=== PATIENT | female | born 1950 | race Asian ===

== ENCOUNTER 2018-10-25 19:56 | Inpatient (IN) | payer MEDICARE, OTHER ==
[~2018-10-25] VITALS: Ht 152.4 cm; Wt 63.1 kg
[~2018-10-25 19:56] MED LIST: AMLODIPINE; ASPI-818 PO; CARVEDILOL; CLONIDINE
[2018-10-25] MEDS ORDERED: ATROPINE 1 MG/10 ML SYRINGE ONE (20:21)
[2018-10-25] MEDS ORDERED: ATROPINE 1 MG/10 ML SYRINGE IV SCH (20:30)
[2018-10-25] MEDS ORDERED: ATROPINE 1 MG INJ IV ONE (20:30)
[2018-10-25] MEDS ORDERED: SOD CHLORIDE IVPB ONE (21:00)
[2018-10-25] MEDS ORDERED: DIGOXIN IMMUNE FAB IVPB ONE (21:00)
[2018-10-25] MEDS ORDERED: DIGOXIN IMMUNE FAB (OVINE) 1 VIAL in SOD CHLORIDE 0.9% 50 ML IVPB ONE (23:00)
[2018-10-25] MEDS ORDERED: ENOXAPARIN 60 MG/0.6 ML SYG SC ONE (23:30)
--- NOTE | 2018-10-25 23:39 | ERD ---
ER Documentation Chief Complaint Chief Complaint BRADYCARDIA HPI This is a 68-year-old female who was sent by Dr. Driscoll for bradycardia and blurry vision. He did a digoxin level this afternoon and it read greater than 5 so she was sent here. The patient is completely asymptomatic denies any chest pain shortness of breath dizziness or weakness no neurological complaints either ROS All systems reviewed and are negative except as per history of present illness. Medications Home Meds Reported Medications [Carvedilol] No Conflict Check 10/26/15 [Amlodipine] No Conflict Check 10/26/15 [Clonidine] No Conflict Check 10/26/15 Aspirin (Aspirin Low Dose) 81 Mg Tablet.dr, 81 MG PO DAILY 10/21/13 Allergies Allergies: Coded Allergies: Penicillins (Unverified Allergy, Mild, 11/23/13) RE-ENTERED UNCODED ALLERGY CODED Uncoded Allergies: PCN (Allergy, Mild, 11/10/13) RASH NKDA (Adverse Reaction, Unknown, 10/26/15) PMhx/Soc History of Surgery: Yes (CORONARY ARTERY BYPASS GRAFT) Anesthesia Reaction: No Hx Neurological Disorder: Yes (MINI STROKE) Hx Respiratory Disorders: No Hx Cardiac Disorders: Yes (CORONARY ARTERY DISEASE, HYPERTENSION) Hx Psychiatric Problems: No Hx Miscellaneous Medical Probl: No Hx Alcohol Use: No Hx Substance Use: No Hx Tobacco Use: No Smoking Status: Never smoker FmHx Family History: No coronary disease Physical Exam Vitals Vital Signs Date Temp Pulse Resp B/P (MAP) Pulse Ox O2 O2 Flow FiO2 Time Delivery Rate 10/25/18 43 22 138/63 96 Room Air 23:27 (88) 10/25/18 97.2 36 21 149/81 96 20:25 (103) Physical Exam Const: Well-developed, well-nourished Head: Atraumatic, normocephalic Eyes: Normal Conjunctiva, PERRLA, EOMI, normal sclera, no nystagmus ENT: Normal External Ears, Nose and Mouth, moist mucus membranes. Neck: Full range of motion. No meningismus, no lymphadenopathy. Resp: Clear to auscultation bilaterally, no wheezing, rhonchi, rales Cardio: Bradycardia, no murmurs, S1 S2 present Abd: Soft, non tender x 4, non distended. Normal bowel sounds, no guarding or rebound, no pulsitile abdominal masses or bruits Skin: No petechiae or rashes, no ecchymosis , no maculopapular rash Back: No midline or flank tenderness Ext: No cyanosis, or edema, FROM x 4, normal inspection, neurovascularly intact x 4 Neur: Awake and alert, STR 5/5 x 4, sensation intact x 4, no focal findings, cerebellum intact Psych: Normal Mood and Affect Result Diagram: 10/25/18200910/25/182009 Results 24 hrs Laboratory Tests Test 10/25/18 20:10 White Blood Count 5.7 10^3/ul Red Blood Count 3.56 10^6/ul Hemoglobin 10.8 g/dl Hematocrit 34.2 % Mean Corpuscular Volume 96.1 fl Mean Corpuscular Hemoglobin 30.3 pg Mean Corpuscular Hemoglobin Concent 31.6 g/dl Red Cell Distribution Width 16.2 % Platelet Count 94 10^3/UL Mean Platelet Volume 12.8 fl Immature Granulocytes % 0.200 % Neutrophils % 74.6 % Lymphocytes % 13.4 % Monocytes % 8.8 % Eosinophils % 2.1 % Basophils % 0.9 % Nucleated Red Blood Cells % 0.0 /100WBC Immature Granulocytes # 0.010 10^3/ul Neutrophils # 4.3 10^3/ul Lymphocytes # 0.8 10^3/ul Monocytes # 0.5 10^3/ul Eosinophils # 0.1 10^3/ul Basophils # 0.1 10^3/ul Nucleated Red Blood Cells # 0.0 10^3/ul Sodium Level 137 mmol/L Potassium Level 5.5 mmol/L Chloride Level 102 mmol/L Carbon Dioxide Level 23 mmol/L Anion Gap 12 Blood Urea Nitrogen 81 mg/dl Creatinine 3.69 mg/dl Est Glomerular Filtrat Rate mL/min 12 mL/min Glucose Level 130 mg/dl Calcium Level 9.0 mg/dl Magnesium Level 2.9 mg/dl Total Bilirubin 1.0 mg/dl Direct Bilirubin 0.10 mg/dl Indirect Bilirubin 0.9 mg/dl Aspartate Amino Transf (AST/SGOT) 243 IU/L Alanine Aminotransferase (ALT/SGPT) 204 IU/L Alkaline Phosphatase 405 IU/L Troponin I 0.148 ng/ml B-Type Natriuretic Peptide 32846 PG/ML Total Protein 8.2 g/dl Albumin 4.0 g/dl Globulin 4.20 g/dl Albumin/Globulin Ratio 0.95 Digoxin Level 7.2 ng/ml Current Medications Medications Dose Sig/Ean Start Time Status Last (Trade) Ordered Route PRN Stop Time Admin Dose Reason Admin Atropine 1 mg ONCE ONCE 10/25/18 Cancel Sulfate IV 20:30 10/25/18 (Atropine) 20:31 Digoxin 50 ml @ ONCE ONCE 10/25/18 DC 10/25/18 Immune LAKHWINDER 3 100 mls/hr IVPB 21:00 10/25/18 22:34 vial/Sodium 21:29 Chloride Atropine 1 mg ONCE IV 10/25/18 DC 10/25/18 Sulfate 20:30 10/25/18 20:52 (Atropine 23:00 (Syringe)) Atropine 1 mg STK-MED 10/25/18 DC Sulfate ONCE .ROUTE 20:21 10/25/18 (Atropine 20:22 (Syringe)) Digoxin 50 ml @ ONCE ONCE 10/25/18 DC Immune LAKHWINDER 1 100 mls/hr IVPB 23:00 10/25/18 vial/Sodium 23:29 Chloride Enoxaparin 50 mg ONCE ONCE 10/25/18 DC Sodium SC 23:30 10/25/18 (Lovenox) 23:31 Procedures/MDM EKG: Rate/Rhythm: Idioventricular rhythm heart rate 36 QRS, ST, QT: NORMAL DC, QRS, QT] Impression: Abnormal EKG EKG: Rate/Rhythm: Atrial fibrillation with slow ventricular response QRS, ST, QT: NORMAL DC, QRS, QT] Impression: A. fib with slow ventricular response Patient was given atropine 1 mg x 2. Heart rate has been remaining stable in the upper 30s and in the 40s. The patient was given 4 vials of Digibind, I ordered 10 vials but the hospital only has 4 in stock The patient's potassium is 5.5. Magnesium is 2.5. Patient is hemodynamically stable bradycardia. Spoke with the primary Dr. Driscoll and will admit to telemetry, will let the digoxin wear off Critical Care Time: 40 minutes Treatments/Evaluations: Close monitoring and treatment of unstable vital signs, cardiorespiratory, and neurologic status, while maintaining tight balance of fluid, respiratory, and cardiac interventions. This time includes discussing the case with the patient and the patient's family. This time does not include all procedures stated elsewhere in this record. This time also includes reviewing old records, labs and radiological studies. This time includes examining and re- examining the patient. Additionally, this time also includes arranging care with admitting and consulting physicians. Departure Diagnosis: Primary Impression: Digoxin toxicity Encounter type: initial encounter Injury intent: accidental or unintentional Qualified Codes: T46.0X1A - Poisoning by cardiac-stimulant glycosides and drugs of similar action, accidental (unintentional), initial encounter Additional Impression: Bradycardia Condition: Stable ERIN KEITA DO Oct 25, 2018 23:39
[2018-10-26] VITALS (11 sets, daily range): BP systolic 150–174; BP diastolic 65–84; PULSE 44–57; RESP 16–20; BMI 20.5
[2018-10-26] MEDS ORDERED: ONDANSETRON 4 MG INJ IV PRN
[2018-10-26] MEDS ORDERED: ATROPINE 1 MG/10 ML SYRINGE IV ONE
[2018-10-26] MEDS ORDERED: ATROPINE 1 MG INJ IV ONE
[2018-10-26] MEDS ORDERED: ASPI-1044 PO (00:30)
[2018-10-26] MEDS ORDERED: AMLO-145 PO (00:30)
[2018-10-26] MEDS ORDERED: ATOR40TA68 PO (00:30)
[2018-10-26] MEDS ORDERED: METO-429 PO (00:30)
[2018-10-26] MEDS ORDERED: FURO20TA3 PO (00:30)
[2018-10-26] MEDS ORDERED: LISI2.5T59 PO (00:30)
[2018-10-26] MEDS ORDERED: RIVA20TA5 PO (00:30)
[2018-10-26] MEDS ORDERED: PANT40TA4 PO (03:21)
[2018-10-26] MEDS ORDERED: LOSA50TA14 PO (03:21)
[2018-10-26] MEDS ORDERED: ALLO300T2 PO (03:21)
[2018-10-26] MEDS ORDERED: FURO40TA4 PO (03:21)
[2018-10-26] MEDS ORDERED: APIX2.5T PO (03:21)
[2018-10-26] MEDS ORDERED: TRAM50TA2 PO (03:21)
[2018-10-26] MEDS ORDERED: AMIO200T4 PO (03:21)
[2018-10-26] MEDS ORDERED: ACETAMINOPHEN 325 MG TAB PO PRN ×2 (04:30)
[2018-10-26] MEDS ORDERED: traMADol 50 MG TAB PO PRN (04:30)
[2018-10-26] MEDS ORDERED: NACL 0.9% 3 ML SYG IV SCH (04:30)
[2018-10-26] MEDS: SOD CHLORIDE 0.9% 1,000 ML IV SCH (04:47)
[2018-10-26] MEDS: PANTOPRAZOLE (EC) 40 MG TAB PO SCH ×2 (04:47→05:40)
[2018-10-26] MEDS: ASPIRIN 81 MG TAB PO SCH (08:31)
[2018-10-26] MEDS: MULTIVITAMINS/MINERALS TAB PO SCH (08:31)
[2018-10-26] MEDS: LOSARTAN 50 MG TAB PO SCH (08:32)
[2018-10-26] MEDS: POLYETHYLENE GLYCOL 17 GM PACKET PO SCH (08:32)
[2018-10-26] MEDS ORDERED: ALLOPURINOL 300 MG TAB PO SCH (09:00)
--- NOTE | 2018-10-26 11:43 | HP ---
Date/Time of Note Date/Time of Note DATE: 10/26/18 TIME: 11:40 Assessment/Plan VTE [place]axis [place] [facility] [place]: 6 [place]CD [place] [facility] [place] Yes Pharmacological prophylaxis: apixaban Lines/Catheters IV Catheter Type (from [facility]): Saline Lock Urinary Cath still in place: No Assessment/Plan Hospital Course 1. Digoxin toxicity. bradycardia. 2. CHF with elevated BNP. Trop. is also elevated. 3. Hypertension 4. CAD 5. S/p CORONARY ARTERY BYPASS 6. Hyperkalemia, resolved. It might be related to prerenal reasons, bradycardia. 7. DOUGLAS on CKD. 8. hx of small transverse colon polyp, that was removed using the biopsy forceps. 9. Diverticulosis of the colon. 10. Normocytic normochromic anemia more likely due to chronic kidney disease 11. Transaminitis 2.2 dig. toxicity vs chronic. Base line is unknown 12. Gout Assessment/Plan -dr Buchanan cardiology consult aware -DVT proph. eliquiz -iron panel -GI proph. Protonix -telemetry service -daily creatinine -c/w home meds -daily IV fluids Result Diagram: 10/26/18 0745 10/26/18 0745 Results 24hrs Laboratory Tests Test 10/25/18 20:10 10/26/18 07:45 White Blood Count 5.7 5.9 Red Blood Count 3.56 L 3.67 L Hemoglobin 10.8 L 11.2 L Hematocrit 34.2 L 35.1 L Mean Corpuscular Volume 96.1 95.6 Mean Corpuscular Hemoglobin 30.3 30.5 Mean Corpuscular Hemoglobin Concent 31.6 L 31.9 L Red Cell Distribution Width 16.2 H 16.5 H Platelet Count 94 L 104 L Mean Platelet Volume 12.8 H 12.4 H Immature Granulocytes % 0.200 0.300 Neutrophils % 74.6 82.9 H Lymphocytes % 13.4 L 9.4 L Monocytes % 8.8 6.0 Eosinophils % 2.1 0.9 Basophils % 0.9 0.5 Nucleated Red Blood Cells % 0.0 0.0 Immature Granulocytes # 0.010 0.020 Neutrophils # 4.3 4.9 Lymphocytes # 0.8 0.6 L Monocytes # 0.5 0.4 Eosinophils # 0.1 0.1 Basophils # 0.1 0.0 Nucleated Red Blood Cells # 0.0 0.0 Sodium Level 137 142 Potassium Level 5.5 H 4.2 Chloride Level 102 105 Carbon Dioxide Level 23 24 Anion Gap 12 13 Blood Urea Nitrogen 81 H 77 H Creatinine 3.69 H 3.26 H Est Glomerular Filtrat Rate mL/min 12 L 14 L Glucose Level 130 99 Calcium Level 9.0 8.9 Magnesium Level 2.9 H Total Bilirubin 1.0 1.2 Direct Bilirubin 0.10 0.20 Indirect Bilirubin 0.9 1.0 Aspartate Amino Transf (AST/SGOT) 243 H 205 H Alanine Aminotransferase (ALT/SGPT) 204 H 174 H Alkaline Phosphatase 405 H 368 H Troponin I 0.148 *H B-Type Natriuretic Peptide 85737 H Total Protein 8.2 H 8.0 Albumin 4.0 3.9 Globulin 4.20 H 4.10 H Albumin/Globulin Ratio 0.95 0.95 Digoxin Level 7.2 *H 14.2 #*H HPI/ROS Admit Date/Time Admit Date/Time Oct 25, 2018 at 23:41 Hx of Present Illness This is a 68-year-old female with history of hypertension, CKD, gout, CHF, CAD, hyperlipidemia, cardiac stent was sent by Dr. Driscoll for bradycardia and blurry vision. He did a digoxin level and it was elevated. In hospital it is 7.2 and 14.2. Pt also has positive troponin level. Pt is a poor historian, unknown her base line ROS no complaints PMH/Family/Social Past Medical History Medications Current Medications Sodium Chloride 1,000 ml @ 50 mls/hr Q20H IV Last administered on 10/26/18at 04:47; Admin Dose 50 MLS/HR; Start 10/26/18 at 04:30 IV Flush (NS 3 ml) 3 ml PER PROTOCOL IV ; Start 10/26/18 at 04:30 Ondansetron HCl (Zofran Inj) 4 mg Q6H PRN IV NAUSEA/VOMITING; Start 10/26/18 at 04:30 Acetaminophen (Tylenol Tab) 650 mg Q6H PRN PO .PAIN 1-3 OR TEMP; Start 10/26/18 at 04:30 Pantoprazole (Protonix Tab) 40 mg DAILY@06 PO Last administered on 10/26/18at 05:40; Admin Dose 40 MG; Start 6/8/19 at 06:00 Allopurinol (Zyloprim) 300 mg DAILY PO Last administered on 10/26/18 08:31; Admin Dose 300 MG; Start 10/26/18 at 09:00 Aspirin (Aspirin) 81 mg DAILY PO Last administered on 10/26/18 08:31; Admin Dose 81 MG; Start 10/26/18 at 09:00 Losartan Potassium (Cozaar) 50 mg DAILY PO Last administered on 10/26/18 08:32; Admin Dose 50 MG; Start 10/26/18 at 09:00 Multivitamins/ Minerals (Theragran-M) 1 tab DAILY PO Last administered on 10/26/18 08:31; Admin Dose 1 TAB; Start 10/26/18 at 09:00 Atorvastatin Calcium (Lipitor) 40 mg HS PO ; Start 10/26/18 at 21:00 Tramadol HCl (Ultram) 50 mg Q6 PRN PO PAIN; Start 10/26/18 at 04:30 Polyethylene Glycol (Miralax) 17 gm DAILY PO Last administered on 10/26/18 08:32; Admin Dose 17 GM; Start 10/26/18 at 09:00 Coded Allergies: Penicillins (Unverified Allergy, Mild, 11/23/13) RE-ENTERED UNCODED ALLERGY CODED Social History Smoking Status: Never smoker Exam/Review of Systems Vital Signs Vitals Vital Signs Date Temp Pulse Resp B/P (MAP) Pulse Ox O2 O2 Flow FiO2 Time Delivery Rate 10/26/18 98.0 53 16 161/77 93 11:21 (105) 10/26/18 Room Air 03:00 10/26/18 2.0 02:00 Intake and Output 10/25/18 10/25/18 10/26/18 1515:00 23:00 07:00 IntakeIntake Total 100 ml BalanceBalance 100 ml Exam Exam pigmented skin Constitutional: alert, frail Head: normocephalic Eyes: nl conjunctiva ENMT: nl external ears & nose Neck: supple Cardiovascular: regular rate and rhythm, other (bradycardia) Gastrointestinal: soft ARSALAN MAJANO Oct 26, 2018 11:43
--- NOTE | 2018-10-26 18:04 | CONS ---
DATE OF ADMISSION: 10/25/2018 DATE OF CONSULTATION: 10/26/2018 REASON FOR CONSULTATION: Bradycardia, digoxin toxicity. REQUESTING PHYSICIAN: Juan Driscoll MD HISTORY OF PRESENT ILLNESS: Ms. Moncada is a 68-year-old female with history of coronary artery disease, status post coronary bypass graft surgery in 2013, receiving a GARCIA to LAD, SVG to OM, SVG to PDA, hypertension, dyslipidemia, prior myocardial infarction, cardiomyopathy, decreased left ventricular ejection fraction, who was noted at her chronic care facility to tell her primary physician that she is having visual problems after a recent admit to an outside hospital where she had required digoxin for likely treatment of atrial fibrillation. The patient subsequently transferred to [facility] where upon arrival, temperature 97.2, blood pressure 139/81, pulse 96, respiratory rate 21, satting 96%. The patient's labs revealed white count 5.7, hemoglobin 10.8, platelet count of 94. Sodium 137, potassium 5.5, creatinine 3.69, magnesium 2.9, AST 243, ALT 24, alkaline phosphatase 405. Troponin 0.148. BNP of 11,700. Digoxin level of 7.2 followed by digoxin level of 14.2. The patient's chest x-ray revealed mild history of pulmonary congestion. The patient's electrocardiogram had revealed a probable ventricular escape rhythm at a rate of 34 with a left axis deviation, nonspecific ST-T abnormalities, right bundle branch block pattern. The patient subsequently required treatment with Digibind, a dose of atropine, has been admitted to the floor where she remains at this time. Continues to have heart rates in the 40s, likely a junctional escape rhythm at this time with elevated systolic blood pressures. The patient denies chest pain, shortness of breath, ongoing visual disturbances. PAST MEDICAL HISTORY: As above in HPI. MEDICATIONS CURRENTLY IN HOSPITAL: 1. Lipitor 40 mg at bedtime. 2. Eliquis 2.5 mg p.o. b.i.d. 3. Allopurinol 200 mg daily. 4. Aspirin 81 daily. 5. Cozaar 50 mg daily. 6. Theragran. 7. MiraLax. 8. Protonix. 9. IV fluid hydration. ALLERGIES: PENICILLIN. SOCIAL HISTORY: No current tobacco, EtOH or illicit drug use. FAMILY HISTORY: No history of sudden cardiac or early CAD. REVIEW OF SYSTEMS: As above in HPI. CONSTITUTIONAL: No fevers, chills. PULMONARY: No current shortness of breath. CARDIOVASCULAR: Bradycardia. GASTROINTESTINAL: No vomiting. GENITOURINARY: No hematuria. MUSCULOSKELETAL: Degenerative joint disease. PSYCHIATRIC: The patient denies depression. NEUROLOGIC: No documented history of CVA. PHYSICAL EXAMINATION: VITAL SIGNS: Temperature of 98, blood pressure 120/77, pulse 60, respiratory rate 16, sat 98%. GENERAL: The patient is alert, awake, in no acute distress. NECK: JVP approximately 9 cm of water. CHEST: Fair air movement throughout. HEART: Bradycardic, regular rhythm, normal S1, S2, I/ systolic murmur, nondisplaced PMI. ABDOMEN: Positive bowel sounds, soft. EXTREMITIES: No edema, 1+ pulses bilaterally to posterior tibial. LABORATORY DATA: Most recent from today, sodium 143, potassium 4.2, creatinine 3.26, BUN of 77, AST 205, ALT 174, alkaline phosphatase 368. White blood cell count 5.9, hemoglobin 11.2, platelet count of 104. IMAGING STUDIES: As above in HPI revealed pulmonary vascular congestion. ECG: As above in HPI. No further electrocardiograms for my review at this time. IMPRESSION: 1. Bradycardia, in the setting of digoxin toxicity with sequelae of that digoxin toxicity and visual disturbances. 2. Slowly improving status post Digibind. 3. Paroxysmal atrial fibrillation, currently in a likely junctional escape rhythm in the setting of digoxin toxicity, on Eliquis. 4. Hypertension, uncontrolled. 5. History of cardiomyopathy, decreased left ventricular ejection fraction. 6. History of coronary artery disease, status post coronary artery bypass graft surgery x4 in 2014. 7. Positive troponin in the setting of severe renal dysfunction and 3 bradycardia. 8. Dyslipidemia. 9. Acute on chronic renal failure, being followed by Dr. Driscoll with ongoing hydration. 10. Hyperkalemia, improved. 11. Increased liver function tests, ongoing. RECOMMENDATIONS: 1. At this time, we would maintain patient on telemetry monitoring to follow rhythm and rates closely. 2. Continue to hold digoxin and follow heart rate closely and maintain pacer pads at this time and follow digoxin levels. I do not think there is no reason to give Digibind at this time just continue to follow the patient's rhythm closely. 3. Continue the patient's aspirin prophylaxis and Eliquis for prevention of thromboembolic complications in the setting of paroxysmal atrial fibrillation. We are going to check a 2D echo to reassess patient's ejection fraction, wall motion and major abnormalities. 4. Continue to trend the patient's cardiac enzymes, assess for any significant ongoing cardiac damage. 5. Continue the patient's IV fluid hydration, monitor closely given history of decreased EF. 6. Consider additional antihypertensives to improve overall systolic blood pressure control. Given the patient's decreased EF likely would proceed with the hydralazine. Thank you for allowing me to take part in the care of this patient. I will continue to follow very closely with you. Further recommendations will be made as the patient progresses through her inpatient hospital clinical course. Dictated By: ABDI JUÁREZ/NEREIDA Conf#: [id number] DID#: [id number] MTDD
[2018-10-26] MEDS: APIXABAN 5 MG TABLET PO SCH (22:51)
[2018-10-26] MEDS: ATORVASTATIN 40 MG TAB PO SCH (22:52)
[2018-10-27] VITALS (12 sets, daily range): BP systolic 125–163; BP diastolic 58–78; PULSE 37–52; RESP 17–18
[2018-10-27] MEDS: SOD CHLORIDE 0.9% 1,000 ML IV SCH (04:36)
[2018-10-27] MEDS: PANTOPRAZOLE (EC) 40 MG TAB PO SCH (05:10)
[2018-10-27] MEDS: POLYETHYLENE GLYCOL 17 GM PACKET PO SCH (08:31)
[2018-10-27] MEDS: MULTIVITAMINS/MINERALS TAB PO SCH (08:32)
[2018-10-27] MEDS: ASPIRIN 81 MG TAB PO SCH (08:32)
[2018-10-27] MEDS: APIXABAN 5 MG TABLET PO SCH ×2 (08:32→22:15)
[2018-10-27] MEDS: LOSARTAN 50 MG TAB PO SCH (08:33)
[2018-10-27] MEDS: ALLOPURINOL 100 MG TAB PO SCH (08:33)
--- NOTE | 2018-10-27 11:58 | PN ---
Date/Time of Note Date/Time of Note DATE: 10/27/18 TIME: 11:58 Assessment/Plan VTE Prophylaxis Risk score (from [facility] [place]0 risk: 6 SCD applied (from [facility] [place]): Yes Pharmacological prophylaxis: apixaban Lines/Catheters IV Catheter Type (from [facility]): Saline Lock Urinary Cath still in place: No Assessment/Plan Hospital Course 1. Digoxin toxicity. bradycardia. 2. CHF with elevated BNP. Trop. is also elevated. 3. Hypertension 4. CAD 5. S/p CORONARY ARTERY BYPASS 6. Hyperkalemia, resolved. It might be related to prerenal reasons, bradycardia. 7. DOUGLAS on CKD. Creatinine is improved 8. hx of small transverse colon polyp, that was removed using the biopsy forceps. 9. Diverticulosis of the colon. 10. Normocytic normochromic anemia more likely due to chronic kidney disease 11. Transaminitis 2.2 dig. toxicity vs chronic. Base line is unknown. Improved 12. Gout 13. Hypothyroidism 14. Prediabetic Assessment/Plan -dr Buchanan cardiology consult aware -pos. troponin -DVT proph. eliquiz -iron panel tmv -c/w Allopurinol 200 mg po daily -start thyroid supplement -GI proph. Protonix -telemetry service -daily creatinine -c/w home meds -daily gentle IV fluids Result Diagram: 10/27/1852810/27/18 0529 Results 24hrs Laboratory Tests Test 10/27/18 05:29 White Blood Count 5.5 Red Blood Count 3.33 L Hemoglobin 10.2 L Hematocrit 31.3 L Mean Corpuscular Volume 94.0 Mean Corpuscular Hemoglobin 30.6 Mean Corpuscular Hemoglobin Concent 32.6 Red Cell Distribution Width 16.8 H Platelet Count 80 #L Mean Platelet Volume 13.6 H Immature Granulocytes % 0.400 Neutrophils % Segmented Neutrophils % (Manual) 89 H Band Neutrophils % (Manual) 1 Lymphocytes % Lymphocytes % (Manual) 8 L Monocytes % Monocytes % (Manual) 1 Eosinophils % Eosinophils % (Manual) 1 Basophils % Nucleated Red Blood Cells % 0.0 Immature Granulocytes # 0.020 Neutrophils # Neutrophils # (Manual) 4.9 Band Neutrophils # 0.0 Lymphocytes (Manual) 0.4 L Lymphocytes # Monocytes # Monocytes # (Manual) 0.0 L Eosinophils # Basophils # Nucleated Red Blood Cells # Platelet Estimate DECREASED Polychromasia 3+ Poikilocytosis 1+ Anisocytosis 3+ Macrocytosis 3+ Sodium Level 142 Potassium Level 4.1 Chloride Level 110 Carbon Dioxide Level 23 Anion Gap 9 Blood Urea Nitrogen 64 H Creatinine 2.90 H Est Glomerular Filtrat Rate mL/min 16 L Glucose Level 98 Hemoglobin A1c 5.8 Calcium Level 8.9 Creatine Kinase 60 Creatine Kinase Index 9.5 Creatinine Kinase MB (Mass) 5.69 H Troponin I 0.181 *H Digoxin Level 3.7 #*H Subjective 24 Hr Interval Summary Constitutional: no complaints Cardiovascular: chest pain; No no complaints, No edema, No lightheadedness, No orthopenea, No palpitations, No paroxysmal nocturnal dyspnea, No other Exam/Review of Systems Exam Vitals Vital Signs Date Temp Pulse Resp B/P (MAP) Pulse Ox O2 O2 Flow FiO2 Time Delivery Rate 10/27/18 97.7 42 17 163/78 94 11:37 (106) 10/27/18 Room Air 03:40 10/26/18 2.0 02:00 Intake and Output 10/26/18 10/26/18 10/27/18 1515:00 23:00 07:00 IntakeIntake Total 900 ml 820 ml BalanceBalance 900 ml 820 ml Constitutional: alert, oriented Respiratory: clear to auscultation Cardiovascular: regular rate and rhythm, other (bradycardia) Gastrointestinal: soft Musculoskeletal: muscle weakness Results Results 24hrs Laboratory Tests Test 10/27/18 05:29 White Blood Count 5.5 Red Blood Count 3.33 L Hemoglobin 10.2 L Hematocrit 31.3 L Mean Corpuscular Volume 94.0 Mean Corpuscular Hemoglobin 30.6 Mean Corpuscular Hemoglobin Concent 32.6 Red Cell Distribution Width 16.8 H Platelet Count 80 #L Mean Platelet Volume 13.6 H Immature Granulocytes % 0.400 Neutrophils % Segmented Neutrophils % (Manual) 89 H Band Neutrophils % (Manual) 1 Lymphocytes % Lymphocytes % (Manual) 8 L Monocytes % Monocytes % (Manual) 1 Eosinophils % Eosinophils % (Manual) 1 Basophils % Nucleated Red Blood Cells % 0.0 Immature Granulocytes # 0.020 Neutrophils # Neutrophils # (Manual) 4.9 Band Neutrophils # 0.0 Lymphocytes (Manual) 0.4 L Lymphocytes # Monocytes # Monocytes # (Manual) 0.0 L Eosinophils # Basophils # Nucleated Red Blood Cells # Platelet Estimate DECREASED Polychromasia 3+ Poikilocytosis 1+ Anisocytosis 3+ Macrocytosis 3+ Sodium Level 142 Potassium Level 4.1 Chloride Level 110 Carbon Dioxide Level 23 Anion Gap 9 Blood Urea Nitrogen 64 H Creatinine 2.90 H Est Glomerular Filtrat Rate mL/min 16 L Glucose Level 98 Hemoglobin A1c 5.8 Calcium Level 8.9 Creatine Kinase 60 Creatine Kinase Index 9.5 Creatinine Kinase MB (Mass) 5.69 H Troponin I 0.181 *H Digoxin Level 3.7 #*H Medications Medication Current Medications Sodium Chloride 1,000 ml @ 50 mls/hr Q20H IV Last administered on 10/27/18 04:36; Admin Dose 50 MLS/HR; Start 10/26/18 at 04:30 IV Flush (NS 3 ml) 3 ml PER PROTOCOL IV ; Start 10/26/18 at 04:30 Ondansetron HCl (Zofran Inj) 4 mg Q6H PRN IV NAUSEA/VOMITING; Start 10/26/18 at 04:30 Acetaminophen (Tylenol Tab) 650 mg Q6H PRN PO .PAIN 1-3 OR TEMP; Start 10/26/18 at 04:30 Pantoprazole (Protonix Tab) 40 mg DAILY@06 PO Last administered on 10/27/18 05:10; Admin Dose 40 MG; Start 10/26/18 at 06:00 Aspirin (Aspirin) 81 mg DAILY PO Last administered on 10/27/18 08:32; Admin D ose 81 MG; Start 10/26/18 at 09:00 Losartan Potassium (Cozaar) 50 mg DAILY PO Last administered on 10/27/18 08:33; Admin Dose 50 MG; Start 10/26/18 at 09:00 Multivitamins/ Minerals (Theragran-M) 1 tab DAILY PO Last administered on 10/27/18 08:32; Admin Dose 1 TAB; Start 10/26/18 at 09:00 Atorvastatin Calcium (Lipitor) 40 mg HS PO Last administered on 10/26/18 22:52; Admin Dose 40 MG; Start 10/26/18 at 21:00 Tramadol HCl (Ultram) 50 mg Q6 PRN PO PAIN; Start 10/26/18 at 04:30 Polyethylene Glycol (Miralax) 17 gm DAILY PO Last administered on 10/27/18 08:31; Admin Dose 17 GM; Start 10/26/18 at 09:00 Apixaban (Eliquis) 2.5 mg BID PO Last administered on 10/27/18at 08:32; Admin Dose 2.5 MG; Start 10/26/18 at 21:00 Hydralazine HCl (Apresoline) 25 mg Q8 PO Last administered on 10/27/18at 05:11; Admin Dose 25 MG; Start 10/26/18 at 15:00 Allopurinol (Zyloprim) 200 mg DAILY PO Last administered on 10/27/18at 08:33; Admin Dose 200 MG; Start 10/27/18 at 09:00 ARSALAN MAJANO Oct 27, 2018 11:58
--- NOTE | 2018-10-27 14:47 | CONS ---
Assessment/Plan Assessment/Plan Hospital Course (Demo Recall) IMPRESSION: 1. Bradycardia, in the setting of digoxin toxicity with sequelae of that digoxin toxicity and visual disturbances.- slowly decreasing levels of digoxin with ongoing bradycardia but stable to elevated BP 2. Digoxin toxicity-Slowly improving status post Digibind. 3. Paroxysmal atrial fibrillation, currently in a likely junctional escape rhythm in the setting of digoxin toxicity, on Eliquis. 4. Hypertension, uncontrolled still 5. History of cardiomyopathy, decreased left ventricular ejection fraction. 6. History of coronary artery disease, status post coronary artery bypass graft surgery x4 in 2013. 7. Positive troponin in the setting of severe renal dysfunction and severe bradycardia- no sig uptrend 8. Dyslipidemia. 9. Acute on chronic renal failure, being followed by Dr. Dale with ongoing hydration.-slowly improving 10. Hyperkalemia, improved. 11. Increased liver function tests, ongoing. 12. Hypothyroid-elevated TSH Recc: -Tele -serial ecg's -continue eliquis -Contineu to follow rhythm/rate clsoely -continue losartan and hydralazine with probable need for increase in dose of hydralazine to improve BP control -Follow visual disturbance/appetite/GI symptoms closely -started on synthroid Consultation Date/Type/Reason Admit Date/Time Oct 25, 2018 at 23:41 Initial Consult Date 10/26/18 Type of Consult Cardiology Reason for Consultation digoxin toxicity/bradycardia Requesting Provider: RADHA DALE Date/Time of Note DATE: 10/27/18 TIME: 14:41 Exam/Review of Systems Vital Signs Vitals Vital Signs Date Temp Pulse Resp B/P (MAP) Pulse Ox O2 O2 Flow FiO2 Time Delivery Rate 10/27/18 37 12:44 10/27/18 97.7 17 163/78 94 11:37 (106) 10/27/18 Room Air 03:40 10/26/18 2.0 02:00 Intake and Output 10/26/18 10/26/18 10/27/18 1515:00 23:00 07:00 IntakeIntake Total 900 ml 820 ml BalanceBalance 900 ml 820 ml Exam Exam Review of Systems: CONSTITUTIONAL: No fevers, chills. PULMONARY: No sob CARDIOVASCULAR: No chest pain/palpitations GASTROINTESTINAL: mild nausea/decreased appetite GENITOURINARY: No hematuria/dysuria. MUSCULOSKELETAL: No myagias/arthalgias. PSYCHIATRIC: The patient denies depression. NEUROLOGIC: No weakness, + visual disturbance ongoing Constitutional: alert Psych: no complaints Head: normocephalic ENMT: mucosa pink and moist Neck: supple, jvd (cm water) Cardiovascular: regular rate and rhythm Gastrointestinal: soft, non-tender Musculoskeletal: muscle tone (normal) Extremities: edema (none) Neurological: other (No focal deficits, + visual disturbance) Labs Result Diagram: 10/27/1852810/27/18 0529 Results 24hrs Laboratory Tests Test 10/27/18 05:29 White Blood Count 5.5 Red Blood Count 3.33 L Hemoglobin 10.2 L Hematocrit 31.3 L Mean Corpuscular Volume 94.0 Mean Corpuscular Hemoglobin 30.6 Mean Corpuscular Hemoglobin Concent 32.6 Red Cell Distribution Width 16.8 H Platelet Count 80 #L Mean Platelet Volume 13.6 H Immature Granulocytes % 0.400 Neutrophils % Segmented Neutrophils % (Manual) 89 H Band Neutrophils % (Manual) 1 Lymphocytes % Lymphocytes % (Manual) 8 L Monocytes % Monocytes % (Manual) 1 Eosinophils % Eosinophils % (Manual) 1 Basophils % Nucleated Red Blood Cells % 0.0 Immature Granulocytes # 0.020 Neutrophils # Neutrophils # (Manual) 4.9 Band Neutrophils # 0.0 Lymphocytes (Manual) 0.4 L Lymphocytes # Monocytes # Monocytes # (Manual) 0.0 L Eosinophils # Basophils # Nucleated Red Blood Cells # Platelet Estimate DECREASED Polychromasia 3+ Poikilocytosis 1+ Anisocytosis 3+ Macrocytosis 3+ Sodium Level 142 Potassium Level 4.1 Chloride Level 110 Carbon Dioxide Level 23 Anion Gap 9 Blood Urea Nitrogen 64 H Creatinine 2.90 H Est Glomerular Filtrat Rate mL/min 16 L Glucose Level 98 Hemoglobin A1c 5.8 Calcium Level 8.9 Creatine Kinase 60 Creatine Kinase Index 9.5 Creatinine Kinase MB (Mass) 5.69 H Troponin I 0.181 *H Digoxin Level 3.7 #*H Medications Medications Current Medications Sodium Chloride 1,000 ml @ 30 mls/hr Q24H IV Last administered on 10/27/18at 04:36; Admin Dose 50 MLS/HR; Start 10/26/18 at 04:30 IV Flush (NS 3 ml) 3 ml PER PROTOCOL IV ; Start 10/26/18 at 04:30 Ondansetron HCl (Zofran Inj) 4 mg Q6H PRN IV NAUSEA/VOMITING; Start 10/26/18 at 04:30 Acetaminophen (Tylenol Tab) 650 mg Q6H PRN PO .PAIN 1-3 OR TEMP; Start 10/26/18 at 04:30 Pantoprazole (Protonix Tab) 40 mg DAILY@06 PO Last administered on 10/27/18 05:10; Admin Dose 40 MG; Start 10/26/18 at 06:00 Aspirin (Aspirin) 81 mg DAILY PO Last administered on 10/27/18 08:32; Admin Dos e 81 MG; Start 10/26/18 at 09:00 Losartan Potassium (Cozaar) 50 mg DAILY PO Last administered on 10/27/18 08:33; Admin Dose 50 MG; Start 10/26/18 at 09:00 Multivitamins/ Minerals (Theragran-M) 1 tab DAILY PO Last administered on 10/27/18 08:32; Admin Dose 1 TAB; Start 10/26/18 at 09:00 Atorvastatin Calcium (Lipitor) 40 mg HS PO Last administered on 10/26/18 22:52; Admin Dose 40 MG; Start 10/26/18 at 21:00 Tramadol HCl (Ultram) 50 mg Q6 PRN PO PAIN; Start 10/26/18 at 04:30 Polyethylene Glycol (Miralax) 17 gm DAILY PO Last administered on 10/27/18 08:31; Admin Dose 17 GM; Start 10/26/18 at 09:00 Apixaban (Eliquis) 2.5 mg BID PO Last administered on 10/27/18 08:32; Admin Dose 2.5 MG; Start 10/26/18 at 21:00 Hydralazine HCl (Apresoline) 25 mg Q8 PO Last administered on 10/27/18 13:40; Admin Dose 25 MG; Start 10/26/18 at 15:00 Allopurinol (Zyloprim) 200 mg DAILY PO Last administered on 10/27/18 08:33; Admin Dose 200 MG; Start 10/27/18 at 09:00 Levothyroxine Sodium (Synthroid) 25 mcg DAILY@06 PO ; Start 10/28/18 at 06:00 ABDI SCHWARZ Oct 27, 2018 14:47
--- NOTE | 2018-10-27 15:24 | RADRPT ---
Echocardiogram Report Patient Name: Karen QUIROZ ID: [id number] : 1950 (68y 4m)Study Date: 10/27/2018 9:38:38 AM Gender: FAccession #: [id number] Tech: [facility] [place] Location: [facility] Ref.Physician: ABDI SCHWARZ Height(Cm): 152 BSA: 1.41Weight(Kg): 47.2 Quality: AdequateOrder Physician: ABDI SCHWARZ Account #: Procedures: Echocardiographic Report: Transthoracic echocardiogram with complete 2D, M-Mode, and doppler examination. Indications: Cardiomyopathy. Measurements: 2D/M Mode Doppler Measurement Value Normal Range Measurement Value Normal Range LVIDd 2D 4.9 [ 3.8 - 5.2 ] cm AV Peak Livan 1.7 [ 100.0 - 170.0 ] cm/se c LVIDs 2D 3.1 [ 2.2 - 3.5 ] cm AV Peak PG 11.0 [ 2.0 - 9.0 ] mmHg LVPWd 2D 1.0 [ 0.6 - 0.9 ] cm LVOT Peak Livan 0.6 [ 70.0 - 110.0 ] cm/sec IVSd 2D 1.1 [ 0.6 - 0.9 ] cm LVOT Peak PG 2.0 [ 2.0 - 6.0 ] mmHg AoR Diam 2D 3.9 [ 2.3 - 3.1 ] cm MV E Peak Livan 0.8 [ 60.0 - 130.0 ] cm/sec EF 2D 67.3 [ 54.0 - 74.0 ] percent MV A Peak Livan 0.5 [ 100.0 - 120.0 ] cm/se c LA Dimen 2D 4.4 [ 2.7 - 3.8 ] cm MV E/A 1.6 [ 0.8 - 1.5 ] ratio MV PHT 69.0 [ 20.0 - 100.0 ] msec MV Decel Time 236 [ 104 - 258 ] msec MV Decel Barren 3 Lat E` Livan 0.0 [ 10.0 - 15.0 ] cm/sec Lateral E/E` 22.0 [ 1.0 - 2.0 ] ratio Med E` Livan 0.0 cm/sec MV E/A 1.6 [ 0.8 - 1.5 ] ratio MVA PHT 3.2 [ 2.0 - 4.0 ] cm2 TR Peak Livan 2.0 [ 100.0 - 280.0 ] cm/se c TR Peak PG 16.0 mmHg PV Peak Livan 1.2 [ 40.0 - 80.0 ] cm/sec PV Peak PG 6.0 mmHg RVSP 19.0 [ 10.0 - 36.0 ] mmHg RA Pressure 3.0 mmHg Findings: Left Ventricle: Normal left ventricular cavity size. Mild concentric left ventricular hypertrophy. Mild left ventricular systolic dysfunction. Ejection fraction is visually estimated at 40-45 %. Tissue Doppler/Mitral Doppler indices are most likely consistent with pseudonormalization with mildly elevated left atrial pressure (Stage II diastolic dysfunction), unable to Valsalva. E/E'= 22. These segments of the LV are akinetic inferolateral base segment and inferoseptum base segment. Right Ventricle: Mild right ventricular systolic dysfunction. Severe enlargement of right ventricle. Flattened septum in systole and diastole consistent with increased RV pressure and volume overload. Left Atrium: There is mild enlargement of left atrium. Right Atrium: There is severe enlargement of right atrium. Atrial Septum: Normal atrial septum. Mitral Valve: Normal appearance of the mitral valve. Mitral valve leaflets appear mildly thickened. Trace mitral regurgitation. Aortic Valve: Normal appearance of the aortic valve. Normal trileaflet aortic valve structure. Trace aortic valve regurgitation. Tricuspid Valve: Normal appearance of the tricuspid valve. The estimated Peak RVSP is 19 mmHg. There is moderate to severe tricuspid regurgitation. Pulmonic Valve: Normal pulmonic valve appearance. There is trace to mild pulmonic regurgitation. Pericardium: Normal pericardium with no significant pericardial effusion. Pleural effusion seen. Aorta: Sinus of valsalva is mildly dilated. Sinus of valsalva 3.90 cm. IVC: Dilated IVC without respiratory collapse consistent with elevated right atrial pressure. Pulmonary Artery: Normal pulmonary artery size. Conclusions: Normal left ventricular cavity size. Mild concentric left ventricular hypertrophy. Mild left ventricular systolic dysfunction. Ejection fraction is visually estimated at 40-45 %. Tissue Doppler/Mitral Doppler indices are most likely consistent with pseudonormalization with mildly elevated left atrial pressure (Stage II diastolic dysfunction), unable to Valsalva. E/E'= 22. These segments of the LV are akinetic inferolateral base segment and inferoseptum base segment. Mild right ventricular systolic dysfunction. Severe enlargement of right ventricle. Flattened septum in systole and diastole consistent with increased RV pressure and volume overload. There is mild enlargement of left atrium. There is severe enlargement of right atrium. Normal appearance of the mitral valve. Mitral valve leaflets appear mildly thickened. Trace mitral regurgitation. Normal appearance of the aortic valve. Normal trileaflet aortic valve structure. Trace aortic valve regurgitation. Normal appearance of the tricuspid valve. The estimated Peak RVSP is 19 mmHg. There is moderate to severe tricuspid regurgitation. Normal pulmonic valve appearance. There is trace to mild pulmonic regurgitation. Electronically Signed By: Abdi Schwarz 2018-10-27 15:24:18 PDT
--- NOTE | 2018-10-27 15:30 | RADRPT ---
Vent Rate: 38 bpm RR Interval: 1576 msec FL Interval: [id number] msec QRS Duration: 94 msec QT Interval: 674 msec QTC Interval: 537 msec P-R-T [place]: [id number] - -58 - 107 degrees Junctional rhythm...absent P waves, slow V-rate Left anterior fascicular block...axis(240,-40), init forces inf LVH with secondary repolarization abnormality...multi-LVH criteria, abnrm ST-T Anterior infarct, old...Q >40mS, abnormal ST-T, V2-V5 Prolonged QT interval...QTc >500mS Electronically Signed By: Diego Buchanan
[2018-10-27] MEDS: ATORVASTATIN 40 MG TAB PO SCH (22:15)
[2018-10-28] VITALS (12 sets, daily range): BP systolic 120–128; BP diastolic 56–62; PULSE 31–45; RESP 18–20
[2018-10-28] MEDS: SOD CHLORIDE 0.9% 1,000 ML IV SCH (07:02)
[2018-10-28] MEDS: PANTOPRAZOLE (EC) 40 MG TAB PO SCH (07:03)
[2018-10-28] MEDS: LEVOTHYROXINE 25 MCG TAB PO SCH (07:03)
[2018-10-28] MEDS: POLYETHYLENE GLYCOL 17 GM PACKET PO SCH (08:21)
[2018-10-28] MEDS: APIXABAN 5 MG TABLET PO SCH ×2 (08:21→22:23)
[2018-10-28] MEDS: LOSARTAN 50 MG TAB PO SCH (08:23)
[2018-10-28] MEDS: ASPIRIN 81 MG TAB PO SCH (08:23)
[2018-10-28] MEDS: ALLOPURINOL 100 MG TAB PO SCH (08:23)
[2018-10-28] MEDS: MULTIVITAMINS/MINERALS TAB PO SCH (08:23)
--- NOTE | 2018-10-28 11:27 | PN ---
Date/Time of Note Date/Time of Note DATE: 10/28/18 TIME: 11:20 Assessment/Plan VTE Prophylaxis Risk score (from Ns)>0 risk: 5 SCD applied (from Nsg): Yes Pharmacological prophylaxis: NA/contraindicated Pharm contraindication: low risk/ambulating Lines/Catheters IV Catheter Type (from Nrsg): Peripheral IV Urinary Cath still in place: No Assessment/Plan Assessment/Plan IMPRESSION: # Bradycardia, with of digoxin toxicity and visual disturbances.- slowly decreasing levels of digoxin with ongoing bradycardia s/p digibing # Paroxysmal atrial fibrillation, currently in a likely junctional escape rhythm in the setting of digoxin toxicity, on Eliquis # DOUGLAS on CKD. # Hypertension still # History of cardiomyopathy, decreased left ventricular ejection fraction. # History of coronary artery disease, status post coronary artery bypass graft surgery x4 in 2013. #. Positive troponin in the setting of severe renal dysfunction and severe bradycardia ?ACS #. Dyslipidemia. # hx of small transverse colon polyp, that was removed using the biopsy forceps. # Diverticulosis of the colon. #. Normocytic normochromic anemia more likely due to chronic kidney disease #. Transaminitis 2.2 dig. toxicity vs chronic. Base line is unknown #. Gout # hYpothyroidism Plan - monitor HR ? pacer, - digoxin levels improving - Ns fluids - Straight cath. strict I and o - bun.cr improving - Recheck LFT -c w eliquis - cew losartan/hydralzine - cw levothryroxine Result Diagram: 10/27/1852810/27/18528 Results 24hrs Laboratory Tests Test 10/28/18 07:37 Digoxin Level 3.8 *H Subjective 24 Hr Interval Summary Free Text/Dictation HR still in 30'S No cp/sob Exam/Review of Systems Exam Vitals Vital Signs Date Temp Pulse Resp B/P (MAP) Pulse Ox O2 O2 Flow FiO2 Time Delivery Rate 10/28/18 39 08:38 10/28/18 97.8 20 125/60 97 Nasal 07:26 (81) Cannula 10/26/18 2.0 02:00 Intake and Output 10/27/18 10/27/18 10/28/18 1515:00 23:00 07:00 IntakeIntake Total 350 ml BalanceBalance 350 ml Exam Constitutional: alert, oriented Respiratory: clear to auscultation Cardiovascular: regular rate and rhythm, other (bradycardia) Gastrointestinal: soft Results Results 24hrs Laboratory Tests Test 10/28/18 07:37 Digoxin Level 3.8 *H Medications Medication Current Medications Sodium Chloride 1,000 ml @ 50 mls/hr Q20H IV Last administered on 10/28/18 07:02; Admin Dose 30 MLS/HR; Start 10/26/18 at 04:30 IV Flush (NS 3 ml) 3 ml PER PROTOCOL IV ; Start 10/26/18 at 04:30 Ondansetron HCl (Zofran Inj) 4 mg Q6H PRN IV NAUSEA/VOMITING; Start 10/26/18 at 04:30 Acetaminophen (Tylenol Tab) 650 mg Q6H PRN PO .PAIN 1-3 OR TEMP; Start 10/26/18 at 04:30 Pantoprazole (Protonix Tab) 40 mg DAILY@06 PO Last administered on 10/28/18 07:03; Admin Dose 40 MG; Start 10/26/18 at 06:00 Aspirin (Aspirin) 81 mg DAILY PO Last administered on 10/28/18 08:23; Admin Dose 81 MG; Start 10/26/18 at 09:00 Losartan Potassium (Cozaar) 50 mg DAILY PO Last administered on 10/28/18 08 :23; Admin Dose 50 MG; Start 10/26/18 at 09:00 Multivitamins/ Minerals (Theragran-M) 1 tab DAILY PO Last administered on 10/28/18 08:23; Admin Dose 1 TAB; Start 10/26/18 at 09:00 Atorvastatin Calcium (Lipitor) 40 mg HS PO Last administered on 10/27/18 22:15; Admin Dose 40 MG; Start 10/26/18 at 21:00 Tramadol HCl (Ultram) 50 mg Q6 PRN PO PAIN; Start 10/26/18 at 04:30 Polyethylene Glycol (Miralax) 17 gm DAILY PO Last administered on 10/28/18 08:21; Admin Dose 17 GM; Start 10/26/18 at 09:00 Apixaban (Eliquis) 2.5 mg BID PO Last administered on 10/28/18 08:21; Admin Dose 2.5 MG; Start 10/26/18 at 21:00 Allopurinol (Zyloprim) 200 mg DAILY PO Last administered on 10/28/18 08:23; Admin Dose 200 MG; Start 10/27/18 at 09:00 Levothyroxine Sodium (Synthroid) 25 mcg DAILY@06 PO Last administered on 10/28/18 07:03; Admin Dose 25 MCG; Start 10/28/18 at 06:00 Hydralazine HCl (Apresoline) 50 mg Q8 PO Last administered on 10/28/18 07:03; Admin Dose 50 MG; Start 10/27/18 at 22:00 SHAKIRA GARCIA MD Oct 28, 2018 11:27
--- NOTE | 2018-10-28 12:57 | CONS ---
Assessment/Plan Assessment/Plan Hospital Course (Demo Recall) IMPRESSION: 1. Bradycardia, in the setting of digoxin toxicity with sequelae of that digoxin toxicity and visual disturbances.- slowly decreasing levels of digoxin with ongoing bradycardia but stable to elevated BP 2. Digoxin toxicity-Slowly improving status post Digibind. 3. Paroxysmal atrial fibrillation, currently in a likely junctional escape rhythm in the setting of digoxin toxicity, on Eliquis. 4. Hypertension, uncontrolled still 5. History of cardiomyopathy, decreased left ventricular ejection fraction. 6. History of coronary artery disease, status post coronary artery bypass graft surgery x4 in 2013. 7. Positive troponin in the setting of severe renal dysfunction and severe bradycardia- no sig uptrend 8. Dyslipidemia. 9. Acute on chronic renal failure, being followed by Dr. Dale with ongoing hydration.-continues to slowly improve 10. Hyperkalemia, improved. 11. Increased liver function tests, ongoing. 12. Hypothyroid-elevated TSH nand now started on sythroid Recc: -Tele -serial ecg's -continue eliquis -Contineu to follow rhythm/rate clsoely -continue losartan and hydralazine with well controlled BP -Follow visual disturbance/appetite/GI symptoms closely -started on synthroid Consultation Date/Type/Reason Admit Date/Time Oct 25, 2018 at 23:41 Initial Consult Date 10/26/18 Type of Consult Cardiology Reason for Consultation bradycardia/AF Requesting Provider: RADHA DALE MD Date/Time of Note DATE: 10/28/18 TIME: 12:55 Exam/Review of Systems Vital Signs Vitals Vital Signs Date Temp Pulse Resp B/P (MAP) Pulse Ox O2 O2 Flow FiO2 Time Delivery Rate 10/28/18 35 12:25 10/28/18 97.8 20 123/58 96 Nasal 11:38 (79) Cannula 10/26/18 2.0 02:00 Intake and Output 10/27/18 10/27/18 10/28/18 1515:00 23:00 07:00 IntakeIntake Total 350 ml BalanceBalance 350 ml Exam Exam Review of Systems: CONSTITUTIONAL: No fevers, chills. PULMONARY: No sob CARDIOVASCULAR: No chest pain/palpitations GASTROINTESTINAL: No nausea/vomiting. GENITOURINARY: No hematuria/dysuria. MUSCULOSKELETAL: No myagias/arthalgias. PSYCHIATRIC: The patient denies depression. NEUROLOGIC: No weakness Constitutional: alert, oriented Psych: no complaints ENMT: mucosa pink and moist Neck: supple, jvd (9 cm wter) Respiratory: diminished breath sounds Cardiovascular: other (bradycardic) Gastrointestinal: soft, non-tender Musculoskeletal: muscle weakness (mild generalized) Extremities: edema (none) Labs Result Diagram: 10/27/18 0529 10/28/18 0736 Results 24hrs Laboratory Tests Test 10/28/18 07:36 10/28/18 07:37 Sodium Level 141 Potassium Level 4.3 Chloride Level 112 H Carbon Dioxide Level 21 Anion Gap 8 Blood Urea Nitrogen 62 H Creatinine 2.62 H Est Glomerular Filtrat Rate mL/min 18 L Glucose Level 96 Calcium Level 8.7 Total Bilirubin 0.8 Direct Bilirubin 0.00 # Indirect Bilirubin 0.8 Aspartate Amino Transf (AST/SGOT) 122 H Alanine Aminotransferase (ALT/SGPT) 125 H Alkaline Phosphatase 306 H Total Protein 7.4 Albumin 3.6 Digoxin Level 3.8 *H Medications Medications Current Medications Sodium Chloride 1,000 ml @ 50 mls/hr Q20H IV Last administered on 10/28/18at 0 7:02; Admin Dose 30 MLS/HR; Start 10/26/18 at 04:30 IV Flush (NS 3 ml) 3 ml PER PROTOCOL IV ; Start 10/26/18 at 04:30 Ondansetron HCl (Zofran Inj) 4 mg Q6H PRN IV NAUSEA/VOMITING; Start 10/26/18 at 04:30 Acetaminophen (Tylenol Tab) 650 mg Q6H PRN PO .PAIN 1-3 OR TEMP; Start 10/26/18 at 04:30 Pantoprazole (Protonix Tab) 40 mg DAILY@06 PO Last administered on 10/28/18at 07:03; Admin Dose 40 MG; Start 10/26/18 at 06:00 Aspirin (Aspirin) 81 mg DAILY PO Last administered on 10/28/18at 08:23; Admin Dose 81 MG; Start 10/26/18 at 09:00 Losartan Potassium (Cozaar) 50 mg DAILY PO Last administered on 10/28/18 08:23; Admin Dose 50 MG; Start 10/26/18 at 09:00 Multivitamins/ Minerals (Theragran-M) 1 tab DAILY PO Last administered on 10/28/18at 08:23; Admin Dose 1 TAB; Start 10/26/18 at 09:00 Tramadol HCl (Ultram) 50 mg Q6 PRN PO PAIN; Start 10/26/18 at 04:30 Polyethylene Glycol (Miralax) 17 gm DAILY PO Last administered on 10/28/18 08:21; Admin Dose 17 GM; Start 10/26/18 at 09:00 Apixaban (Eliquis) 2.5 mg BID PO Last administered on 10/28/18 08:21; Admin Dose 2.5 MG; Start 10/26/18 at 21:00 Allopurinol (Zyloprim) 200 mg DAILY PO Last administered on 10/28/18 08:23; Admin Dose 200 MG; Start 10/27/18 at 09:00 Levothyroxine Sodium (Synthroid) 25 mcg DAILY@06 PO Last administered on 10/28/18 07:03; Admin Dose 25 MCG; Start 10/28/18 at 06:00 Hydralazine HCl (Apresoline) 50 mg Q8 PO Last administered on 10/28/18 07:03; Admin Dose 50 MG; Start 10/27/18 at 22:00 ABDI SCHWARZ Oct 28, 2018 12:57
[2018-10-29] VITALS (11 sets, daily range): BP systolic 112–117; BP diastolic 54–58; PULSE 33–46; RESP 16–17
[2018-10-29] MEDS: SOD CHLORIDE 0.9% 1,000 ML IV SCH (00:41)
[2018-10-29] MEDS: PANTOPRAZOLE (EC) 40 MG TAB PO SCH (06:03)
[2018-10-29] MEDS: LEVOTHYROXINE 25 MCG TAB PO SCH (06:03)
[2018-10-29] MEDS: POLYETHYLENE GLYCOL 17 GM PACKET PO SCH (08:40)
[2018-10-29] MEDS: MULTIVITAMINS/MINERALS TAB PO SCH (08:40)
[2018-10-29] MEDS: ASPIRIN 81 MG TAB PO SCH (08:40)
[2018-10-29] MEDS: APIXABAN 5 MG TABLET PO SCH ×2 (08:40→21:53)
[2018-10-29] MEDS: ALLOPURINOL 100 MG TAB PO SCH (08:41)
[2018-10-29] MEDS: LOSARTAN 50 MG TAB PO SCH (08:41)
--- NOTE | 2018-10-29 10:49 | CONS ---
Consult Date/Type/Reason Admit Date/Time Oct 25, 2018 at 23:41 Initial Consult Date Requesting Provider: RADHA DALE MD Date/Time of Note DATE: 10/29/18 TIME: 10:48 Subjective NO acute events - pt comfortable -no pauses noted - feels a little better toady ROS: No fever, no chills, no nausea, no vomiting, no diarrhea/constipation - mild SOB Objective Vitals Vital Signs Date Temp Pulse Resp B/P (MAP) Pulse Ox O2 O2 Flow FiO2 Time Delivery Rate 10/29/18 36 08:32 10/29/18 98.0 16 112/56 98 08:00 (74) 10/28/18 Nasal 15:43 Cannula 10/26/18 2.0 02:00 Intake and Output 10/28/18 10/28/18 10/29/18 1515:00 23:00 07:00 IntakeIntake Total 1200 ml 500 ml OutputOutput Total 500 ml BalanceBalance 700 ml 500 ml Exam General: WN/WD/NAD, AOx 2-3 HEENT: Unicetric/atraumatic/EOMI (follows commands) NECK: JVD elevated, no thyromegaly Lymph: no lymphadenopathy HEART: irregular with no S3, II/ systolic murmur at apex LUNGS: Coarse sounds ABD: soft, NT, ND, +BS : Intact Neuro: non focal SKIN: chronic changes EXT: trace edema Results/Medications Result Diagram: 10/27/18 0529 10/29/18 0633 Results 24 hrs Laboratory Tests Test 10/28/18 11:30 10/29/18 06:33 Urine Color EDGAR Urine Clarity CLOUDY A Urine pH 5.0 Urine Specific [place] 1.016 Urine Ketones NEGATIVE Urine Nitrite NEGATIVE Urine Bilirubin NEGATIVE Urine Urobilinogen 1+ H Urine Leukocyte Esterase NEGATIVE Urine Microscopic RBC 1 Urine Microscopic WBC 3 Urine Squamous Epithelial Cells FEW Urine Amorphous Crystals FEW A Urine Bacteria FEW A Urine Hemoglobin NEGATIVE Urine Glucose NEGATIVE Urine Total Protein 2+ H Sodium Level 138 Potassium Level 4.5 Chloride Level 109 Carbon Dioxide Level 20 L Anion Gap 9 Blood Urea Nitrogen 60 H Creatinine 2.96 H Est Glomerular Filtrat Rate mL/min 16 L Glucose Level 94 Calcium Level 8.5 Phosphorus Level 4.1 Magnesium Level 2.6 H Total Bilirubin 0.7 Direct Bilirubin 0.00 Indirect Bilirubin 0.7 Aspartate Amino Transf (AST/SGOT) 113 H Alanine Aminotransferase (ALT/SGPT) 110 H Alkaline Phosphatase 335 H Total Protein 6.8 Albumin 3.4 Globulin 3.40 H Albumin/Globulin Ratio 1.00 Digoxin Level 3.6 *H Home Meds Reported Medications Tramadol HCl (Tramadol HCl) 50 Mg Tablet, 50 MG PO Q6H PRN for PAIN AND/OR INFLAMMATION, #120 TAB 10/26/18 Apixaban* (Eliquis*) 2.5 Mg Tablet, 2.5 MG PO BID, TAB 10/26/18 Pantoprazole* (Pantoprazole*) 40 Mg Tablet.dr, 40 MG PO AC BREAKFAST, TAB 10/26/18 Amiodarone Hcl* (Amiodarone Hcl*) 200 Mg Tablet, 200 MG PO DAILY, #30 TAB 10/26/18 Furosemide* (Furosemide*) 40 Mg Tablet, 40 MG PO DAILY, TAB 10/26/18 Losartan Potassium* (Losartan Potassium*) 50 Mg Tablet, 50 MG PO DAILY, TAB 10/26/18 Allopurinol* (Allopurinol*) 300 Mg Tablet, 300 MG PO DAILY, TAB 10/26/18 Amlodipine Besylate* (Amlodipine Besylate*) 5 Mg Tablet, 5 MG PO DAILY for 90 Days, #90 10/26/18 Lisinopril* (Lisinopril*) 2.5 Mg Tablet, 2.5 MG PO DAILY for 90 Days, #90 10/26/18 Metoprolol Tartrate* (Lopressor*) 50 Mg Tab, 50 MG PO BID for 90 Days, #180 10/26/18 Atorvastatin* (Atorvastatin*) 40 Mg Tablet, 40 MG PO QHS for 90 Days, #90 10/26/18 Rivaroxaban* (Xarelto*) 20 Mg Tablet, 20 MG PO DAILY for 90 Days, #90 10/26/18 Furosemide* (Furosemide*) 20 Mg Tablet, 20 MG PO DAILY for 90 Days, #90 10/26/18 Aspirin Delayed Release (Aspirin Delayed Release) 81 Mg Tablet.dr, 81 MG PO DAILY for 90 Days, #90 TAKE 1 TABLET BY MOUTH EVERY DAY 10/26/18 Discontinued Reported Medications [Carvedilol] No Conflict Check 10/26/15 [Amlodipine] No Conflict Check 10/26/15 [Clonidine] No Conflict Check 10/26/15 Aspirin (Aspirin Low Dose) 81 Mg Tablet.dr, 81 MG PO DAILY 10/21/13 Medications Current Medications IV Flush (NS 3 ml) 3 ml PER PROTOCOL IV ; Start 10/26/18 at 04:30 Ondansetron HCl (Zofran Inj) 4 mg Q6H PRN IV NAUSEA/VOMITING; Start 10/26/18 at 04:30 Acetaminophen (Tylenol Tab) 650 mg Q6H PRN PO .PAIN 1-3 OR TEMP; Start 10/26/18 at 04:30 Pantoprazole (Protonix Tab) 40 mg DAILY@06 PO Last administered on 10/29/18 06:03; Admin Dose 40 MG; Start 10/26/18 at 06:00 Aspirin (Aspirin) 81 mg DAILY PO Last administered on 10/29/18 08:40; Admin Dose 81 MG; Start 10/26/18 at 09:00 Losartan Potassium (Cozaar) 50 mg DAILY PO Last administered on 10/29/18 08:41; Admin Dose 50 MG; Start 10/26/18 at 09:00 Multivitamins/ Minerals (Theragran-M) 1 tab DAILY PO Last administered on 10/29/18 08:40; Admin Dose 1 TAB; Start 10/26/18 at 09:00 Tramadol HCl (Ultram) 50 mg Q6 PRN PO PAIN; Start 10/26/18 at 04:30 Polyethylene Glycol (Miralax) 17 gm DAILY PO Last administered on 10/29/18 08:40; Admin Dose 17 GM; Start 10/26/18 at 09:00 Apixaban (Eliquis) 2.5 mg BID PO Last administered on 10/29/18 08:40; Admin Dose 2.5 MG; Start 10/26/18 at 21:00 Allopurinol (Zyloprim) 200 mg DAILY PO Last administered on 10/29/18 08:41; Admin Dose 200 MG; Start 10/27/18 at 09:00 Levothyroxine Sodium (Synthroid) 25 mcg DAILY@06 PO Last administered on 10/29/18 06:03; Admin Dose 25 MCG; Start 10/28/18 at 06:00 Hydralazine HCl (Apresoline) 50 mg Q8 PO Last administered on 10/29/18 06:04; Admin Dose 50 MG; Start 10/27/18 at 22:00 Assessment/Plan Hospital Course (Demo Recall) 1. Bradycardia, in the setting of digoxin toxicity with sequelae of that digoxin toxicity and visual disturbances.- slowly decreasing levels of digoxin with ongoing bradycardia but stable to elevated BP - HR better - no indicaton for pacing now 2. Digoxin toxicity-Slowly improving status post Digibind. - improved. 3. Paroxysmal atrial fibrillation, currently in a likely junctional escape rhythm in the setting of digoxin toxicity, on Eliquis. Rate controlled. 4. Hypertension, uncontrolled still 5. History of cardiomyopathy, decreased left ventricular ejection fraction.Gentle diuresis Ok. 6. History of coronary artery disease, status post coronary artery bypass graft surgery x4 in 2013. 7. Positive troponin in the setting of severe renal dysfunction and severe bradycardia- no sig uptrend 8. Dyslipidemia. 9. Acute on chronic renal failure, being followed by Dr. Dale with ongoing hydration.-continues to slowly improve 10. Hyperkalemia, improved. 11. Increased liver function tests, ongoing. 12. Hypothyroid-elevated TSH nand now started on sythroid MICAELA LAROSE MD Oct 29, 2018 10:49
[2018-10-29] MEDS ORDERED: SOD CHLORIDE 0.9% 1,000 ML IV SCH (14:30)
--- NOTE | 2018-10-29 14:30 | PN ---
Date/Time of Note Date/Time of Note DATE: 10/29/18 TIME: 14:24 Assessment/Plan VTE Prophylaxis Risk score (from [facility] [place])>0 risk: 3 SCD applied (from [facility] [place]): No SCD contraindicated: low risk/ambulating Pharmacological prophylaxis: NA/contraindicated Pharm contraindication: low risk/ambulating Lines/Catheters [facility] Per[facility] IV Urinary Cath still in place: No Assessment/Plan Assessment/Plan # Bradycardia, with of digoxin toxicity and visual disturbances.- slowly decreasing levels of digoxin with ongoing bradycardia s/p digibind # Paroxysmal atrial fibrillation, currently in a likely junctional escape rhythm in the setting of digoxin toxicity, on Eliquis # DOUGLAS on CKD. Likely secondary to worsening renal failure due to digitalis toxicity # Hypertension still # History of cardiomyopathy, decreased left ventricular ejection fraction. # History of coronary artery disease, status post coronary artery bypass graft surgery x4 in 2013. #. Positive troponin in the setting of severe renal dysfunction and severe bradycardia ?ACS #. Dyslipidemia. # hx of small transverse colon polyp, that was removed using the biopsy forceps. # Diverticulosis of the colon. #. Normocytic normochromic anemia more likely due to chronic kidney disease #. Transaminitis 2.2 dig. toxicity vs chronic. Base line is unknown #. Gout # hYpothyroidism Plan - monitor HR ? pacer, per cardiology, there is no role of hemodialysis for digital list toxicity as due to large volume of distribution and molecular weight - Ns fluids gentle - Straight cath. strict I and o -Monitor BUNs/creatinine - Recheck LFT -c w eliquis - cew losartan/hydralzine - cw levothryroxine Result Diagram: 10/27/18 0529 10/29/18 0633 Results 24hrs Laboratory Tests Test 10/29/18 06:33 Sodium Level 138 Potassium Level 4.5 Chloride Level 109 Carbon Dioxide Level 20 L Anion Gap 9 Blood Urea Nitrogen 60 H Creatinine 2.96 H Est Glomerular Filtrat Rate mL/min 16 L Glucose Level 94 Calcium Level 8.5 Phosphorus Level 4.1 Magnesium Level 2.6 H Total Bilirubin 0.7 Direct Bilirubin 0.00 Indirect Bilirubin 0.7 Aspartate Amino Transf (AST/SGOT) 113 H Alanine Aminotransferase (ALT/SGPT) 110 H Alkaline Phosphatase 335 H Total Protein 6.8 Albumin 3.4 Globulin 3.40 H Albumin/Globulin Ratio 1.00 Digoxin Level 3.6 *H Subjective 24 Hr Interval Summary Free Text/Dictation Heart rate in late 30s Exam/Review of Systems Exam Vitals Vital Signs Date Temp Pulse Resp B/P (MAP) Pulse Ox O2 O2 Flow FiO2 Time Delivery Rate 10/29/18 36 12:56 10/29/18 98.8 17 117/58 98 11:24 (77) 10/28/18 Nasal 15:43 Cannula 10/26/18 2.0 02:00 Intake and Output 10/28/18 10/28/18 10/29/18 1515:00 23:00 07:00 IntakeIntake Total 1200 ml 500 ml OutputOutput Total 500 ml BalanceBalance 700 ml 500 ml Exam Exam Constitutional: alert, oriented Respiratory: clear to auscultation Cardiovascular: regular rate and rhythm, other (bradycardia) Gastrointestinal: soft Results Results 24hrs Laboratory Tests Test 10/29/18 06:33 Sodium Level 138 Potassium Level 4.5 Chloride Level 109 Carbon Dioxide Level 20 L Anion Gap 9 Blood Urea Nitrogen 60 H Creatinine 2.96 H Est Glomerular Filtrat Rate mL/min 16 L Glucose Level 94 Calcium Level 8.5 Phosphorus Level 4.1 Magnesium Level 2.6 H Total Bilirubin 0.7 Direct Bilirubin 0.00 Indirect Bilirubin 0.7 Aspartate Amino Transf (AST/SGOT) 113 H Alanine Aminotransferase (ALT/SGPT) 110 H Alkaline Phosphatase 335 H Total Protein 6.8 Albumin 3.4 Globulin 3.40 H Albumin/Globulin Ratio 1.00 Digoxin Level 3.6 *H Medications Medication Current Medications IV Flush (NS 3 ml) 3 ml PER PROTOCOL IV ; Start 10/26/18 at 04:30 Ondansetron HCl (Zofran Inj) 4 mg Q6H PRN IV NAUSEA/VOMITING; Start 10/26/18 at 04:30 Acetaminophen (Tylenol Tab) 650 mg Q6H PRN PO .PAIN 1-3 OR TEMP; Start 10/26/18 at 04:30 Pantoprazole (Protonix Tab) 40 mg DAILY@06 PO Last administered on 10/29/18at 06:03; Admin Dose 40 MG; Start 10/26/18 at 06:00 Aspirin (Aspirin) 81 mg DAILY PO Last administered on 10/29/18at 08:40; Admin Dose 81 MG; Start 10/26/18 at 09:00 Losartan Potassium (Cozaar) 50 mg DAILY PO Last administered on 10/29/18 08:41; Admin Dose 50 MG; Start 10/26/18 at 09:00 Multivitamins/ Minerals (Theragran-M) 1 tab DAILY PO Last administered on 10/29/18 08:40; Admin Dose 1 TAB; Start 10/26/18 at 09:00 Tramadol HCl (Ultram) 50 mg Q6 PRN PO PAIN; Start 10/26/18 at 04:30 Polyethylene Glycol (Miralax) 17 gm DAILY PO Last administered on 10/29/18 08:40; Admin Dose 17 GM; Start 10/26/18 at 09:00 Apixaban (Eliquis) 2.5 mg BID PO Last administered on 10/29/18 08:40; Admin Dose 2.5 MG; Start 10/26/18 at 21:00 Allopurinol (Zyloprim) 200 mg DAILY PO Last administered on 10/29/18 08:41; Admin Dose 200 MG; Start 10/27/18 at 09:00 Levothyroxine Sodium (Synthroid) 25 mcg DAILY@06 PO Last administered on 10/29/18 06:03; Admin Dose 25 MCG; Start 10/28/18 at 06:00 Hydralazine HCl (Apresoline) 50 mg Q8 PO Last administered on 10/29/18 06:04; Admin Dose 50 MG; Start 10/27/18 at 22:00 SHAKIRA GARCIA MD Oct 29, 2018 14:30
[2018-10-30] VITALS (15 sets, daily range): BP systolic 112–134; BP diastolic 56–63; PULSE 33–45; RESP 17–20
[2018-10-30] MEDS: PANTOPRAZOLE (EC) 40 MG TAB PO SCH (06:38)
[2018-10-30] MEDS: LEVOTHYROXINE 25 MCG TAB PO SCH (06:39)
[2018-10-30] MEDS: ALLOPURINOL 100 MG TAB PO SCH (09:28)
[2018-10-30] MEDS: ASPIRIN 81 MG TAB PO SCH (09:29)
[2018-10-30] MEDS: POLYETHYLENE GLYCOL 17 GM PACKET PO SCH (09:29)
[2018-10-30] MEDS: MULTIVITAMINS/MINERALS TAB PO SCH (09:29)
[2018-10-30] MEDS: APIXABAN 5 MG TABLET PO SCH ×2 (09:29→21:03)
[2018-10-30] MEDS: LOSARTAN 50 MG TAB PO SCH (09:29)
--- NOTE | 2018-10-30 13:28 | PN ---
Date/Time of Note Date/Time of Note DATE: 10/30/18 TIME: 13:27 Assessment/Plan VTE Prophylaxis Risk score (from [facility])>0 risk: 4 SCD applied (from [facility] [place]): No SCD contraindicated: low risk/ambulating Pharmacological prophylaxis: NA/contraindicated Pharm contraindication: low risk/ambulating Lines/Catheters [facility] Type (from [facility] Peripheral IV Urinary Cath still in place: No Assessment/Plan Assessment/Plan Assessment/Plan Assessment/Plan # Bradycardia, with of digoxin toxicity and visual disturbances.- slowly decreasing levels of digoxin with ongoing bradycardia s/p digibind? Sick sinus # Paroxysmal atrial fibrillation, currently in a likely junctional escape rhythm in the setting of digoxin toxicity, on Eliquis # DOUGLAS on CKD. Likely secondary to worsening renal failure due to digitalis toxicity versus cardiorenal disease baseline creatinine is 1.6, . Had an abdominal ultrasound done that showed no high evidence of hydronephrosis, Cr gotten slightly worse today # Hypertension still # History of cardiomyopathy, decreased left ventricular ejection fraction. # History of coronary artery disease, status post coronary artery bypass graft surgery x4 in 2013. #. Positive troponin in the setting of severe renal dysfunction and severe bradycardia ?ACS #. Dyslipidemia. # hx of small transverse colon polyp, that was removed using the biopsy forceps. # Diverticulosis of the colon. #. Normocytic normochromic anemia more likely due to chronic kidney disease #. Transaminitis 2.2 dig. toxicity vs chronic. Base line is unknown #. Gout # hYpothyroidism Plan - monitor HR ? pacer, per cardiology, there is no role of hemodialysis for digital list toxicity as due to large volume of distribution and molecular weight - Ns fluids gentle -Monitor kidney function currently no indication of hemodialysis -Renally dose all meds -Will decrease hydralazine and DC losartan to increase renal perfusion - Straight cath. strict I and o -c w eliquis - cw levothryroxine Result Diagram: 10/27/18 0529 10/30/18 0637 Results 24hrs Laboratory Tests Test 10/30/18 06:37 Sodium Level 141 Potassium Level 4.8 Chloride Level 110 Carbon Dioxide Level 19 L Anion Gap 12 Blood Urea Nitrogen 67 H Creatinine 3.46 H Est Glomerular Filtrat Rate mL/min 13 L Glucose Level 92 Calcium Level 8.3 L Free Thyroxine 2.50 H Total Triiodothyronine 0.50 L Digoxin Level 3.8 *H Subjective 24 Hr Interval Summary Free Text/Dictation Heart rate in low 30s Exam/Review of Systems Exam Vitals Vital Signs Date Temp Pulse Resp B/P (MAP) Pulse Ox O2 O2 Flow FiO2 Time Delivery Rate 10/30/18 98.2 44 18 113/56 96 Nasal 11:42 (75) Cannula Intake and Output 10/29/18 10/29/18 10/30/18 1515:00 23:00 07:00 IntakeIntake Total 650 ml 860 ml OutputOutput Total 4 ml 3 ml BalanceBalance 646 ml 857 ml Exam Constitutional: alert, oriented Respiratory: clear to auscultation Cardiovascular: regular rate and rhythm, other (bradycardia) Gastrointestinal: soft Results Results Results 24hrs Laboratory Tests Test 10/30/18 06:37 Sodium Level 141 Potassium Level 4.8 Chloride Level 110 Carbon Dioxide Level 19 L Anion Gap 12 Blood Urea Nitrogen 67 H Creatinine 3.46 H Est Glomerular Filtrat Rate mL/min 13 L Glucose Level 92 Calcium Level 8.3 L Free Thyroxine 2.50 H Total Triiodothyronine 0.50 L Digoxin Level 3.8 *H Medications Medication Current Medications IV Flush (NS 3 ml) 3 ml PER PROTOCOL IV ; Start 10/26/18 at 04:30 Ondansetron HCl (Zofran Inj) 4 mg Q6H PRN IV NAUSEA/VOMITING; Start 10/26/18 at 04:30 Acetaminophen (Tylenol Tab) 650 mg Q6H PRN PO .PAIN 1-3 OR TEMP; Start 10/26/18 at 04:30 Pantoprazole (Protonix Tab) 40 mg DAILY@06 PO Last administered on 10/30/18at 06:38; Admin Dose 40 MG; Start 10/26/18 at 06:00 Aspirin (Aspirin) 81 mg DAILY PO Last administered on 10/30/18at 09:29; Admin Dose 81 MG; Start 10/26/18 at 09:00 Losartan Potassium (Cozaar) 50 mg DAILY PO Last administered on 10/30/18at 09:29; Admin Dose 50 MG; Start 10/26/18 at 09:00 Multivitamins/ Minerals (Theragran-M) 1 tab DAILY PO Last administered on 10/30/18at 09:29; Admin Dose 1 TAB; Start 10/26/18 at 09:00 Tramadol HCl (Ultram) 50 mg Q6 PRN PO PAIN; Start 10/26/18 at 04:30 Polyethylene Glycol (Miralax) 17 gm DAILY PO Last administered on 10/30/18 09:29; Admin Dose 17 GM; Start 10/26/18 at 09:00 Apixaban (Eliquis) 2.5 mg BID PO Last administered on 10/30/18 09:29; Admin Dose 2.5 MG; Start 10/26/18 at 21:00 Allopurinol (Zyloprim) 200 mg DAILY PO Last administered on 10/30/18 09:28; Admin Dose 200 MG; Start 10/27/18 at 09:00 Levothyroxine Sodium (Synthroid) 25 mcg DAILY@06 PO Last administered on 10/30/18 06:39; Admin Dose 25 MCG; Start 10/28/18 at 06:00 Hydralazine HCl (Apresoline) 50 mg Q8 PO Last administered on 10/30/18 06:39; Admin Dose 50 MG; Start 10/27/18 at 22:00 Sodium Chloride 1,000 ml @ 30 mls/hr Q24H IV Last administered on 10/29/18 14:47; Admin Dose 30 MLS/HR; Start 10/29/18 at 14:30; Stop 10/30/18 at 14:29 SHAKIRA GARCIA MD Oct 30, 2018 13:28
--- NOTE | 2018-10-30 13:59 | CONS ---
Assessment/Plan Assessment/Plan Hospital Course (Demo Recall) IMPRESSION: 1. Bradycardia, in the setting of digoxin toxicity with sequelae of that digoxin toxicity and visual disturbances.- ongoing moedrate elevation of levels and bradycardia in high 30's 2. Digoxin toxicity-Slowly improving status post Digibind. 3. Paroxysmal atrial fibrillation, currently in a likely junctional escape rhythm in the setting of digoxin toxicity, on Eliquis. 4. Hypertension, uncontrolled still 5. History of cardiomyopathy, decreased left ventricular ejection fraction. 6. History of coronary artery disease, status post coronary artery bypass graft surgery x4 in 2014. 7. Positive troponin in the setting of severe renal dysfunction and severe bradycardia- no sig uptrend 8. Dyslipidemia. 9. Acute on chronic renal failure, being followed by Dr. Dale with ongoing hydration.-continues to slowly improve 10. Hyperkalemia, improved. 11. Increased liver function tests, ongoing. 12. Hypothyroid-elevated TSH nand now started on sythroid Recc: -Tele -serial ecg's -continue eliquis -Contineu to follow rhythm/rate clsoely -consider decrase dose of losartan/hydralazine and follow BP clsoely and worsening renal function clsoely -Visual disturbance/appetite/GI symptoms have improved -started on synthroid -will follow delilah for need of PPM- no indication per following EP Dr cisneros 10/29 Consultation Date/Type/Reason Admit Date/Time Oct 25, 2018 at 23:41 Initial Consult Date 10/26/18 Type of Consult Cardiology Reason for Consultation bradycardia/digoxin toxicity Requesting Provider: RADHA DALE MD Date/Time of Note DATE: 10/30/18 TIME: 13:53 Exam/Review of Systems Vital Signs Vitals Vital Signs Date Temp Pulse Resp B/P (MAP) Pulse Ox O2 O2 Flow FiO2 Time Delivery Rate 10/30/18 37 13:52 10/30/18 98.2 18 113/56 96 Nasal 11:42 (75) Cannula Intake and Output 10/29/18 10/29/18 10/30/18 1515:00 23:00 07:00 IntakeIntake Total 650 ml 860 ml OutputOutput Total 4 ml 3 ml BalanceBalance 646 ml 857 ml Exam Exam Review of Systems: CONSTITUTIONAL: No fevers, chills. PULMONARY: No sob CARDIOVASCULAR: No chest pain/palpitations GASTROINTESTINAL: No nausea/vomiting. GENITOURINARY: No hematuria/dysuria. MUSCULOSKELETAL: No myagias/arthalgias. PSYCHIATRIC: The patient denies depression. NEUROLOGIC: mild generalized weakness Constitutional: alert Psych: no complaints Head: normocephalic ENMT: mucosa pink and moist Neck: supple, jvd (9 cm water) Respiratory: clear to auscultation Cardiovascular: other (bradycardic, regular rhythm) Gastrointestinal: soft, non-tender Musculoskeletal: muscle tone (normal) Extremities: edema (none) Neurological: other (No focakl deficits) Labs Result Diagram: 10/27/18 0529 10/30/18 0637 Results 24hrs Laboratory Tests Test 10/30/18 06:37 Sodium Level 141 Potassium Level 4.8 Chloride Level 110 Carbon Dioxide Level 19 L Anion Gap 12 Blood Urea Nitrogen 67 H Creatinine 3.46 H Est Glomerular Filtrat Rate mL/min 13 L Glucose Level 92 Calcium Level 8.3 L Free Thyroxine 2.50 H Total Triiodothyronine 0.50 L Digoxin Level 3.8 *H Medications Medications Current Medications IV Flush (NS 3 ml) 3 ml PER PROTOCOL IV ; Start 10/26/18 at 04:30 Ondansetron HCl (Zofran Inj) 4 mg Q6H PRN IV NAUSEA/VOMITING; Start 10/26/18 at 04:30 Acetaminophen (Tylenol Tab) 650 mg Q6H PRN PO .PAIN 1-3 OR TEMP; Start 10/26/18 at 04:30 Pantoprazole (Protonix Tab) 40 mg DAILY@06 PO Last administered on 10/30/18at 06:38; Admin Dose 40 MG; Start 10/26/18 at 06:00 Aspirin (Aspirin) 81 mg DAILY PO Last administered on 10/30/18at 09:29; Admin Dose 81 MG; Start 10/26/18 at 09:00 Multivitamins/ Minerals (Theragran-M) 1 tab DAILY PO Last administered on 10/30/18at 09:29; Admin Dose 1 TAB; Start 10/26/18 at 09:00 Tramadol HCl (Ultram) 50 mg Q6 PRN PO PAIN; Start 10/26/18 at 04:30 Polyethylene Glycol (Miralax) 17 gm DAILY PO Last administered on 10/30/18at 09:29; Admin Dose 17 GM; Start 10/26/18 at 09:00 Apixaban (Eliquis) 2.5 mg BID PO Last administered on 10/30/18at 09:29; Admin Dose 2.5 MG; Start 10/26/18 at 21:00 Allopurinol (Zyloprim) 200 mg DAILY PO Last administered on 10/30/18at 09:28; Admin Dose 200 MG; Start 10/27/18 at 09:00 Levothyroxine Sodium (Synthroid) 25 mcg DAILY@06 PO Last administered on 10/30/18at 06:39; Admin Dose 25 MCG; Start 10/28/18 at 06:00 Sodium Chloride 1,000 ml @ 30 mls/hr Q24H IV Last administered on 10/29/18at 14:47; Admin Dose 30 MLS/HR; Start 10/29/18 at 14:30; Stop 10/30/18 at 14:29 Hydralazine HCl (Apresoline) 25 mg Q8 PO ; Start 10/30/18 at 14:00 ABDI SCHWARZ Oct 30, 2018 13:59
[2018-10-31] VITALS (31 sets, daily range): BP systolic 92–159; BP diastolic 41–93; PULSE 31–69; RESP 11–31
[2018-10-31] MEDS: LEVOTHYROXINE 25 MCG TAB PO SCH (05:29)
[2018-10-31] MEDS: PANTOPRAZOLE (EC) 40 MG TAB PO SCH (05:29)
[2018-10-31] MEDS: POLYETHYLENE GLYCOL 17 GM PACKET PO SCH (09:01)
[2018-10-31] MEDS: MULTIVITAMINS/MINERALS TAB PO SCH (09:02)
[2018-10-31] MEDS: ASPIRIN 81 MG TAB PO SCH (09:02)
[2018-10-31] MEDS: APIXABAN 5 MG TABLET PO SCH ×2 (09:02→20:02)
[2018-10-31] MEDS: ALLOPURINOL 100 MG TAB PO SCH (09:02)
--- NOTE | 2018-10-31 15:22 | PN ---
Date/Time of Note Date/Time of Note DATE: 10/31/18 TIME: 15:17 Assessment/Plan VTE Prophylaxis Risk score (from Ns)>0 risk: 1 SCD applied (from Ns): Yes Pharmacological prophylaxis: NA/contraindicated Pharm contraindication: low risk/ambulating Lines/Catheters IV Catheter Type (from [facility]): Saline Lock Urinary Cath still in place: No Assessment/Plan Assessment/Plan Assessment/Plan # Bradycardia, with of digoxin toxicity and visual disturbances.- slowly dec reasing levels of digoxin with ongoing bradycardia s/p digibind? Sick sinus still has elevated dig levels to 3.5 # Paroxysmal atrial fibrillation, currently in a likely junctional escape rhythm in the setting of digoxin toxicity, on Eliquis # DOUGLAS on CKD. Likely secondary to worsening renal failure due to digitalis toxicity versus cardiorenal disease baseline creatinine is 1.6, . Had an abdominal ultrasound done that showed no high evidence of hydronephrosis, Cr gotten slightly worse today # Hypertension # History of cardiomyopathy, decreased left ventricular ejection fraction. # History of coronary artery disease, status post coronary artery bypass graft surgery x4 in 2013. #. Positive troponin in the setting of severe renal dysfunction and severe bradycardia ?ACS #. Dyslipidemia. # hx of small transverse colon polyp, that was removed using the biopsy forceps. # Diverticulosis of the colon. #. Normocytic normochromic anemia more likely due to chronic kidney disease #. Transaminitis 2.2 dig. toxicity vs chronic. Base line is unknown #. Gout # hYpothyroidism Plan -Spoke to cardiology patient has persistent bradycardia will transfer to ICU for dopamine drip to titrate the heart rate greater than 60. She will likely need pacemaker -Has worsening kidney function due to poor forward flow due to decreased renal perfusion, hold off on blood pressure medications - monitor HR ? pacer, per cardiology, there is no role of hemodialysis for digital list toxicity as due to large volume of distribution and molecular weight - Ns fluids - digoxin levels 3.5 - cw ASA/Elquis - Endocrine consult for hypothyroidism -Monitor kidney function currently no indication of hemodialysis -Renally dose all meds - Straight cath. strict I and o -c w eliquis - cw levothryroxine Result Diagram: 10/27/18 0529 10/31/18 0559 Results 24hrs Laboratory Tests Test 10/31/18 05:59 Sodium Level 138 Potassium Level 4.9 Chloride Level 108 Carbon Dioxide Level 19 L Anion Gap 11 Blood Urea Nitrogen 75 H Creatinine 3.92 H Est Glomerular Filtrat Rate mL/min 11 L Glucose Level 95 Calcium Level 8.5 Phosphorus Level 4.5 Magnesium Level 2.7 H Digoxin Level 3.5 *H Subjective 24 Hr Interval Summary Free Text/Dictation Patient is feeling cold. Exam/Review of Systems Exam Vitals Vital Signs Date Temp Pulse Resp B/P (MAP) Pulse Ox O2 O2 Flow FiO2 Time Delivery Rate 10/31/18 37 12:01 10/31/18 98.3 16 109/53 93 11:15 (71) 10/31/18 Nasal 2.0 09:05 Cannula Intake and Output 10/30/18 10/30/18 10/31/18 1515:00 23:00 07:00 IntakeIntake Total 240 ml OutputOutput Total 200 ml BalanceBalance 40 ml Exam onstitutional: alert, oriented, thin frail Respiratory:DEC Breath sounds at the bases Cardiovascular: regular rate and rhythm, other (bradycardia) Gastrointestinal: soft EXT ;no edema Results Results 24hrs Laboratory Tests Test 10/31/18 05:59 Sodium Level 138 Potassium Level 4.9 Chloride Level 108 Carbon Dioxide Level 19 L Anion Gap 11 Blood Urea Nitrogen 75 H Creatinine 3.92 H Est Glomerular Filtrat Rate mL/min 11 L Glucose Level 95 Calcium Level 8.5 Phosphorus Level 4.5 Magnesium Level 2.7 H Digoxin Level 3.5 *H Medications Medication Current Medications IV Flush (NS 3 ml) 3 ml PER PROTOCOL IV ; Start 10/26/18 at 04:30 Ondansetron HCl (Zofran Inj) 4 mg Q6H PRN IV NAUSEA/VOMITING; Start 10/26/18 at 04:30 Acetaminophen (Tylenol Tab) 650 mg Q6H PRN PO .PAIN 1-3 OR TEMP; Start 10/26/18 at 04:30 Pantoprazole (Protonix Tab) 40 mg DAILY@06 PO Last administered on 10/31/18at 05:29; Admin Dose 40 MG; Start 10/26/18 at 06:00 Aspirin (Aspirin) 81 mg DAILY PO Last administered on 10/31/18at 09:02; Admin Dose 81 MG; Start 10/26/18 at 09:00 Multivitamins/ Minerals (Theragran-M) 1 tab DAILY PO Last administered on 10/31/18at 09:02; Admin Dose 1 TAB; Start 10/26/18 at 09:00 Tramadol HCl (Ultram) 50 mg Q6 PRN PO PAIN; Start 10/26/18 at 04:30 Polyethylene Glycol (Miralax) 17 gm DAILY PO Last administered on 10/31/18 09:01; Admin Dose 17 GM; Start 10/26/18 at 09:00 Apixaban (Eliquis) 2.5 mg BID PO Last administered on 10/31/18 09:02; Admin Dose 2.5 MG; Start 10/26/18 at 21:00 Allopurinol (Zyloprim) 200 mg DAILY PO Last administered on 10/31/18 09:02; Admin Dose 200 MG; Start 10/27/18 at 09:00 Levothyroxine Sodium (Synthroid) 25 mcg DAILY@06 PO Last administered on 10/31/18 05:29; Admin Dose 25 MCG; Start 10/28/18 at 06:00 Sodium Chloride 1,000 ml @ 50 mls/hr Q20H IV ; Start 10/31/18 at 15:00 Dopamine HCl/ Dextrose 250 ml @ 8.925 mls/ hr TITRATE IV ; Start 10/31/18 at 15:30 SHAKIRA GARCIA MD Oct 31, 2018 15:22
[2018-10-31] MEDS: SOD CHLORIDE 0.9% 1,000 ML IV SCH (16:08)
[2018-10-31] MEDS: DOPamine-D5W 1.6 MG/ML 250 ML IV SCH ×2 (17:26→19:53)
--- NOTE | 2018-10-31 18:55 | CONS ---
Assessment/Plan Assessment/Plan Problems: (1) Amiodarone-induced thyroiditis Status: Acute Comment: This is classic amiodarone induced hypothyroidism. TSH elevated but so is free T4 while T3 is low. This occurs because in addition to causing thyroiditis, the amiodarone also decreases peripheral conversion of T4 to T3. This leads to ostensible elevation of T4 while total thyroid hormone activity represented by T3 is low. The elevated TSH indicates that this patient likely does have true hypothyroidism, albeit mild. In this age group, it is not necessary to correct an asymptomatic TSH between 4 and 10. However, given the bradycardia, the argument can be made that this patient is DEFINITELY not as ymptomatic. However, I think that even if her bradycardia is multifactorial, at best her hypothyroidism would be considered a minimal contributing factor. Therefore, I agree w/ the initiation of LT4 25 mcg/d as a starting dosage for this patient. I would not, at this time, give her a higher dosage. She should have her thyroid hormone levels rechecked in 6-8 weeks. I do not believe there is any reason to stop the amiodarone in this case. Please reconsult me prn. Consultation Date/Type/Reason Admit Date/Time Oct 25, 2018 at 23:41 Date of Consultation: Oct 31, 2018 Type of Consult Endocrinology Reason for Consultation Abnormal thyroid function studies Requesting Provider: SHAKIRA GARCIA MD Date/Time of Note DATE: 10/31/18 TIME: 18:34 Hx of Present Illness Pt. presented to her PMD w/ blurry vision and lightheadedness. Found to be bradycardic. Labs indicated acute on chronic RF and digoxin level above upper limit of detection. Pt. sent to ER where she received digibind. Primary team checked TSH and found it mildly elevated at 8.7. 3 days ago started LT4 25 mcg/d. Yesterday checked T4/T3 and found to have elevated T4 and low T3. Endo consulted. 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), other (A-fib, gout) Home Meds Reported Medications Tramadol HCl (Tramadol HCl) 50 Mg Tablet, 50 MG PO Q6H PRN for PAIN AND/OR INFLAMMATION, #120 TAB 10/26/18 Apixaban* (Eliquis*) 2.5 Mg Tablet, 2.5 MG PO BID, TAB 10/26/18 Pantoprazole* (Pantoprazole*) 40 Mg Tablet.dr, 40 MG PO AC BREAKFAST, TAB 10/26/18 Amiodarone Hcl* (Amiodarone Hcl*) 200 Mg Tablet, 200 MG PO DAILY, #30 TAB 10/26/18 Furosemide* (Furosemide*) 40 Mg Tablet, 40 MG PO DAILY, TAB 10/26/18 Losartan Potassium* (Losartan Potassium*) 50 Mg Tablet, 50 MG PO DAILY, TAB 10/26/18 Allopurinol* (Allopurinol*) 300 Mg Tablet, 300 MG PO DAILY, TAB 10/26/18 Amlodipine Besylate* (Amlodipine Besylate*) 5 Mg Tablet, 5 MG PO DAILY for 90 Days, #90 10/26/18 Lisinopril* (Lisinopril*) 2.5 Mg Tablet, 2.5 MG PO DAILY for 90 Days, #90 10/26/18 Metoprolol Tartrate* (Lopressor*) 50 Mg Tab, 50 MG PO BID for 90 Days, #180 10/26/18 Atorvastatin* (Atorvastatin*) 40 Mg Tablet, 40 MG PO QHS for 90 Days, #90 10/26/18 Rivaroxaban* (Xarelto*) 20 Mg Tablet, 20 MG PO DAILY for 90 Days, #90 10/26/18 Furosemide* (Furosemide*) 20 Mg Tablet, 20 MG PO DAILY for 90 Days, #90 10/26/18 Aspirin Delayed Release (Aspirin Delayed Release) 81 Mg Tablet.dr, 81 MG PO DAILY for 90 Days, #90 TAKE 1 TABLET BY MOUTH EVERY DAY 10/26/18 Discontinued Reported Medications [Carvedilol] No Conflict Check 10/26/15 [Amlodipine] No Conflict Check 10/26/15 [Clonidine] No Conflict Check 10/26/15 Aspirin (Aspirin Low Dose) 81 Mg Tablet.dr, 81 MG PO DAILY 10/21/13 Medications Current Medications IV Flush (NS 3 ml) 3 ml PER PROTOCOL IV ; Start 10/26/18 at 04:30 Ondansetron HCl (Zofran Inj) 4 mg Q6H PRN IV NAUSEA/VOMITING; Start 10/26/18 at 04:30 Acetaminophen (Tylenol Tab) 650 mg Q6H PRN PO .PAIN 1-3 OR TEMP; Start 10/26/18 at 04:30 Pantoprazole (Protonix Tab) 40 mg DAILY@06 PO Last administered on 10/31/18 05:29; Admin Dose 40 MG; Start 10/26/18 at 06:00 Aspirin (Aspirin) 81 mg DAILY PO Last administered on 10/31/18 09:02; Admin Dose 81 MG; Start 10/26/18 at 09:00 Multivitamins/ Minerals (Theragran-M) 1 tab DAILY PO Last administered on 10/31/18 09:02; Admin Dose 1 TAB; Start 10/26/18 at 09:00 Tramadol HCl (Ultram) 50 mg Q6 PRN PO PAIN; Start 10/26/18 at 04:30 Polyethylene Glycol (Miralax) 17 gm DAILY PO Last administered on 10/31/18 09:01; Admin Dose 17 GM; Start 10/26/18 at 09:00 Apixaban (Eliquis) 2.5 mg BID PO Last administered on 10/31/18 09:02; Admin Dose 2.5 MG; Start 10/26/18 at 21:00 Allopurinol (Zyloprim) 200 mg DAILY PO Last administered on 10/31/18 09:02; Admin Dose 200 MG; Start 10/27/18 at 09:00 Levothyroxine Sodium (Synthroid) 25 mcg DAILY@06 PO Last administered on 10/31/18 05:29; Admin Dose 25 MCG; Start 10/28/18 at 06:00 Sodium Chloride 1,000 ml @ 50 mls/hr Q20H IV Last administered on 10/31/18 16:08; Admin Dose 50 MLS/HR; Start 10/31/18 at 15:00 Dopamine HCl/ Dextrose 250 ml @ 8.925 mls/ hr TITRATE IV Last administered on 10/31/18 17:26; Admin Dose 8.925 MLS/HR; Start 10/31/18 at 15:30 Allergies: Coded Allergies: Penicillins (Unverified Allergy, Mild, 11/23/13) RE-ENTERED UNCODED ALLERGY CODED Past Surgical History Past Surgical Hx: angioplasty, coronary bypass surgery Family History Significant Family History: no pertinent family hx (unknown and pt. unable to give history) Social History b. [place], o/w unknown Alcohol Use: other (unknown) Smoking Status: Never smoker Drug Use: other (unknown) Exam/Review of Systems Exam Vitals VS - Last 72 Hours, by Label Date Temp Pulse Resp B/P (MAP) Pulse Ox O2 O2 Flow FiO2 Time Delivery Rate 10/31/18 36 16:01 10/31/18 97.8 40 16 143/65 98 15:30 (91) 10/31/18 37 12:01 10/31/18 98.3 49 16 109/53 93 11:15 (71) 10/31/18 Nasal 2.0 09:05 Cannula 10/31/18 36 08:01 10/31/18 98.2 40 18 115/50 100 07:10 (71) 10/31/18 97.9 44 18 119/58 95 04:00 (78) 10/31/18 37 04:00 10/31/18 31 01:41 10/31/18 33 01:25 10/31/18 98.1 42 19 140/59 98 00:00 (86) 10/31/18 35 00:00 10/30/18 35 22:23 10/30/18 38 21:11 10/30/18 38 20:00 10/30/18 98.0 45 20 134/63 97 20:00 (86) 10/30/18 39 19:48 10/30/18 40 19:48 10/30/18 41 19:46 10/30/18 36 16:13 10/30/18 98.2 39 20 112/56 98 Nasal 14:00 (74) Cannula 10/30/18 37 13:52 10/30/18 98.2 44 18 113/56 96 Nasal 11:42 (75) Cannula 10/30/18 37 08:19 10/30/18 98.4 38 20 113/58 95 Nasal 07:46 (76) Cannula 10/30/18 33 04:23 10/30/18 98.1 38 17 124/58 96 04:00 (80) 10/30/18 35 01:03 10/30/18 98.0 41 17 121/60 98 00:00 (80) 10/29/18 37 20:26 10/29/18 98.2 38 17 115/57 97 20:00 (76) 10/29/18 35 16:50 10/29/18 98.0 40 17 114/54 99 15:45 (74) 10/29/18 36 12:56 10/29/18 98.8 45 17 117/58 98 11:24 (77) 10/29/18 36 08:32 10/29/18 98.0 46 16 112/56 98 08:00 (74) 10/29/18 34 04:00 10/29/18 97.8 35 17 112/55 99 03:52 (74) 10/29/18 33 00:00 10/28/18 98.1 45 18 122/56 96 23:24 (78) 10/28/18 37 20:02 10/28/18 98.2 40 18 128/58 97 20:00 (81) Vital Signs Date Temp Pulse Resp B/P (MAP) Pulse Ox O2 O2 Flow FiO2 Time Delivery Rate 10/31/18 36 16:01 10/31/18 97.8 16 143/65 98 15:30 (91) 10/31/18 Nasal 2.0 09:05 Cannula Intake and Output 10/30/18 10/30/18 10/31/18 1515:00 23:00 07:00 IntakeIntake Total 240 ml OutputOutput Total 200 ml BalanceBalance 40 ml Constitutional: alert, oriented, well developed Psych: no complaints, nl mood/affect Eyes: nl conjunctiva, EOMI, nl lids, nl sclera, PERRL ENMT: nl external ears & nose, mucosa pink and moist Neck: supple, non-tender; No bruits, No masses, No thyromegaly Respiratory: clear to auscultation, normal air movement Cardiovascular: No regular rate and rhythm (bradycardic w/ HR in 40's), No edema, No murmurs/extra sounds, No rub Gastrointestinal: soft, nl liver, spleen, non-tender, bowel sounds; No mass, No rebound or guarding Musculoskeletal: nl extremities to inspection Extremities: normal pulses; No cyanosis, No clubbing, No edema 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, nl mental status, nl speech, nl strength Results Result Diagram: 10/27/18 0529 10/31/18 0559 Results 24hrs Laboratory Tests Test 10/31/18 05:59 Sodium Level 138 Potassium Level 4.9 Chloride Level 108 Carbon Dioxide Level 19 L Anion Gap 11 Blood Urea Nitrogen 75 H Creatinine 3.92 H Est Glomerular Filtrat Rate mL/min 11 L Glucose Level 95 Calcium Level 8.5 Phosphorus Level 4.5 Magnesium Level 2.7 H Digoxin Level 3.5 *H Medications Medication Current Medications IV Flush (NS 3 ml) 3 ml PER PROTOCOL IV ; Start 10/26/18 at 04:30 Ondansetron HCl (Zofran Inj) 4 mg Q6H PRN IV NAUSEA/VOMITING; Start 10/26/18 at 04:30 Acetaminophen (Tylenol Tab) 650 mg Q6H PRN PO .PAIN 1-3 OR TEMP; Start 10/26/18 at 04:30 Pantoprazole (Protonix Tab) 40 mg DAILY@06 PO Last administered on 10/31/18 05:29; Admin Dose 40 MG; Start 10/26/18 at 06:00 Aspirin (Aspirin) 81 mg DAILY PO Last administered on 10/31/18 09:02; Admin Dose 81 MG; Start 10/26/18 at 09:00 Multivitamins/ Minerals (Theragran-M) 1 tab DAILY PO Last administered on 10/31/18 09:02; Admin Dose 1 TAB; Start 10/26/18 at 09:00 Tramadol HCl (Ultram) 50 mg Q6 PRN PO PAIN; Start 10/26/18 at 04:30 Polyethylene Glycol (Miralax) 17 gm DAILY PO Last administered on 10/31/18at 09:01; Admin Dose 17 GM; Start 10/26/18 at 09:00 Apixaban (Eliquis) 2.5 mg BID PO Last administered on 10/31/18 09:02; Admin Dose 2.5 MG; Start 10/26/18 at 21:00 Allopurinol (Zyloprim) 200 mg DAILY PO Last administered on 10/31/18 09:02; Admin Dose 200 MG; Start 10/27/18 at 09:00 Levothyroxine Sodium (Synthroid) 25 mcg DAILY@06 PO Last administered on 10/31/18 05:29; Admin Dose 25 MCG; Start 10/28/18 at 06:00 Sodium Chloride 1,000 ml @ 50 mls/hr Q20H IV Last administered on 10/31/18 16:08; Admin Dose 50 MLS/HR; Start 10/31/18 at 15:00 Dopamine HCl/ Dextrose 250 ml @ 8.925 mls/ hr TITRATE IV Last administered on 10/31/18at 17:26; Admin Dose 8.925 MLS/HR; Start 10/31/18 at 15:30 KAROLINA RAZO MD Oct 31, 2018 18:44
--- NOTE | 2018-10-31 19:45 | EN ---
Date/Time of Note Date/Time of Note DATE: 10/31/18 TIME: 19:42 ER Progress Note I have been consulted to see the patient for placement of a central line On exam: General: No significant distress Head: Normocephalic, atraumatic. Eyes: Pupils equally reactive, EOM intact ENT: Moist mucous membranes Neck: Supple, no lymphadenopathy Respiratory: Lungs clear bilaterally, no distress Cardiovascular: Bradycardia, no murmurs, rubs, or gallops Abdominal: Soft, non-tender, non-distended, no peritoneal signs : Deferred MSK: Limited movement of all 4 extremities, no bony abnormalities Neurologic: Limited exam, and encephalopathic, limited movement of all 4 extremities Skin: No rash, no significant breakdown Psych: Unable to assess Procedure(s): Central Line Note: Consent: I had a discussion with the patient and family regarding the procedure and discussed risks, benefits, alternatives. They have given verbal informed consent and a document was filled out by the managing physician and placed in the chart Indication: Critically ill patient requiring specialized vascular access for fluid or pressor management Location: Right IJ Indication: Bradycardia Procedure: Sterile procedure was observed throughout insertion of the central line. The insertion site was prepped with sterile solution. Ultrasound-guided identification of the vein was performed. Insertion of a needle into the vein was obtained with return of dark, nonpulsatile blood. The wire was then threaded through the needle without complication. The wire was then identified within the vein using ultrasound. A small skin incision was made, the needle was removed intact, dilation of the vein was performed and insertion of a triple lumen catheter was completed. The catheter was then sutured to the skin. All 3 ports sekou back and flushed without difficulty. A sterile dressing was applied. The patient tolerated the procedure well there were no complications. Emergency Bedside Ultrasound: Indication: Central line Probe Type: Linear Findings: Dynamic ultrasound utilizing compressive technique with both linear and horizontal views, additional images showing wire within the venous system were obtained. The patient tolerated the procedure well and there were no complications. A post-line chest x-ray was ordered as indicated. Chest x-ray: I reviewed and interpreted a 1 view of the chest Mediastinum: No enlargement Cardiac silhouette: cardiomegaly Airspace: Clear lung banks bilaterally without evidence of pneumothorax, triple-lumen catheter in good position Bones: No evidence of fracture Assessment and plan: Patient needs a triple-lumen catheter for symptomatic bradycardia in the setting of dig toxicity. Triple-lumen catheter successfully placed. Further management by primary team. Diagnostic impression: Digoxin toxicity symptomatic bradycardia KULWANT ARREOLA MD Oct 31, 2018 19:45
--- NOTE | 2018-10-31 20:27 | CONS ---
Assessment/Plan Assessment/Plan Hospital Course (Demo Recall) IMPRESSION: 1. Bradycardia, in the setting of digoxin toxicity with sequelae of that digoxin toxicity and visual disturbances.- ongoing moderate elevation of levels and bradycardia in high 30's 2. Digoxin toxicity-Slowly improving status post Digibind. 3. Paroxysmal atrial fibrillation, currently in a likely junctional escape rhythm in the setting of digoxin toxicity, on Eliquis. 4. Hypertension, uncontrolled still 5. History of cardiomyopathy, decreased left ventricular ejection fraction. 6. History of coronary artery disease, status post coronary artery bypass graft surgery x4 in 2014. 7. Positive troponin in the setting of severe renal dysfunction and severe bradycardia- no sig uptrend 8. Dyslipidemia. 9. Acute on chronic renal failure, being followed by Dr. Driscoll with ongoing hydration.-continues to slowly improve 10. Hyperkalemia, improved. 11. Increased liver function tests, ongoing. 12. Hypothyroid-elevated TSH nand now started on synthroid, s/p endocrione con sult Recc: -Now transferred to ICU and started on dopamine in attempt to increase HR and possibly CO to improve renal function -serial ecg's -Will hold eliquis in anticipation of possibly needing procedure for temp pacing wire or PPM -Contineu to follow rhythm/rate closely -follow BP clsoely on dopamine -Visual disturbance/appetite/GI symptoms have improved -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 s/p endocrine consult Consultation Date/Type/Reason Admit Date/Time Oct 25, 2018 at 23:41 Initial Consult Date 10/26/18 Type of Consult Cardiology Reason for Consultation bradycardia Requesting Provider: SHAKIRA GARCIA MD Date/Time of Note DATE: 10/31/18 TIME: 20:21 Exam/Review of Systems Vital Signs Vitals Vital Signs Date Temp Pulse Resp B/P (MAP) Pulse Ox O2 O2 Flow FiO2 Time Delivery Rate 10/31/18 97.9 43 18 147/53 98 Room Air 18:00 (84) 10/31/18 2.0 09:05 Intake and Output 10/30/18 10/30/18 10/31/18 1515:00 23:00 07:00 IntakeIntake Total 240 ml OutputOutput Total 200 ml BalanceBalance 40 ml Exam Exam Review of Systems: CONSTITUTIONAL: No fevers, chills. PULMONARY: No sob CARDIOVASCULAR: No chest pain/palpitations GASTROINTESTINAL: No nausea/vomiting. GENITOURINARY: No hematuria/dysuria. MUSCULOSKELETAL: No myagias/arthalgias. PSYCHIATRIC: The patient denies depression. NEUROLOGIC: No weakness Constitutional: alert Psych: no complaints Head: normocephalic ENMT: mucosa pink and moist Neck: supple, jvd (98 cm water) Respiratory: diminished breath sounds (at bases/B) Cardiovascular: regular rate and rhythm Gastrointestinal: soft, non-tender Musculoskeletal: muscle tone (normal) Extremities: edema (trace/B) Neurological: other (ZNO focal deficits) Labs Result Diagram: 10/27/18 0529 10/31/18 0559 Results 24hrs Laboratory Tests Test 10/31/18 05:59 Sodium Level 138 Potassium Level 4.9 Chloride Level 108 Carbon Dioxide Level 19 L Anion Gap 11 Blood Urea Nitrogen 75 H Creatinine 3.92 H Est Glomerular Filtrat Rate mL/min 11 L Glucose Level 95 Calcium Level 8.5 Phosphorus Level 4.5 Magnesium Level 2.7 H Digoxin Level 3.5 *H Medications Medications Current Medications IV Flush (NS 3 ml) 3 ml PER PROTOCOL IV ; Start 10/26/18 at 04:30 Ondansetron HCl (Zofran Inj) 4 mg Q6H PRN IV NAUSEA/VOMITING; Start 10/26/18 at 04:30 Acetaminophen (Tylenol Tab) 650 mg Q6H PRN PO .PAIN 1-3 OR TEMP; Start 10/26/18 at 04:30 Pantoprazole (Protonix Tab) 40 mg DAILY@06 PO Last administered on 10/31/18at 05:29; Admin Dose 40 MG; Start 10/26/18 at 06:00 Aspirin (Aspirin) 81 mg DAILY PO Last administered on 10/31/18at 09:02; Admin Dose 81 MG; Start 10/26/18 at 09:00 Multivitamins/ Minerals (Theragran-M) 1 tab DAILY PO Last administered on 10/31/18at 09:02; Admin Dose 1 TAB; Start 10/26/18 at 09:00 Tramadol HCl (Ultram) 50 mg Q6 PRN PO PAIN; Start 10/26/18 at 04:30 Polyethylene Glycol (Miralax) 17 gm DAILY PO Last administered on 10/31/18at 09:01; Admin Dose 17 GM; Start 10/26/18 at 09:00 Apixaban (Eliquis) 2.5 mg BID PO Last administered on 10/31/18 20:02; Admin Dose 2.5 MG; Start 10/26/18 at 21:00 Allopurinol (Zyloprim) 200 mg DAILY PO Last administered on 10/31/18 09:02; Admin Dose 200 MG; Start 10/27/18 at 09:00 Levothyroxine Sodium (Synthroid) 25 mcg DAILY@06 PO Last administered on 10/31/18 05:29; Admin Dose 25 MCG; Start 10/28/18 at 06:00 Sodium Chloride 1,000 ml @ 50 mls/hr Q20H IV Last administered on 10/31/18 16:08; Admin Dose 50 MLS/HR; Start 10/31/18 at 15:00 Dopamine HCl/ Dextrose 250 ml @ 8.925 mls/ hr TITRATE IV Last administered on 10/31/18 19:53; Admin Dose 8.925 MLS/HR; Start 10/31/18 at 15:30 ABDI SCHWARZ Oct 31, 2018 20:27
[2018-11-01] VITALS (91 sets, daily range): BP systolic 116–157; BP diastolic 50–126; PULSE 48–69; RESP 9–26
[2018-11-01] MEDS: LEVOTHYROXINE 25 MCG TAB PO SCH (05:04)
[2018-11-01] MEDS: PANTOPRAZOLE (EC) 40 MG TAB PO SCH (05:04)
[2018-11-01] MEDS: ALLOPURINOL 100 MG TAB PO SCH (09:43)
[2018-11-01] MEDS: ASPIRIN 81 MG TAB PO SCH (09:43)
[2018-11-01] MEDS: POLYETHYLENE GLYCOL 17 GM PACKET PO SCH (09:43)
--- NOTE | 2018-11-01 10:47 | PN ---
ARSALAN MAJANO 11/01/18 1047: Date/Time of Note Date/Time of Note DATE: 11/01/18 TIME: 10:45 Assessment/Plan VTE Pro[place]axis [place] [facility] [place]: 4 [place]CD [place] [facility] [place] SCD contraindicated: low risk/ambulating Pharmacological prophylaxis: NA/contraindicated Pharm contraindication: surgical contra Lines/Catheters [facility] Central Line Central line still needed: Yes Urinary Cath still in place: No Assessment/Plan Hospital Course 1. Digoxin toxicity. bradycardia. 2. CHF with elevated BNP. Trop. is also elevated. 3. Hypertension 4. CAD 5. S/p CORONARY ARTERY BYPASS 6. Hyperkalemia, resolved. It might be related to prerenal reasons, bradycardia. 7. DOUGLAS on CKD. Creatinine is improved 8. hx of small transverse colon polyp, that was removed using the biopsy f orceps. 9. Diverticulosis of the colon. 10. Normocytic normochromic anemia more likely due to chronic kidney disease 11. Transaminitis 2.2 dig. toxicity vs chronic. Base line is unknown. Improved 12. Gout 13. Hypothyroidism 14. Prediabetic Assessment/Plan - need pacemaker -Has worsening kidney function due to poor forward flow due to decreased renal perfusion, hold off on blood pressure medications - monitor HR ? - Ns fluids -dopamine drip - digoxin levels 3.5 - cw ASA/Elquis - Endocrine consult for hypothyroidism -Monitor kidney function currently no indication of hemodialysis -Renally dose all meds - lopez - cw levothyroxine. DVT proph. contraindicated due to possible pacemaker placement Result Diagram: 11/01/18 0506 11/01/18 0500 Results 24hrs Laboratory Tests Test 11/01/18 05:00 11/01/18 05:06 Sodium Level 137 Potassium Level 5.0 Chloride Level 107 Carbon Dioxide Level 19 L Anion Gap 11 Blood Urea Nitrogen 76 H Creatinine 3.77 H Est Glomerular Filtrat Rate mL/min 12 L Glucose Level 114 Calcium Level 8.8 Phosphorus Level 4.1 Magnesium Level 2.7 H Digoxin Level 3.5 *H White Blood Count 6.8 # Red Blood Count 3.33 L Hemoglobin 10.2 L Hematocrit 31.7 L Mean Corpuscular Volume 95.2 Mean Corpuscular Hemoglobin 30.6 Mean Corpuscular Hemoglobin Concent 32.2 Red Cell Distribution Width 16.8 H Platelet Count 90 L Mean Platelet Volume 12.5 H Immature Granulocytes % 0.300 Neutrophils % 80.2 H Lymphocytes % 6.9 L Monocytes % 9.6 Eosinophils % 2.6 Basophils % 0.4 Nucleated Red Blood Cells % 0.0 Immature Granulocytes # 0.020 Neutrophils # 5.5 Lymphocytes # 0.5 L Monocytes # 0.7 Eosinophils # 0.2 Basophils # 0.0 Nucleated Red Blood Cells # 0.0 Subjective 24 Hr Interval Summary Constitutional: no complaints Exam/Review of Systems Exam Vitals Vital Signs Date Temp Pulse Resp B/P (MAP) Pulse Ox O2 O2 Flow FiO2 Time Delivery Rate 11/01/18 66 22 144/61 93 Room Air 10:00 (88) 11/01/18 98.7 08:00 10/31/18 2.0 09:05 Intake and Output 10/31/18 10/31/18 11/01/18 1515:00 23:00 07:00 IntakeIntake Total 1008.925 ml 412.475 ml OutputOutput Total 0 ml 300 ml BalanceBalance 1008.925 ml 112.475 ml Constitutional: alert, oriented Head: normocephalic Eyes: nl conjunctiva ENMT: nl external ears & nose Neck: supple Respiratory: diminished breath sounds Cardiovascular: regular rate and rhythm Gastrointestinal: soft Extremities: normal pulses, edema; No calf tenderness, No cyanosis, No clubbing, No pitting pedal edema, No palpable cord, No tenderness, No other Results Result Diagram: 11/01/18 0506 11/01/18 0500 Results 24hrs Laboratory Tests Test 11/01/18 05:00 11/01/18 05:06 Sodium Level 137 Potassium Level 5.0 Chloride Level 107 Carbon Dioxide Level 19 L Anion Gap 11 Blood Urea Nitrogen 76 H Creatinine 3.77 H Est Glomerular Filtrat Rate mL/min 12 L Glucose Level 114 Calcium Level 8.8 Phosphorus Level 4.1 Magnesium Level 2.7 H Digoxin Level 3.5 *H White Blood Count 6.8 # Red Blood Count 3.33 L Hemoglobin 10.2 L Hematocrit 31.7 L Mean Corpuscular Volume 95.2 Mean Corpuscular Hemoglobin 30.6 Mean Corpuscular Hemoglobin Concent 32.2 Red Cell Distribution Width 16.8 H Platelet Count 90 L Mean Platelet Volume 12.5 H Immature Granulocytes % 0.300 Neutrophils % 80.2 H Lymphocytes % 6.9 L Monocytes % 9.6 Eosinophils % 2.6 Basophils % 0.4 Nucleated Red Blood Cells % 0.0 Immature Granulocytes # 0.020 Neutrophils # 5.5 Lymphocytes # 0.5 L Monocytes # 0.7 Eosinophils # 0.2 Basophils # 0.0 Nucleated Red Blood Cells # 0.0 Medications Medication Current Medications IV Flush (NS 3 ml) 3 ml PER PROTOCOL IV ; Start 10/26/18 at 04:30 Ondansetron HCl (Zofran Inj) 4 mg Q6H PRN IV NAUSEA/VOMITING; Start 10/26/18 at 04:30 Acetaminophen (Tylenol Tab) 650 mg Q6H PRN PO .PAIN 1-3 OR TEMP; Start 10/26/18 at 04:30 Pantoprazole (Protonix Tab) 40 mg DAILY@06 PO Last administered on 11/01/18at 0 5:04; Admin Dose 40 MG; Start 10/26/18 at 06:00 Aspirin (Aspirin) 81 mg DAILY PO Last administered on 11/01/18at 09:43; Admin Dose 81 MG; Start 10/26/18 at 09:00 Multivitamins/ Minerals (Theragran-M) 1 tab DAILY PO Last administered on 10/31/18at 09:02; Admin Dose 1 TAB; Start 10/26/18 at 09:00 Tramadol HCl (Ultram) 50 mg Q6 PRN PO PAIN; Start 10/26/18 at 04:30 Polyethylene Glycol (Miralax) 17 gm DAILY PO Last administered on 11/01/18at 09:43; Admin Dose 17 GM; Start 10/26/18 at 09:00 Apixaban (Eliquis) 2.5 mg BID PO Last administered on 10/31/18at 20:02; Admin Dose 2.5 MG; Start 10/26/18 at 21:00; Status Hold Allopurinol (Zyloprim) 200 mg DAILY PO Last administered on 11/01/18 09:43; Admin Dose 200 MG; Start 10/27/18 at 09:00 Levothyroxine Sodium (Synthroid) 25 mcg DAILY@06 PO Last administered on 11/01/18at 05:04; Admin Dose 25 MCG; Start 10/28/18 at 06:00 Sodium Chloride 1,000 ml @ 50 mls/hr Q20H IV Last administered on 10/31/18at 16:08; Admin Dose 50 MLS/HR; Start 10/31/18 at 15:00 Dopamine HCl/ Dextrose 250 ml @ 8.925 mls/ hr TITRATE IV Last administered on 10/31/18at 19:53; Admin Dose 8.925 MLS/HR; Start 10/31/18 at 15:30 Hydralazine HCl (Apresoline) 10 mg Q4H PRN IV ELEVATED BLOOD PRESSURE; Start 10/31/18 at 20:30 SHAKIRA GARCIA MD 11/01/18 1625: Assessment/Plan Assessment/Plan Assessment/Plan 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
[2018-11-01] MEDS: MULTIVITAMINS/MINERALS TAB PO SCH (12:05)
[2018-11-01] MEDS: SOD CHLORIDE 0.9% 1,000 ML IV SCH (12:06)
--- NOTE | 2018-11-01 12:50 | CONS ---
Assessment/Plan Assessment/Plan Hospital Course (Demo Recall) IMPRESSION: 1. Bradycardia, in the setting of digoxin toxicity with sequelae of that digoxin toxicity and visual disturbances.- ongoing moderate elevation of levels and bradycardia in high 30's 2. Digoxin toxicity-Slowly improving status post Digibind. 3. Paroxysmal atrial fibrillation, currently in a likely junctional escape rhythm in the setting of digoxin toxicity, on Eliquis. 4. Hypertension, uncontrolled still 5. History of cardiomyopathy, decreased left ventricular ejection fraction. 6. History of coronary artery disease, status post coronary artery bypass graft surgery x4 in 2014. 7. Positive troponin in the setting of severe renal dysfunction and severe bradycardia- no sig uptrend 8. Dyslipidemia. 9. Acute on chronic renal failure, being followed by Dr. Driscoll/Kendy with ongoing hydration.-some mild improvement today on dopamine 10. Hyperkalemia, improved. 11. Increased liver function tests, ongoing. 12. Hypothyroid-elevated TSH nand now started on synthroid, s/p endocrione consult Recc: -Now transferred to ICU and started on dopamine in attempt to increase HR and possibly CO to improve renal function with positive response at this tie to low dose dopamine -serial ecg's -Will hold eliquis in anticipation of possibly needing procedure for temp pacing wire or PPM and will speak to EP, Dr cisneros about possibility/necessity of PPM implantation if remains bradycardic off of dopamine -Contineu to follow rhythm/rate closely in ICU on dopomine -follow BP clsoely on dopamine -Visual disturbance/appetite/GI symptoms have improved -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 s/p endocrine consult Consultation Date/Type/Reason Admit Date/Time Oct 25, 2018 at 23:41 Initial Consult Date 10/26/18 Type of Consult Cardiology Reason for Consultation bradycardia Requesting Provider: SHAKIRA GARCIA MD Date/Time of Note DATE: 11/01/18 TIME: 12:45 Exam/Review of Systems Vital Signs Vitals Vital Signs Date Temp Pulse Resp B/P (MAP) Pulse Ox O2 O2 Flow FiO2 Time Delivery Rate 11/01/18 98.4 65 21 134/57 94 Room Air 12:00 (82) 10/31/18 2.0 09:05 Intake and Output 10/31/18 10/31/18 11/01/18 1515:00 23:00 07:00 IntakeIntake Total 1008.925 ml 412.475 ml OutputOutput Total 0 ml 300 ml BalanceBalance 1008.925 ml 112.475 ml Exam Exam Review of Systems: CONSTITUTIONAL: No fevers, chills. PULMONARY: No sob CARDIOVASCULAR: No chest pain/palpitations GASTROINTESTINAL: No nausea/vomiting. GENITOURINARY: No hematuria/dysuria. MUSCULOSKELETAL: No myagias/arthalgias. PSYCHIATRIC: The patient denies depression. NEUROLOGIC: No weakness Constitutional: alert Psych: no complaints Head: normocephalic ENMT: mucosa pink and moist Neck: supple, jvd (9 cm water) Respiratory: diminished breath sounds (at bases/B) Cardiovascular: regular rate and rhythm Gastrointestinal: soft, non-tender Musculoskeletal: muscle tone (normal) Extremities: edema (none) Neurological: other (No focal focal deficits) Labs Result Diagram: 11/01/18 0506 11/01/18 0500 Results 24hrs Laboratory Tests Test 11/01/18 05:00 11/01/18 05:06 Sodium Level 137 Potassium Level 5.0 Chloride Level 107 Carbon Dioxide Level 19 L Anion Gap 11 Blood Urea Nitrogen 76 H Creatinine 3.77 H Est Glomerular Filtrat Rate mL/min 12 L Glucose Level 114 Calcium Level 8.8 Phosphorus Level 4.1 Magnesium Level 2.7 H Digoxin Level 3.5 *H White Blood Count 6.8 # Red Blood Count 3.33 L Hemoglobin 10.2 L Hematocrit 31.7 L Mean Corpuscular Volume 95.2 Mean Corpuscular Hemoglobin 30.6 Mean Corpuscular Hemoglobin Concent 32.2 Red Cell Distribution Width 16.8 H Platelet Count 90 L Mean Platelet Volume 12.5 H Immature Granulocytes % 0.300 Neutrophils % 80.2 H Lymphocytes % 6.9 L Monocytes % 9.6 Eosinophils % 2.6 Basophils % 0.4 Nucleated Red Blood Cells % 0.0 Immature Granulocytes # 0.020 Neutrophils # 5.5 Lymphocytes # 0.5 L Monocytes # 0.7 Eosinophils # 0.2 Basophils # 0.0 Nucleated Red Blood Cells # 0.0 Medications Medications Current Medications IV Flush (NS 3 ml) 3 ml PER PROTOCOL IV ; Start 10/26/18 at 04:30 Ondansetron HCl (Zofran Inj) 4 mg Q6H PRN IV NAUSEA/VOMITING; Start 10/26/18 at 04:30 Acetaminophen (Tylenol Tab) 650 mg Q6H PRN PO .PAIN 1-3 OR TEMP; Start 10/26/18 at 04:30 Pantoprazole (Protonix Tab) 40 mg DAILY@06 PO Last administered on 11/01/18 05:04; Admin Dose 40 MG; Start 10/26/18 at 06:00 Aspirin (Aspirin) 81 mg DAILY PO Last administered on 11/01/18 09:43; Admin Dose 81 MG; Start 10/26/18 at 09:00 Multivitamins/ Minerals (Theragran-M) 1 tab DAILY PO Last administered on 11/01/18 12:05; Admin Dose 1 TAB; Start 10/26/18 at 09:00 Tramadol HCl (Ultram) 50 mg Q6 PRN PO PAIN; Start 10/26/18 at 04:30 Polyethylene Glycol (Miralax) 17 gm DAILY PO Last administered on 11/01/18 09:43; Admin Dose 17 GM; Start 10/26/18 at 09:00 Apixaban (Eliquis) 2.5 mg BID PO Last administered on 10/31/18 20:02; Admin Dose 2.5 MG; Start 10/26/18 at 21:00; Status Hold Allopurinol (Zyloprim) 200 mg DAILY PO Last administered on 11/01/18 09:43; Admin Dose 200 MG; Start 10/27/18 at 09:00 Levothyroxine Sodium (Synthroid) 25 mcg DAILY@06 PO Last administered on 11/01/18 05:04; Admin Dose 25 MCG; Start 10/28/18 at 06:00 Sodium Chloride 1,000 ml @ 50 mls/hr Q20H IV Last administered on 11/01/18 12:06; Admin Dose 50 MLS/HR; Start 10/31/18 at 15:00 Dopamine HCl/ Dextrose 250 ml @ 8.925 mls/ hr TITRATE IV Last administered on 10/31/18 19:53; Admin Dose 8.925 MLS/HR; Start 10/31/18 at 15:30 Hydralazine HCl (Apresoline) 10 mg Q4H PRN IV ELEVATED BLOOD PRESSURE; Start 10/31/18 at 20:30 ABDI SCHWARZ Nov 01, 2018 12:50
[2018-11-01] MEDS: ONDANSETRON 4 MG INJ IV PRN (19:36)
[2018-11-01] MEDS: DOPamine-D5W 1.6 MG/ML 250 ML IV SCH (22:46)
[2018-11-02] VITALS (91 sets, daily range): BP systolic 102–162; BP diastolic 43–80; PULSE 47–62; RESP 10–25
[2018-11-02] MEDS: hydrALAzine 20 MG INJ IV PRN ×2 (02:41→17:35)
[2018-11-02] MEDS: SOD CHLORIDE 0.9% 1,000 ML IV SCH ×2 (05:01→23:24)
[2018-11-02] MEDS: PANTOPRAZOLE (EC) 40 MG TAB PO SCH (05:58)
[2018-11-02] MEDS: LEVOTHYROXINE 25 MCG TAB PO SCH (05:58)
--- NOTE | 2018-11-02 08:34 | PN ---
Date/Time of Note Date/Time of Note DATE: 11/02/18 TIME: 08:33 Assessment/Plan VTE Prophylaxis Risk score (from [facility] [place]0 risk: 6 SCD applied (from [facility] [place]): Yes Pharmacological prophylaxis: apixaban Lines/Catheters IV Catheter Type (from [facility]): Central Line Central line still needed: Yes Urinary Cath still in place: Yes Reason Cath still needed: urinary retention Assessment/Plan Hospital Course 1. Digoxin toxicity. bradycardia. 2. CHF with elevated BNP. Trop. is also elevated. 3. Hypertension 4. CAD 5. S/p CORONARY ARTERY BYPASS 6. Hyperkalemia, resolved. It might be related to prerenal reasons, bradycardia. 7. DOUGLAS on CKD. Creatinine is improved 8. hx of small transverse colon polyp, that was removed using the biopsy forceps. 9. Diverticulosis of the colon. 10. Normocytic normochromic anemia more likely due to chronic kidney disease 11. Transaminitis 2.2 dig. toxicity vs chronic. Base line is unknown. Improved 12. Gout 13. Hypothyroidism 14. Prediabetic Assessment/Plan - need pacemaker -Has worsening kidney function due to poor forward flow due to decreased renal perfusion - monitor HR ? - c/w Ns fluids -on dopamine drip - digoxin levels 2.9 - cw ASA/Elquis - Endocrine consult for hypothyroidism -Monitor kidney function currently no indication of hemodialysis -Renally dose all meds - c/w lopez - cw levothyroxine. -DVT proph. contraindicated due to possible pacemaker placement Result Diagram: 11/02/18 0400 11/02/18 0400 Results 24hrs Laboratory Tests Test 11/02/18 04:00 White Blood Count 6.4 Red Blood Count 3.50 L Hemoglobin 10.7 L Hematocrit 33.1 L Mean Corpuscular Volume 94.6 Mean Corpuscular Hemoglobin 30.6 Mean Corpuscular Hemoglobin Concent 32.3 Red Cell Distribution Width 17.4 H Platelet Count 113 #L Mean Platelet Volume 13.1 H Immature Granulocytes % 0.300 Neutrophils % 71.9 Lymphocytes % 14.8 L Monocytes % 7.5 Eosinophils % 4.6 Basophils % 0.9 Nucleated Red Blood Cells % 0.0 Immature Granulocytes # 0.020 Neutrophils # 4.6 Lymphocytes # 0.9 Monocytes # 0.5 Eosinophils # 0.3 Basophils # 0.1 Nucleated Red Blood Cells # 0.0 Sodium Level 136 Potassium Level 4.9 Chloride Level 108 Carbon Dioxide Level 18 L Anion Gap 10 Blood Urea Nitrogen 72 H Creatinine 3.36 H Est Glomerular Filtrat Rate mL/min 14 L Glucose Level 140 Calcium Level 8.7 Digoxin Level 2.9 *H Subjective 24 Hr Interval Summary Constitutional: improved Exam/Review of Systems Exam Vitals Vital Signs Date Temp Pulse Resp B/P (MAP) Pulse Ox O2 O2 Flow FiO2 Time Delivery Rate 11/02/18 51 11 135/49 90 06:15 (77) 11/02/18 98.4 04:28 11/01/18 Room Air 16:00 10/31/18 2.0 09:05 Intake and Output 11/01/18 11/01/18 11/02/18 1515:00 23:00 07:00 IntakeIntake Total 1070.319 ml 677.482 ml 1367 ml OutputOutput Total 765 ml 320 ml 225 ml BalanceBalance 305.319 ml 357.482 ml 1142 ml Constitutional: alert, oriented Neck: supple Respiratory: clear to auscultation Cardiovascular: regular rate and rhythm Gastrointestinal: soft Genitourinary - Female: other (lopez) Results Results 24hrs Laboratory Tests Test 11/02/18 04:00 White Blood Count 6.4 Red Blood Count 3.50 L Hemoglobin 10.7 L Hematocrit 33.1 L Mean Corpuscular Volume 94.6 Mean Corpuscular Hemoglobin 30.6 Mean Corpuscular Hemoglobin Concent 32.3 Red Cell Distribution Width 17.4 H Platelet Count 113 #L Mean Platelet Volume 13.1 H Immature Granulocytes % 0.300 Neutrophils % 71.9 Lymphocytes % 14.8 L Monocytes % 7.5 Eosinophils % 4.6 Basophils % 0.9 Nucleated Red Blood Cells % 0.0 Immature Granulocytes # 0.020 Neutrophils # 4.6 Lymphocytes # 0.9 Monocytes # 0.5 Eosinophils # 0.3 Basophils # 0.1 Nucleated Red Blood Cells # 0.0 Sodium Level 136 Potassium Level 4.9 Chloride Level 108 Carbon Dioxide Level 18 L Anion Gap 10 Blood Urea Nitrogen 72 H Creatinine 3.36 H Est Glomerular Filtrat Rate mL/min 14 L Glucose Level 140 Calcium Level 8.7 Digoxin Level 2.9 *H Medications Medication Current Medications IV Flush (NS 3 ml) 3 ml PER PROTOCOL IV ; Start 10/26/18 at 04:30 Ondansetron HCl (Zofran Inj) 4 mg Q6H PRN IV NAUSEA/VOMITING Last administered on 11/01/18 19:36; Admin Dose 4 MG; Start 10/26/18 at 04:30 Acetaminophen (Tylenol Tab) 650 mg Q6H PRN PO .PAIN 1-3 OR TEMP; Start 10/26/18 at 04:30 Pantoprazole (Protonix Tab) 40 mg DAILY@06 PO Last administered on 11/02/18 05:58; Admin Dose 40 MG; Start 10/26/18 at 06:00 Aspirin (Aspirin) 81 mg DAILY PO Last administered on 11/01/18 09:43; Admin Dose 81 MG; Start 10/26/18 at 09:00 Multivitamins/ Minerals (Theragran-M) 1 tab DAILY PO Last administered on 11/01/18 12:05; Admin Dose 1 TAB; Start 10/26/18 at 09:00 Tramadol HCl (Ultram) 50 mg Q6 PRN PO PAIN; Start 10/26/18 at 04:30 Polyethylene Glycol (Miralax) 17 gm DAILY PO Last administered on 11/01/18 09:43; Admin Dose 17 GM; Start 10/26/18 at 09:00 Apixaban (Eliquis) 2.5 mg BID PO Last administered on 10/31/18 20:02; Admin Dose 2.5 MG; Start 10/26/18 at 21:00; Status Hold Allopurinol (Zyloprim) 200 mg DAILY PO Last administered on 11/01/18 09:43; Admin Dose 200 MG; Start 10/27/18 at 09:00 Levothyroxine Sodium (Synthroid) 25 mcg DAILY@06 PO Last administered on 11/02/18 05:58; Admin Dose 25 MCG; Start 10/28/18 at 06:00 Sodium Chloride 1,000 ml @ 50 mls/hr Q20H IV Last administered on 11/02/18 05:01; Admin Dose 50 MLS/HR; Start 10/31/18 at 15:00 Dopamine HCl/ Dextrose 250 ml @ 8.925 mls/ hr TITRATE IV Last administered on 11/01/18 22:46; Admin Dose 10.71 MLS/HR; Start 10/31/18 at 15:30 Hydralazine HCl (Apresoline) 10 mg Q4H PRN IV ELEVATED BLOOD PRESSURE Last administered on 11/02/18at 02:41; Admin Dose 10 MG; Start 10/31/18 at 20:30 ARSALAN MAJANO Nov 02, 2018 08:34
[2018-11-02] MEDS: POLYETHYLENE GLYCOL 17 GM PACKET PO SCH (09:00)
[2018-11-02] MEDS: MULTIVITAMINS/MINERALS TAB PO SCH (10:48)
[2018-11-02] MEDS: ASPIRIN 81 MG TAB PO SCH (10:48)
[2018-11-02] MEDS: ALLOPURINOL 100 MG TAB PO SCH (10:49)
[2018-11-02] MEDS: DOPamine-D5W 1.6 MG/ML 250 ML IV SCH ×2 (12:39→23:22)
--- NOTE | 2018-11-02 13:20 | CONS ---
Assessment/Plan Assessment/Plan Assessment/Plan (Daily) Bradycardia with junctional rhythm sec to digoxin toxicity Paroxysmal atrial fibrillation Hypertension Cardiomyopathy Coronary artery disease, status post coronary artery bypass graft surgery x4 in 2014. Dyslipidemia. Acute on chronic renal failure, Hypothyroidism Continue Dopamine Started Hydralazine Continue Eliquis Avoid Nephrotoxin Avoid JC-1/ARBs Avoid AV Amy Blockers Consultation Date/Type/Reason Admit Date/Time Oct 25, 2018 at 23:41 Type of Consult Cardiology Date/Time of Note DATE: 11/02/18 TIME: 13:16 Past Medical History Home Meds Reported Medications Tramadol HCl (Tramadol HCl) 50 Mg Tablet, 50 MG PO Q6H PRN for PAIN AND/OR INFLAMMATION, #120 TAB 10/26/18 Apixaban* (Eliquis*) 2.5 Mg Tablet, 2.5 MG PO BID, TAB 10/26/18 Pantoprazole* (Pantoprazole*) 40 Mg Tablet.dr, 40 MG PO AC BREAKFAST, TAB 10/26/18 Amiodarone Hcl* (Amiodarone Hcl*) 200 Mg Tablet, 200 MG PO DAILY, #30 TAB 10/26/18 Furosemide* (Furosemide*) 40 Mg Tablet, 40 MG PO DAILY, TAB 10/26/18 Losartan Potassium* (Losartan Potassium*) 50 Mg Tablet, 50 MG PO DAILY, TAB 10/26/18 Allopurinol* (Allopurinol*) 300 Mg Tablet, 300 MG PO DAILY, TAB 10/26/18 Amlodipine Besylate* (Amlodipine Besylate*) 5 Mg Tablet, 5 MG PO DAILY for 90 Days, #90 10/26/18 Lisinopril* (Lisinopril*) 2.5 Mg Tablet, 2.5 MG PO DAILY for 90 Days, #90 10/26/18 Metoprolol Tartrate* (Lopressor*) 50 Mg Tab, 50 MG PO BID for 90 Days, #180 10/26/18 Atorvastatin* (Atorvastatin*) 40 Mg Tablet, 40 MG PO QHS for 90 Days, #90 10/26/18 Rivaroxaban* (Xarelto*) 20 Mg Tablet, 20 MG PO DAILY for 90 Days, #90 10/26/18 Furosemide* (Furosemide*) 20 Mg Tablet, 20 MG PO DAILY for 90 Days, #90 10/26/18 Aspirin Delayed Release (Aspirin Delayed Release) 81 Mg Tablet.dr, 81 MG PO DAILY for 90 Days, #90 TAKE 1 TABLET BY MOUTH EVERY DAY 10/26/18 Discontinued Reported Medications [Carvedilol] No Conflict Check 10/26/15 [Amlodipine] No Conflict Check 10/26/15 [Clonidine] No Conflict Check 10/26/15 Aspirin (Aspirin Low Dose) 81 Mg Tablet.dr, 81 MG PO DAILY 10/21/13 Medications Current Medications IV Flush (NS 3 ml) 3 ml PER PROTOCOL IV ; Start 10/26/18 at 04:30 Ondansetron HCl (Zofran Inj) 4 mg Q6H PRN IV NAUSEA/VOMITING Last administered on 11/01/18 19:36; Admin Dose 4 MG; Start 10/26/18 at 04:30 Acetaminophen (Tylenol Tab) 650 mg Q6H PRN PO .PAIN 1-3 OR TEMP; Start 10/26/18 at 04:30 Pantoprazole (Protonix Tab) 40 mg DAILY@06 PO Last administered on 11/02/18 05:58; Admin Dose 40 MG; Start 10/26/18 at 06:00 Aspirin (Aspirin) 81 mg DAILY PO Last administered on 11/02/18 10:48; Admin Dose 81 MG; Start 10/26/18 at 09:00 Multivitamins/ Minerals (Theragran-M) 1 tab DAILY PO Last administered on 11/02/18 10:48; Admin Dose 1 TAB; Start 10/26/18 at 09:00 Tramadol HCl (Ultram) 50 mg Q6 PRN PO PAIN; Start 10/26/18 at 04:30 Polyethylene Glycol (Miralax) 17 gm DAILY PO Last administered on 11/01/18 09:43; Admin Dose 17 GM; Start 10/26/18 at 09:00 Apixaban (Eliquis) 2.5 mg BID PO Last administered on 10/31/18 20:02; Admin Dose 2.5 MG; Start 10/26/18 at 21:00; Status Hold Allopurinol (Zyloprim) 200 mg DAILY PO Last administered on 11/02/18 10:49; Admin Dose 200 MG; Start 10/27/18 at 09:00 Levothyroxine Sodium (Synthroid) 25 mcg DAILY@06 PO Last administered on 11/02/18 05:58; Admin Dose 25 MCG; Start 10/28/18 at 06:00 Sodium Chloride 1,000 ml @ 50 mls/hr Q20H IV Last administered on 11/02/18at 05:01; Admin Dose 50 MLS/HR; Start 10/31/18 at 15:00 Dopamine HCl/ Dextrose 250 ml @ 8.925 mls/ hr TITRATE IV Last administered on 11/02/18at 12:39; Admin Dose 17.85 MLS/HR; Start 10/31/18 at 15:30 Hydralazine HCl (Apresoline) 10 mg Q4H PRN IV ELEVATED BLOOD PRESSURE Last administered on 11/02/18at 02:41; Admin Dose 10 MG; Start 10/31/18 at 20:30 Allergies: Coded Allergies: Penicillins (Unverified Allergy, Mild, 11/23/13) RE-ENTERED UNCODED ALLERGY CODED Past Surgical History Past Surgical Hx: angioplasty, coronary bypass surgery Social History Alcohol Use: other (unknown) Smoking Status: Never smoker Drug Use: other (unknown) Exam/Review of Systems Vital Signs Vitals Vital Signs Date Temp Pulse Resp B/P (MAP) Pulse Ox O2 O2 Flow FiO2 Time Delivery Rate 11/02/18 62 20 142/63 97 10:45 (89) 11/02/18 97.9 Room Air 08:00 10/31/18 2.0 09:05 Intake and Output 11/01/18 11/01/18 11/02/18 1515:00 23:00 07:00 IntakeIntake Total 1070.319 ml 677.482 ml 1367 ml OutputOutput Total 765 ml 320 ml 225 ml BalanceBalance 305.319 ml 357.482 ml 1142 ml Exam Constitutional: alert, oriented Head: normocephalic, atraumatic Neck: supple, non-tender Respiratory: clear to auscultation Cardiovascular: regular rate and rhythm (no m/r/g) Gastrointestinal: soft Extremities: normal pulses Labs Result Diagram: 11/02/1839911/02/18 0400 Results 24hrs Laboratory Tests Test 11/02/18 04:00 White Blood Count 6.4 Red Blood Count 3.50 L Hemoglobin 10.7 L Hematocrit 33.1 L Mean Corpuscular Volume 94.6 Mean Corpuscular Hemoglobin 30.6 Mean Corpuscular Hemoglobin Concent 32.3 Red Cell Distribution Width 17.4 H Platelet Count 113 #L Mean Platelet Volume 13.1 H Immature Granulocytes % 0.300 Neutrophils % 71.9 Lymphocytes % 14.8 L Monocytes % 7.5 Eosinophils % 4.6 Basophils % 0.9 Nucleated Red Blood Cells % 0.0 Immature Granulocytes # 0.020 Neutrophils # 4.6 Lymphocytes # 0.9 Monocytes # 0.5 Eosinophils # 0.3 Basophils # 0.1 Nucleated Red Blood Cells # 0.0 Sodium Level 136 Potassium Level 4.9 Chloride Level 108 Carbon Dioxide Level 18 L Anion Gap 10 Blood Urea Nitrogen 72 H Creatinine 3.36 H Est Glomerular Filtrat Rate mL/min 14 L Glucose Level 140 Calcium Level 8.7 Digoxin Level 2.9 *H Medications Medications Current Medications IV Flush (NS 3 ml) 3 ml PER PROTOCOL IV ; Start 10/26/18 at 04:30 Ondansetron HCl (Zofran Inj) 4 mg Q6H PRN IV NAUSEA/VOMITING Last administered on 11/01/18 19:36; Admin Dose 4 MG; Start 10/26/18 at 04:30 Acetaminophen (Tylenol Tab) 650 mg Q6H PRN PO .PAIN 1-3 OR TEMP; Start 10/26/18 at 04:30 Pantoprazole (Protonix Tab) 40 mg DAILY@06 PO Last administered on 11/02/18 05:58; Admin Dose 40 MG; Start 10/26/18 at 06:00 Aspirin (Aspirin) 81 mg DAILY PO Last administered on 11/02/18 10:48; Admin Dose 81 MG; Start 10/26/18 at 09:00 Multivitamins/ Minerals (Theragran-M) 1 tab DAILY PO Last administered on 11/02/18 10:48; Admin Dose 1 TAB; Start 10/26/18 at 09:00 Tramadol HCl (Ultram) 50 mg Q6 PRN PO PAIN; Start 10/26/18 at 04:30 Polyethylene Glycol (Miralax) 17 gm DAILY PO Last administered on 11/01/18 09:43; Admin Dose 17 GM; Start 10/26/18 at 09:00 Apixaban (Eliquis) 2.5 mg BID PO Last administered on 10/31/18 20:02; Admin Dose 2.5 MG; Start 10/26/18 at 21:00; Status Hold Allopurinol (Zyloprim) 200 mg DAILY PO Last administered on 11/02/18at 10:49; Admin Dose 200 MG; Start 10/27/18 at 09:00 Levothyroxine Sodium (Synthroid) 25 mcg DAILY@06 PO Last administered on 11/02/18at 05:58; Admin Dose 25 MCG; Start 10/28/18 at 06:00 Sodium Chloride 1,000 ml @ 50 mls/hr Q20H IV Last administered on 11/02/18at 05:01; Admin Dose 50 MLS/HR; Start 10/31/18 at 15:00 Dopamine HCl/ Dextrose 250 ml @ 8.925 mls/ hr TITRATE IV Last administered on 11/02/18at 12:39; Admin Dose 17.85 MLS/HR; Start 10/31/18 at 15:30 Hydralazine HCl (Apresoline) 10 mg Q4H PRN IV ELEVATED BLOOD PRESSURE Last administered on 11/02/18at 02:41; Admin Dose 10 MG; Start 10/31/18 at 20:30 MARIVEL MAC M.D. Nov 02, 2018 13:20
[2018-11-03] VITALS (88 sets, daily range): BP systolic 119–164; BP diastolic 56–115; PULSE 51–75; RESP 11–31
[2018-11-03] MEDS: ONDANSETRON 4 MG INJ IV PRN ×3 (05:26→18:50)
[2018-11-03] MEDS: LEVOTHYROXINE 25 MCG TAB PO SCH (05:26)
[2018-11-03] MEDS: PANTOPRAZOLE (EC) 40 MG TAB PO SCH (05:26)
[2018-11-03] MEDS: POLYETHYLENE GLYCOL 17 GM PACKET PO SCH ×2 (09:00→09:32)
[2018-11-03] MEDS: DOPamine-D5W 1.6 MG/ML 250 ML IV SCH ×2 (09:03→17:49)
[2018-11-03] MEDS: ALLOPURINOL 100 MG TAB PO SCH (09:30)
[2018-11-03] MEDS: ASPIRIN 81 MG TAB PO SCH (09:30)
[2018-11-03] MEDS: MULTIVITAMINS/MINERALS TAB PO SCH (09:30)
--- NOTE | 2018-11-03 12:42 | PN ---
Date/Time of Note Date/Time of Note DATE: 11/03/18 TIME: 12:40 Assessment/Plan VTE [place] [facility] [place]: 2 [place] [facility] [place] Pharmacological prophylaxis: NA/contraindicated Pharm contraindication: surgical contra Lines/Catheters IV Catheter Type (from [facility]): Saline Lock Urinary Cath still in place: Yes Reason Cath still needed: urinary retention Assessment/Plan Hospital Course 1. Digoxin toxicity. bradycardia. 2. CHF with elevated BNP. Trop. is also elevated. 3. Hypertension 4. CAD 5. S/p CORONARY ARTERY BYPASS 6. Hyperkalemia, resolved. It might be related to prerenal reasons, bradycardia. 7. DOUGLAS on CKD. Creatinine is improved 8. hx of small transverse colon polyp, that was removed using the biopsy forceps. 9. Diverticulosis of the colon. 10. Normocytic normochromic anemia more likely due to chronic kidney disease 11. Transaminitis 2.2 dig. toxicity vs chronic. Base line is unknown. Improved 12. Gout 13. Hypothyroidism 14. Prediabetic Assessment/Plan - need pacemaker -creatinine improved - monitor HR , around 50 - c/w Ns fluids -on dopamine drip - digoxin levels 3.2 - cw ASA/Elquis -Renally dose all meds - c/w lopez - cw levothyroxine. -DVT proph. contraindicated due to possible pacemaker placement Result Diagram: 11/03/18 0400 11/03/18 0400 Results 24hrs Laboratory Tests Test 11/03/18 04:00 White Blood Count 4.8 # Red Blood Count 3.39 L Hemoglobin 10.6 L Hematocrit 32.5 L Mean Corpuscular Volume 95.9 Mean Corpuscular Hemoglobin 31.3 Mean Corpuscular Hemoglobin Concent 32.6 Red Cell Distribution Width 17.3 H Platelet Count 109 L Mean Platelet Volume 12.2 H Immature Granulocytes % 0.400 Neutrophils % 73.7 Lymphocytes % 12.2 L Monocytes % 9.7 Eosinophils % 3.2 Basophils % 0.8 Nucleated Red Blood Cells % 0.0 Immature Granulocytes # 0.020 Neutrophils # 3.5 Lymphocytes # 0.6 L Monocytes # 0.5 Eosinophils # 0.2 Basophils # 0.0 Nucleated Red Blood Cells # 0.0 Sodium Level 134 L Potassium Level 5.1 Chloride Level 108 Carbon Dioxide Level 18 L Anion Gap 8 Blood Urea Nitrogen 65 H Creatinine 3.20 H Est Glomerular Filtrat Rate mL/min 14 L Glucose Level 157 Calcium Level 8.9 Digoxin Level 3.2 *H Subjective 24 Hr Interval Summary Free Text/Dictation tired Exam/Review of Systems Exam Vitals Vital Signs Date Temp Pulse Resp B/P (MAP) Pulse Ox O2 O2 Flow FiO2 Time Delivery Rate 11/03/18 58 16 157/70 91 10:45 (99) 11/03/18 Room Air 10:00 11/03/18 98.2 08:00 10/31/18 2.0 09:05 Intake and Output 11/02/18 11/02/18 11/03/18 1515:00 23:00 07:00 IntakeIntake Total 902.80 ml 819.575 ml 584.46 ml OutputOutput Total 275 ml 210 ml 215 ml BalanceBalance 627.80 ml 609.575 ml 369.46 ml Constitutional: alert, oriented Head: normocephalic Eyes: nl conjunctiva Cardiovascular: regular rate and rhythm Gastrointestinal: soft Musculoskeletal: muscle weakness Results Results 24hrs Laboratory Tests Test 11/03/18 04:00 White Blood Count 4.8 # Red Blood Count 3.39 L Hemoglobin 10.6 L Hematocrit 32.5 L Mean Corpuscular Volume 95.9 Mean Corpuscular Hemoglobin 31.3 Mean Corpuscular Hemoglobin Concent 32.6 Red Cell Distribution Width 17.3 H Platelet Count 109 L Mean Platelet Volume 12.2 H Immature Granulocytes % 0.400 Neutrophils % 73.7 Lymphocytes % 12.2 L Monocytes % 9.7 Eosinophils % 3.2 Basophils % 0.8 Nucleated Red Blood Cells % 0.0 Immature Granulocytes # 0.020 Neutrophils # 3.5 Lymphocytes # 0.6 L Monocytes # 0.5 Eosinophils # 0.2 Basophils # 0.0 Nucleated Red Blood Cells # 0.0 Sodium Level 134 L Potassium Level 5.1 Chloride Level 108 Carbon Dioxide Level 18 L Anion Gap 8 Blood Urea Nitrogen 65 H Creatinine 3.20 H Est Glomerular Filtrat Rate mL/min 14 L Glucose Level 157 Calcium Level 8.9 Digoxin Level 3.2 *H Medications Medication Current Medications IV Flush (NS 3 ml) 3 ml PER PROTOCOL IV ; Start 10/26/18 at 04:30 Ondansetron HCl (Zofran Inj) 4 mg Q6H PRN IV NAUSEA/VOMITING Last administered on 11/03/18 11:26; Admin Dose 4 MG; Start 10/26/18 at 04:30 Acetaminophen (Tylenol Tab) 650 mg Q6H PRN PO .PAIN 1-3 OR TEMP; Start 10/26/18 at 04:30 Pantoprazole (Protonix Tab) 40 mg DAILY@06 PO Last administered on 11/03/18 05 :26; Admin Dose 40 MG; Start 10/26/18 at 06:00 Aspirin (Aspirin) 81 mg DAILY PO Last administered on 11/03/18 09:30; Admin Dose 81 MG; Start 10/26/18 at 09:00 Multivitamins/ Minerals (Theragran-M) 1 tab DAILY PO Last administered on 11/03/18 09:30; Admin Dose 1 TAB; Start 10/26/18 at 09:00 Tramadol HCl (Ultram) 50 mg Q6 PRN PO PAIN; Start 10/26/18 at 04:30 Polyethylene Glycol (Miralax) 17 gm DAILY PO Last administered on 11/01/18 09:43; Admin Dose 17 GM; Start 10/26/18 at 09:00 Apixaban (Eliquis) 2.5 mg BID PO Last administered on 10/31/18 20:02; Admin Dose 2.5 MG; Start 10/26/18 at 21:00; Status Hold Allopurinol (Zyloprim) 200 mg DAILY PO Last administered on 11/03/18 09:30; Admin Dose 200 MG; Start 10/27/18 at 09:00 Levothyroxine Sodium (Synthroid) 25 mcg DAILY@06 PO Last administered on 11/03/18 05:26; Admin Dose 25 MCG; Start 10/28/18 at 06:00 Sodium Chloride 1,000 ml @ 50 mls/hr Q20H IV Last administered on 11/02/18 23:24; Admin Dose 50 MLS/HR; Start 10/31/18 at 15:00 Dopamine HCl/ Dextrose 250 ml @ 8.925 mls/ hr TITRATE IV Last administered on 11/03/18 09:03; Admin Dose 26.775 MLS/HR; Start 10/31/18 at 15:30 Hydralazine HCl (Apresoline) 10 mg Q4H PRN IV ELEVATED BLOOD PRESSURE Last administered on 11/02/18at 17:35; Admin Dose 10 MG; Start 10/31/18 at 20:30 Hydralazine HCl (Apresoline) 25 mg TID PO Last administered on 11/03/18at 09:32; Admin Dose 25 MG; Start 11/02/18 at 21:00 ARSALAN MAJANO Nov 03, 2018 12:42
--- NOTE | 2018-11-03 14:57 | CONS ---
Assessment/Plan Assessment/Plan Assessment/Plan (Daily) Bradycardia with junctional rhythm sec to digoxin toxicity Paroxysmal atrial fibrillation Hypertension Cardiomyopathy Coronary artery disease, status post coronary artery bypass graft surgery x4 in 2014. Dyslipidemia. Acute on chronic renal failure, Hypothyroidism Continue Dopamine Continue Hydralazine Continue Eliquis Avoid Nephrotoxin Avoid JC-1/ARBs Avoid AV Amy Blockers Digoxin level daily Consultation Date/Type/Reason Admit Date/Time Oct 25, 2018 at 23:41 Initial Consult Date 10/31/18 Type of Consult Cardiology Requesting Provider: SHAKIRA GARCIA MD Date/Time of Note DATE: 11/03/18 TIME: 14:56 Exam/Review of Systems Vital Signs Vitals Vital Signs Date Temp Pulse Resp B/P (MAP) Pulse Ox O2 O2 Flow FiO2 Time Delivery Rate 11/03/18 60 22 136/115 93 14:15 (122) 11/03/18 98.0 Nasal 2.0 14:00 Cannula Intake and Output 11/02/18 11/02/18 11/03/18 1515:00 23:00 07:00 IntakeIntake Total 902.80 ml 819.575 ml 584.46 ml OutputOutput Total 275 ml 210 ml 215 ml BalanceBalance 627.80 ml 609.575 ml 369.46 ml Exam Exam Constitutional: alert, oriented Head: normocephalic, atraumatic Neck: supple, non-tender Respiratory: clear to auscultation Cardiovascular: regular rate and rhythm (no m/r/g) Gastrointestinal: soft Extremities: normal pulses Labs Result Diagram: 11/03/18 0400 11/03/18 0400 Results 24hrs Laboratory Tests Test 11/03/18 04:00 White Blood Count 4.8 # Red Blood Count 3.39 L Hemoglobin 10.6 L Hematocrit 32.5 L Mean Corpuscular Volume 95.9 Mean Corpuscular Hemoglobin 31.3 Mean Corpuscular Hemoglobin Concent 32.6 Red Cell Distribution Width 17.3 H Platelet Count 109 L Mean Platelet Volume 12.2 H Immature Granulocytes % 0.400 Neutrophils % 73.7 Lymphocytes % 12.2 L Monocytes % 9.7 Eosinophils % 3.2 Basophils % 0.8 Nucleated Red Blood Cells % 0.0 Immature Granulocytes # 0.020 Neutrophils # 3.5 Lymphocytes # 0.6 L Monocytes # 0.5 Eosinophils # 0.2 Basophils # 0.0 Nucleated Red Blood Cells # 0.0 Sodium Level 134 L Potassium Level 5.1 Chloride Level 108 Carbon Dioxide Level 18 L Anion Gap 8 Blood Urea Nitrogen 65 H Creatinine 3.20 H Est Glomerular Filtrat Rate mL/min 14 L Glucose Level 157 Calcium Level 8.9 Digoxin Level 3.2 *H Medications Medications Current Medications IV Flush (NS 3 ml) 3 ml PER PROTOCOL IV ; Start 10/26/18 at 04:30 Ondansetron HCl (Zofran Inj) 4 mg Q6H PRN IV NAUSEA/VOMITING Last administered on 11/03/18 11:26; Admin Dose 4 MG; Start 10/26/18 at 04:30 Acetaminophen (Tylenol Tab) 650 mg Q6H PRN PO .PAIN 1-3 OR TEMP; Start 10/26/18 at 04:30 Pantoprazole (Protonix Tab) 40 mg DAILY@06 PO Last administered on 11/03/18 05:26; Admin Dose 40 MG; Start 10/26/18 at 06:00 Aspirin (Aspirin) 81 mg DAILY PO Last administered on 11/03/18 09:30; Admin Dose 81 MG; Start 10/26/18 at 09:00 Multivitamins/ Minerals (Theragran-M) 1 tab DAILY PO Last administered on 11/03/18 09:30; Admin Dose 1 TAB; Start 10/26/18 at 09:00 Tramadol HCl (Ultram) 50 mg Q6 PRN PO PAIN; Start 10/26/18 at 04:30 Polyethylene Glycol (Miralax) 17 gm DAILY PO Last administered on 11/01/18 09:43; Admin Dose 17 GM; Start 10/26/18 at 09:00 Apixaban (Eliquis) 2.5 mg BID PO Last administered on 10/31/18 20:02; Admin Dose 2.5 MG; Start 10/26/18 at 21:00; Status Hold Allopurinol (Zyloprim) 200 mg DAILY PO Last administered on 11/03/18 09:30; Admin Dose 200 MG; Start 10/27/18 at 09:00 Levothyroxine Sodium (Synthroid) 25 mcg DAILY@06 PO Last administered on 11/03/18 05:26; Admin Dose 25 MCG; Start 10/28/18 at 06:00 Sodium Chloride 1,000 ml @ 50 mls/hr Q20H IV Last administered on 11/02/18 23:24; Admin Dose 50 MLS/HR; Start 10/31/18 at 15:00 Dopamine HCl/ Dextrose 250 ml @ 8.925 mls/ hr TITRATE IV Last administered on 11/03/18 09:03; Admin Dose 26.775 MLS/HR; Start 10/31/18 at 15:30 Hydralazine HCl (Apresoline) 10 mg Q4H PRN IV ELEVATED BLOOD PRESSURE Last administered on 11/02/18at 17:35; Admin Dose 10 MG; Start 10/31/18 at 20:30 Hydralazine HCl (Apresoline) 25 mg TID PO Last administered on 11/03/18 13:57; Admin Dose 25 MG; Start 11/02/18 at 21:00 MARIVEL MAC M.D. Nov 03, 2018 14:57
[2018-11-03] MEDS: DEXTROSE 5%-0.45% NACL 1,000 ML IV SCH (16:08)
[2018-11-03] MEDS ORDERED: ONDANSETRON 4 MG INJ IV STA (19:45)
[2018-11-03] MEDS ORDERED: METOCLOPRAMIDE 10 MG INJ IV PRN (20:00)
[2018-11-04] VITALS (90 sets, daily range): BP systolic 115–157; BP diastolic 52–83; PULSE 46–96; RESP 11–25; Ht 152.4 cm; Wt 63.1 kg
[2018-11-04] MEDS: DOPamine-D5W 1.6 MG/ML 250 ML IV SCH ×2 (01:55→09:47)
[2018-11-04] MEDS: PANTOPRAZOLE (EC) 40 MG TAB PO SCH (06:18)
[2018-11-04] MEDS: LEVOTHYROXINE 25 MCG TAB PO SCH (06:18)
[2018-11-04] MEDS: ASPIRIN 81 MG TAB PO SCH (09:24)
[2018-11-04] MEDS: POLYETHYLENE GLYCOL 17 GM PACKET PO SCH (09:25)
[2018-11-04] MEDS: ALLOPURINOL 100 MG TAB PO SCH (09:25)
[2018-11-04] MEDS: MULTIVITAMINS/MINERALS TAB PO SCH (09:25)
--- NOTE | 2018-11-04 10:53 | PN ---
Date/Time of Note Date/Time of Note DATE: 11/04/18 TIME: 10:48 Assessment/Plan VTE Prophylaxis Risk score (from [facility] [place])>0 risk: 9 SCD applied (from [facility] [place]): Yes Pharmacological prophylaxis: NA/contraindicated Pharm contraindication: low risk/ambulating Lines/Catheters [facility] Central Line Central line still needed: Yes Urinary Cath still in place: Yes Reason Cath still needed: urinary retention Assessment/Plan Assessment/Plan ssessment/Plan # Bradycardia, with of digoxin toxicity and visual disturbances.- slowly decreasing levels of digoxin with ongoing bradycardia s/p digibind? Sick sinus still has elevated dig levels to 3.5> 3.2 with poor clearnce , now on dopamine gtt # Paroxysmal atrial fibrillation, currently in a likely junctional escape rhythm in the setting of digoxin toxicity, on Eliquis> now oiiff # DOUGLAS on CKD. Likely secondary to worsening renal failure due to digitalis tox icity versus cardiorenal disease baseline creatinine is 1.6, . Had an abdominal ultrasound done that showed no high evidence of hydronephrosis, GFR same # Hypertension # History of cardiomyopathy, decreased left ventricular ejection fraction. # History of coronary artery disease, status post coronary artery bypass graft surgery x4 in 2014. #. Positive troponin in the setting of severe renal dysfunction and severe bradycardia ?ACS #. Dyslipidemia. # hx of small transverse colon polyp, that was removed using the biopsy forceps. # Diverticulosis of the colon. #. Normocytic normochromic anemia more likely due to chronic kidney disease #. Transaminitis 2.2 dig. toxicity vs chronic. Base line is unknown #. Gout # hYpothyroidism Plan - Likely pacemeker tmw , on dopamine gtt 20 , will double bam - left arm edema r/o DVT - chest Xray - ? Heparin> will ask cards - cw ASA - on hydralzine 25 tid for HTN - monitor UOP - cw Levothyroxine 25 -Monitor kidney function currently no emergent indication of hemodialysis -Renally dose all meds - Straight cath. strict I and o Result Diagram: 11/03/18 0400 11/03/18 0400 Subjective 24 Hr Interval Summary Free Text/Dictation Feels the same. Very poor appetite. Exam/Review of Systems Exam Vitals Vital Signs Date Temp Pulse Resp B/P (MAP) Pulse Ox O2 O2 Flow FiO2 Time Delivery Rate 11/04/18 52 13 155/73 96 08:15 (100) 11/04/18 98.5 Room Air 08:00 11/03/18 2.0 19:00 Intake and Output 11/03/18 11/03/18 11/04/18 1515:00 23:00 07:00 IntakeIntake Total 759.190 ml 358 ml 522 ml OutputOutput Total 275 ml 290 ml 260 ml BalanceBalance 484.190 ml 68 ml 262 ml Exam Constitutional: alert, oriented Head: normocephalic Eyes: nl conjunctiva Cardiovascular: regular rate and rhythm Lungs: dec breath sounds bases Gastrointestinal: soft Musculoskeletal: muscle weakness left arm edema Medications Medication Current Medications IV Flush (NS 3 ml) 3 ml PER PROTOCOL IV ; Start 10/26/18 at 04:30 Ondansetron HCl (Zofran Inj) 4 mg Q6H PRN IV NAUSEA/VOMITING Last administered on 11/03/18at 18:50; Admin Dose 4 MG; Start 10/26/18 at 04:30 Acetaminophen (Tylenol Tab) 650 mg Q6H PRN PO .PAIN 1-3 OR TEMP; Start 10/26/18 at 04:30 Pantoprazole (Protonix Tab) 40 mg DAILY@06 PO Last administered on 11/04/18at 06:18; Admin Dose 40 MG; Start 10/26/18 at 06:00 Aspirin (Aspirin) 81 mg DAILY PO Last administered on 11/04/18at 09:24; Admin Dose 81 MG; Start 10/26/18 at 09:00 Multivitamins/ Minerals (Theragran-M) 1 tab DAILY PO Last administered on 11/04/18at 09:25; Admin Dose 1 TAB; Start 10/26/18 at 09:00 Tramadol HCl (Ultram) 50 mg Q6 PRN PO PAIN; Start 10/26/18 at 04:30 Polyethylene Glycol (Miralax) 17 gm DAILY PO Last administered on 11/04/18at 09:25; Admin Dose 17 GM; Start 10/26/18 at 09:00 Apixaban (Eliquis) 2.5 mg BID PO Last administered on 10/31/18at 20:02; Admin Dose 2.5 MG; Start 10/26/18 at 21:00; Status Hold Allopurinol (Zyloprim) 200 mg DAILY PO Last administered on 11/04/18 09:25; Ad min Dose 200 MG; Start 10/27/18 at 09:00 Levothyroxine Sodium (Synthroid) 25 mcg DAILY@06 PO Last administered on 11/04/18 06:18; Admin Dose 25 MCG; Start 10/28/18 at 06:00 Dopamine HCl/ Dextrose 250 ml @ 8.925 mls/ hr TITRATE IV Last administered on 11/04/18 09:47; Admin Dose 47.325 MLS/HR; Start 10/31/18 at 15:30 Hydralazine HCl (Apresoline) 10 mg Q4H PRN IV ELEVATED BLOOD PRESSURE Last adm inistered on 11/02/18 17:35; Admin Dose 10 MG; Start 10/31/18 at 20:30 Hydralazine HCl (Apresoline) 25 mg TID PO Last administered on 11/04/18 09:24; Admin Dose 25 MG; Start 11/02/18 at 21:00 Dextrose/Sodium Chloride 1,000 ml @ 30 mls/hr Q24H IV Last administered on 11/03/18 16:08; Admin Dose 30 MLS/HR; Start 11/03/18 at 16:00 Metoclopramide HCl (Reglan) 10 mg Q6H PRN IV NAUSEA Last administered on 11/03/18 20:22; Admin Dose 10 MG; Start 11/03/18 at 20:00 SHAKIRA GARCIA MD Nov 04, 2018 10:53
[2018-11-04] MEDS ORDERED: DOPamine 1,600 MG in DEXTROSE 5% 210 ML IV SCH (11:30)
--- NOTE | 2018-11-04 12:29 | CONS ---
Assessment/Plan Assessment/Plan Hospital Course (Demo Recall) IMPRESSION: 1. Bradycardia, in the setting of digoxin toxicity with sequelae of that digoxin toxicity and visual disturbances. -ongoing bradycardia but appears to ahve some AF not just junctional 2. Digoxin toxicity-Slowly improving status post Digibind. 3. Paroxysmal atrial fibrillation, currently in a likely junctional escape rhythm in the setting of digoxin toxicity, on Eliquis. 4. Hypertension, uncontrolled still 5. History of cardiomyopathy, decreased left ventricular ejection fraction. 6. History of coronary artery disease, status post coronary artery bypass graft surgery x4 in 2014. 7. Positive troponin in the setting of severe renal dysfunction and severe bradycardia- no sig uptrend 8. Dyslipidemia. 9. Acute on chronic renal failure, being followed by Dr. Driscoll/Kendy with ongoing hydration.-some mild improvement today on dopamine 10. Hyperkalemia, improved. 11. Increased liver function tests, ongoing. 12. Hypothyroid-elevated TSH nand now started on synthroid, s/p endocrione consult Recc: -Now transferred to ICU and started on dopamine in attempt to increase HR and possibly CO to improve renal function with positive response at this time and over weekend has increased to high dose dopamine. ? necessity. Will wean down and follow HR closely -Check INR and start heparin for coverage of AF as necessary -Follow renal function and volume status closely -Contineu hydralazine and follow BP clsoely -Scheduled for PPM tomorrow AM as necessary -continue baby asa Consultation Date/Type/Reason Admit Date/Time Oct 25, 2018 at 23:41 Initial Consult Date 10/26/18 Type of Consult Cardiology Reason for Consultation bradycardia Requesting Provider: SHAKIRA GARCIA MD Date/Time of Note DATE: 11/04/18 TIME: 12:22 Exam/Review of Systems Vital Signs Vitals Vital Signs Date Temp Pulse Resp B/P (MAP) Pulse Ox O2 O2 Flow FiO2 Time Delivery Rate 11/04/18 63 21 136/74 92 Nasal 11:00 (94) Cannula 11/04/18 98.5 08:00 11/03/18 2.0 19:00 Intake and Output 11/03/18 11/03/18 11/04/18 1515:00 23:00 07:00 IntakeIntake Total 759.190 ml 358 ml 522 ml OutputOutput Total 275 ml 290 ml 260 ml BalanceBalance 484.190 ml 68 ml 262 ml Exam Exam Review of Systems: CONSTITUTIONAL: No fevers, chills. PULMONARY: No sob CARDIOVASCULAR: No chest pain/palpitations GASTROINTESTINAL: No nausea/vomiting. GENITOURINARY: No hematuria/dysuria. MUSCULOSKELETAL: No myagias/arthalgias. PSYCHIATRIC: The patient denies depression. NEUROLOGIC: No weaknes, somewhat lethargic Constitutional: alert Psych: no complaints Head: normocephalic ENMT: mucosa pink and moist Neck: supple, jvd Respiratory: diminished breath sounds (at bases/B) Cardiovascular: irregular rhythm Gastrointestinal: soft Musculoskeletal: muscle tone (normal) Extremities: edema Neurological: other (No focal deficits) Labs Result Diagram: 11/03/18 0400 11/03/18 0400 Medications Medications Current Medications IV Flush (NS 3 ml) 3 ml PER PROTOCOL IV ; Start 10/26/18 at 04:30 Ondansetron HCl (Zofran Inj) 4 mg Q6H PRN IV NAUSEA/VOMITING Last administered on 11/03/18at 18:50; Admin Dose 4 MG; Start 10/26/18 at 04:30 Acetaminophen (Tylenol Tab) 650 mg Q6H PRN PO .PAIN 1-3 OR TEMP; Start 10/26/18 at 04:30 Pantoprazole (Protonix Tab) 40 mg DAILY@06 PO Last administered on 11/04/18at 06:18; Admin Dose 40 MG; Start 10/26/18 at 06:00 Aspirin (Aspirin) 81 mg DAILY PO Last administered on 11/04/18at 09:24; Admin Dose 81 MG; Start 10/26/18 at 09:00 Multivitamins/ Minerals (Theragran-M) 1 tab DAILY PO Last administered on 11/04/18at 09:25; Admin Dose 1 TAB; Start 10/26/18 at 09:00 Tramadol HCl (Ultram) 50 mg Q6 PRN PO PAIN; Start 10/26/18 at 04:30 Polyethylene Glycol (Miralax) 17 gm DAILY PO Last administered on 11/04/18at 09:25; Admin Dose 17 GM; Start 10/26/18 at 09:00 Apixaban (Eliquis) 2.5 mg BID PO Last administered on 10/31/18at 20:02; Admin Dose 2.5 MG; Start 10/26/18 at 21:00; Status Hold Allopurinol (Zyloprim) 200 mg DAILY PO Last administered on 11/04/18at 09:25; Admin Dose 200 MG; Start 10/27/18 at 09:00 Levothyroxine Sodium (Synthroid) 25 mcg DAILY@06 PO Last administered on 11/04/18 06:18; Admin Dose 25 MCG; Start 10/28/18 at 06:00 Hydralazine HCl (Apresoline) 10 mg Q4H PRN IV ELEVATED BLOOD PRESSURE Last administered on 11/02/18at 17:35; Admin Dose 10 MG; Start 10/31/18 at 20:30 Hydralazine HCl (Apresoline) 25 mg TID PO Last administered on 11/04/18at 09:24; Admin Dose 25 MG; Start 11/02/18 at 21:00 Dextrose/Sodium Chloride 1,000 ml @ 30 mls/hr Q24H IV Last administered on 11/03/18at 16:08; Admin Dose 30 MLS/HR; Start 11/03/18 at 16:00 Metoclopramide HCl (Reglan) 10 mg Q6H PRN IV NAUSEA Last administered on 11/03/18at 20:22; Admin Dose 10 MG; Start 11/03/18 at 20:00 Dopamine HCl 800 mg/Dextrose 250 ml @ 2.37 mls/hr TITRATE IV ; Start 11/04/18 at 12:00 ABDI SCHWARZ Nov 04, 2018 12:29
[2018-11-04] MEDS: DOPamine 800 MG in DEXTROSE 5% 230 ML IV SCH (15:29)
[2018-11-04] MEDS ORDERED: HEPARIN 1000 UNITS/ML 10 ML INJ IV ONE (18:00)
[2018-11-04] MEDS ORDERED: HEPARIN 1000 UNITS/ML 10 ML INJ IV PRN ×2 (18:00)
[2018-11-04] MEDS: HEPARIN 25000 UNITS/250 ML 250 ML IV SCH (18:02)
[2018-11-04] MEDS: DEXTROSE 5%-0.45% NACL 1,000 ML IV SCH (21:31)
[2018-11-05] VITALS (70 sets, daily range): BP systolic 79–148; BP diastolic 46–107; PULSE 44–123; RESP 9–24
[2018-11-05] MEDS: PANTOPRAZOLE (EC) 40 MG TAB PO SCH (06:33)
[2018-11-05] MEDS: LEVOTHYROXINE 25 MCG TAB PO SCH (06:33)
--- NOTE | 2018-11-05 07:48 | CONS ---
Consult Date/Type/Reason Admit Date/Time Oct 25, 2018 at 23:41 Initial Consult Date Requesting Provider: SHAKIRA GARCIA MD Date/Time of Note DATE: 11/05/18 TIME: 07:43 Subjective No acute events - pt hemodynamically stable - on dopa gtt - planned to have pacer today - Nimisha Pres had flooding in the cathode maker - both B -level and 1st floor labs non-operational today - will re-schedule for when lab is available - hopefully tomorrow. Resume heparin gtt now and diet - NO past midnight again today pending availability. ROS: NO F/C/N/V/D/C/D Objective Vitals Vital Signs Date Temp Pulse Resp B/P (MAP) Pulse Ox O2 O2 Flow FiO2 Time Delivery Rate 11/05/18 60 15 138/67 96 06:45 (90) 11/05/18 98.5 04:00 11/04/18 Nasal 18:00 Cannula 11/03/18 2.0 19:00 Intake and Output 11/04/18 11/04/18 11/05/18 1515:00 23:00 07:00 IntakeIntake Total 968.4 ml 509.42 ml 402.15 ml OutputOutput Total 225 ml 265 ml 280 ml BalanceBalance 743.4 ml 244.42 ml 122.15 ml Exam General: WN/WD/NAD, AOx 2-3 HEENT: Unicetric/atraumatic/EOMI (does not follow commands) NECK: JVD elevated, no thyromegaly Lymph: no lymphadenopathy HEART: irregular with no S3, II/ systolic murmur at apex LUNGS: Coarse sounds ABD: soft, NT, ND, +BS : Intact Neuro: non focal SKIN: chronic changes EXT: trace edema Results/Medications Result Diagram: 11/05/18 0400 11/03/18 0400 Results 24 hrs Laboratory Tests Test 11/04/18 11:55 11/04/18 17:08 11/05/18 01:05 11/05/18 04:00 Prothrombin Time 14.5 Prothrombin Time 1.1 Ratio INR International 1.12 Normalized Ratio Activated 42.9 H > 180.0 *H 52.0 H Partial Thromboplast Time White Blood Count 4.8 Red Blood Count 3.43 L Hemoglobin 10.6 L Hematocrit 32.9 L Mean Corpuscular 95.9 Volume Mean Corpuscular 30.9 Hemoglobin Mean Corpuscular 32.2 Hemoglobin Concent Red Cell 17.2 H Distribution Width Platelet Count 153 # Mean Platelet Volume 11.1 H Immature 0.400 Granulocytes % Neutrophils % 78.1 H Lymphocytes % 9.5 L Monocytes % 8.5 Eosinophils % 2.9 Basophils % 0.6 Nucleated Red Blood 0.0 Cells % Immature 0.020 Granulocytes # Neutrophils # 3.8 Lymphocytes # 0.5 L Monocytes # 0.4 Eosinophils # 0.1 Basophils # 0.0 Nucleated Red Blood 0.0 Cells # Phosphorus Level 4.3 Magnesium Level 2.4 Home Meds Reported Medications Tramadol HCl (Tramadol HCl) 50 Mg Tablet, 50 MG PO Q6H PRN for PAIN AND/OR INFLAMMATION, #120 TAB 10/26/18 Apixaban* (Eliquis*) 2.5 Mg Tablet, 2.5 MG PO BID, TAB 10/26/18 Pantoprazole* (Pantoprazole*) 40 Mg Tablet.dr, 40 MG PO AC BREAKFAST, TAB 10/26/18 Amiodarone Hcl* (Amiodarone Hcl*) 200 Mg Tablet, 200 MG PO DAILY, #30 TAB 10/26/18 Furosemide* (Furosemide*) 40 Mg Tablet, 40 MG PO DAILY, TAB 10/26/18 Losartan Potassium* (Losartan Potassium*) 50 Mg Tablet, 50 MG PO DAILY, TAB 10/26/18 Allopurinol* (Allopurinol*) 300 Mg Tablet, 300 MG PO DAILY, TAB 10/26/18 Amlodipine Besylate* (Amlodipine Besylate*) 5 Mg Tablet, 5 MG PO DAILY for 90 Days, #90 10/26/18 Lisinopril* (Lisinopril*) 2.5 Mg Tablet, 2.5 MG PO DAILY for 90 Days, #90 10/26/18 Metoprolol Tartrate* (Lopressor*) 50 Mg Tab, 50 MG PO BID for 90 Days, #180 10/26/18 Atorvastatin* (Atorvastatin*) 40 Mg Tablet, 40 MG PO QHS for 90 Days, #90 10/26/18 Rivaroxaban* (Xarelto*) 20 Mg Tablet, 20 MG PO DAILY for 90 Days, #90 10/26/18 Furosemide* (Furosemide*) 20 Mg Tablet, 20 MG PO DAILY for 90 Days, #90 10/26/18 Aspirin Delayed Release (Aspirin Delayed Release) 81 Mg Tablet.dr, 81 MG PO DAILY for 90 Days, #90 TAKE 1 TABLET BY MOUTH EVERY DAY 10/26/18 Medications Current Medications IV Flush (NS 3 ml) 3 ml PER PROTOCOL IV ; Start 10/26/18 at 04:30 Ondansetron HCl (Zofran Inj) 4 mg Q6H PRN IV NAUSEA/VOMITING Last administered on 11/03/18at 18:50; Admin Dose 4 MG; Start 10/26/18 at 04:30 Acetaminophen (Tylenol Tab) 650 mg Q6H PRN PO .PAIN 1-3 OR TEMP; Start 10/26/18 at 04:30 Pantoprazole (Protonix Tab) 40 mg DAILY@06 PO Last administered on 11/05/18at 06:33; Admin Dose 40 MG; Start 10/26/18 at 06:00 Aspirin (Aspirin) 81 mg DAILY PO Last administered on 11/04/18at 09:24; Admin Dose 81 MG; Start 10/26/18 at 09:00 Multivitamins/ Minerals (Theragran-M) 1 tab DAILY PO Last administered on 11/04/18 09:25; Admin Dose 1 TAB; Start 10/26/18 at 09:00 Tramadol HCl (Ultram) 50 mg Q6 PRN PO PAIN; Start 10/26/18 at 04:30 Polyethylene Glycol (Miralax) 17 gm DAILY PO Last administered on 11/04/18at 09:25; Admin Dose 17 GM; Start 10/26/18 at 09:00 Apixaban (Eliquis) 2.5 mg BID PO Last administered on 10/31/18at 20:02; Admin Dose 2.5 MG; Start 10/26/18 at 21:00; Status Hold Allopurinol (Zyloprim) 200 mg DAILY PO Last administered on 11/04/18 09:25; Admin Dose 200 MG; Start 10/27/18 at 09:00 Levothyroxine Sodium (Synthroid) 25 mcg DAILY@06 PO Last administered on 10/19 06:33; Admin Dose 25 MCG; Start 10/28/18 at 06:00 Hydralazine HCl (Apresoline) 10 mg Q4H PRN IV ELEVATED BLOOD PRESSURE Last administered on 6/15/19at 17:35; Admin Dose 10 MG; Start 10/31/18 at 20:30 Hydralazine HCl (Apresoline) 25 mg TID PO Last administered on 11/04/18 21:30; Admin Dose 25 MG; Start 11/02/18 at 21:00 Dextrose/Sodium Chloride 1,000 ml @ 30 mls/hr Q24H IV Last administered on 11/04/18 21:31; Admin Dose 30 MLS/HR; Start 11/03/18 at 16:00 Metoclopramide HCl (Reglan) 10 mg Q6H PRN IV NAUSEA Last administered on 11/03/18 20:22; Admin Dose 10 MG; Start 11/03/18 at 20:00 Dopamine HCl 800 mg/Dextrose 250 ml @ 2.37 mls/hr TITRATE IV Last administered on 11/04/18 15:29; Admin Dose 5.92 MLS/HR; Start 11/04/18 at 12:00 Heparin Sodium (Porcine) (Heparin (1000 Units/ml)) 3,800 unit PER PROTOCOL PRN IV aPTT<47; Start 11/04/18 at 18:00 Heparin Sodium (Porcine) 250 ml @ 7.5 mls/hr PER PROTOCOL IV Last administered on 11/04/18 18:02; Admin Dose 7.5 MLS/HR; Start 11/04/18 at 18:00 Assessment/Plan Hospital Course (Demo Recall) 1. Bradycardia, in the setting of digoxin toxicity with sequelae of that digoxin toxicity and visual disturbances.- slowly decreasing levels of digoxin with ongoing bradycardia but stable to elevated BP - HR better - no indicaton for pacing now - - planned to have pacer today - Nimisha Pres had flooding in the cathode maker - both B -level and 1st floor labs non-operational today - will re- schedule for when lab is available - hopefully tomorrow. Resume heparin gtt now and diet - NO past midnight again today pending availability. 2. Digoxin toxicity-Slowly improving status post Digibind. - improved. 3. Paroxysmal atrial fibrillation, currently in a likely junctional escape rhythm in the setting of digoxin toxicity, on Eliquis. Rate controlled. 4. Hypertension, uncontrolled still 5. History of cardiomyopathy, decreased left ventricular ejection fraction.Gentle diuresis Ok. 6. History of coronary artery disease, status post coronary artery bypass graft surgery x4 in 2013. 7. Positive troponin in the setting of severe renal dysfunction and severe bradycardia- no sig uptrend 8. Dyslipidemia. 9. Acute on chronic renal failure, being followed by Dr. Driscoll with ongoing hydration.-continues to slowly improve - Cr high 3.2 - will follow. 10. Hyperkalemia, improved. 11. Increased liver function tests, ongoing. 12. Hypothyroid-elevated TSH nand now started on sythroid MICAELA LAROSE MD Nov 05, 2018 07:48
[2018-11-05] MEDS: POLYETHYLENE GLYCOL 17 GM PACKET PO SCH (08:39)
[2018-11-05] MEDS: ALLOPURINOL 100 MG TAB PO SCH (08:39)
[2018-11-05] MEDS: MULTIVITAMINS/MINERALS TAB PO SCH (08:40)
[2018-11-05] MEDS: ASPIRIN 81 MG TAB PO SCH (08:40)
--- NOTE | 2018-11-05 10:49 | PN ---
Date/Time of Note Date/Time of Note DATE: 11/05/18 TIME: 10:42 Assessment/Plan VTE Prophylaxis Risk score (from [facility] [place])>0 risk: 8 SCD applied (from [facility] [place]): Yes Pharmacological prophylaxis: NA/contraindicated Pharm contraindication: low risk/ambulating Lines/Catheters IV Catheter Type (from [facility] Central Line Central line still needed: Yes Urinary Cath still in place: Yes Reason Cath still needed: urinary retention Assessment/Plan Assessment/Plan asessment/Plan # Bradycardia, with of digoxin toxicity and visual disturbances.- slowly decreasing levels of digoxin with ongoing bradycardia s/p digibind? Sick sinus still has elevated dig levels to 3.5> 3.2 with poor clearnce , now on dopamine gtt > HR 70's on dopamine 5 # Paroxysmal atrial fibrillation, currently in a likely junctional escape rhythm in the setting of digoxin toxicity, on Eliquis> now on Heparin # DOUGLAS on CKD. Likely secondary to worsening renal failure due to digitalis toxicity versus cardiorenal disease baseline creatinine is 1.6, . Had an abdominal ultrasound done that showed no high evidence of hydronephrosis, GFR same # Hypertension # History of cardiomyopathy, decreased left ventricular ejection fraction. # History of coronary artery disease, status post coronary artery bypass graft surgery x4 in 2014. #. Positive troponin in the setting of severe renal dysfunction and severe bradycardia ?ACS #. Dyslipidemia. # hx of small transverse colon polyp, that was removed using the biopsy forceps. # Diverticulosis of the colon. #. Normocytic normochromic anemia more likely due to chronic kidney disease #. Transaminitis 2.2 dig. toxicity vs chronic. Base line is unknown #. Gout # hYpothyroidism # Mild hyponatremia # nausea.vommting likely sec to dig toxicity Plan - on low dose dopamine , will see after titrating off, pt was scheduded for pacemaker but matlab developer had flooding issues, will check with Dr Nettles - [place] Digoxinn levels - left arm edema neg for DVT - cW heparin./ASA - cw ASA - on hydralzine 25 tid for HTN - monitor UOP - cw Levothyroxine 25 -Monitor kidney function currently no emergent indication of hemodialysis -Renally dose all meds - Straight cath. strict I and o Result Diagram: 11/05/18 0400 11/05/18 0749 Results 24hrs Laboratory Tests Test 11/04/18 11:55 11/04/18 17:08 11/05/18 01:05 11/05/18 04:00 Prothrombin Time 14.5 Prothrombin Time 1.1 Ratio INR International 1.12 Normalized Ratio Activated 42.9 H > 180.0 *H 52.0 H Partial Thromboplast Time White Blood Count 4.8 Red Blood Count 3.43 L Hemoglobin 10.6 L Hematocrit 32.9 L Mean Corpuscular 95.9 Volume Mean Corpuscular 30.9 Hemoglobin Mean Corpuscular 32.2 Hemoglobin Concent Red Cell 17.2 H Distribution Width Platelet Count 153 # Mean Platelet Volume 11.1 H Immature 0.400 Granulocytes % Neutrophils % 78.1 H Lymphocytes % 9.5 L Monocytes % 8.5 Eosinophils % 2.9 Basophils % 0.6 Nucleated Red Blood 0.0 Cells % Immature 0.020 Granulocytes # Neutrophils # 3.8 Lymphocytes # 0.5 L Monocytes # 0.4 Eosinophils # 0.1 Basophils # 0.0 Nucleated Red Blood 0.0 Cells # Phosphorus Level 4.3 Magnesium Level 2.4 Test 11/05/18 07:49 Sodium Level 133 L Potassium Level 5.0 Chloride Level 105 Carbon Dioxide Level 17 L Anion Gap 11 Blood Urea Nitrogen 61 H Creatinine 2.70 H Est Glomerular 18 L Filtrat Rate mL/min Glucose Level 132 Calcium Level 8.4 Total Bilirubin 0.7 Direct Bilirubin 0.00 Indirect Bilirubin 0.7 Aspartate Amino 48 H Transf (AST/SGOT) Alanine 52 Aminotransferase (AL T/SGPT) Alkaline Phosphatase 275 H Total Protein 7.2 Albumin 3.2 L Globulin 4.00 H Albumin/Globulin 0.80 Ratio Subjective 24 Hr Interval Summary Free Text/Dictation Feels weak, nasuea HR in 70 on dopamine 5 Exam/Review of Systems Exam Vitals Vital Signs Date Temp Pulse Resp B/P (MAP) Pulse Ox O2 O2 Flow FiO2 Time Delivery Rate 11/05/18 123 21 121/84 95 Nasal 10:00 (96) Cannula 11/05/18 98.2 08:00 11/03/18 2.0 19:00 Intake and Output 11/04/18 11/04/18 11/05/18 1414:59 22:59 06:59 IntakeIntake Total 954.4 ml 540.09 ml 409.65 ml OutputOutput Total 220 ml 260 ml 320 ml BalanceBalance 734.4 ml 280.09 ml 89.65 ml Exam Constitutional: alert, oriented Head: normocephalic Eyes: nl conjunctiva Cardiovascular: regular rate and rhythm Lungs: dec breath sounds bases Gastrointestinal: soft Musculoskeletal: muscle weakness left arm edema Results Results 24hrs Laboratory Tests Test 11/04/18 11:55 11/04/18 17:08 11/05/18 01:05 11/05/18 04:00 Prothrombin Time 14.5 Prothrombin Time 1.1 Ratio INR International 1.12 Normalized Ratio Activated 42.9 H > 180.0 *H 52.0 H Partial Thromboplast Time White Blood Count 4.8 Red Blood Count 3.43 L Hemoglobin 10.6 L Hematocrit 32.9 L Mean Corpuscular 95.9 Volume Mean Corpuscular 30.9 Hemoglobin Mean Corpuscular 32.2 Hemoglobin Concent Red Cell 17.2 H Distribution Width Platelet Count 153 # Mean Platelet Volume 11.1 H Immature 0.400 Granulocytes % Neutrophils % 78.1 H Lymphocytes % 9.5 L Monocytes % 8.5 Eosinophils % 2.9 Basophils % 0.6 Nucleated Red Blood 0.0 Cells % Immature 0.020 Granulocytes # Neutrophils # 3.8 Lymphocytes # 0.5 L Monocytes # 0.4 Eosinophils # 0.1 Basophils # 0.0 Nucleated Red Blood 0.0 Cells # Phosphorus Level 4.3 Magnesium Level 2.4 Test 11/05/18 07:49 Sodium Level 133 L Potassium Level 5.0 Chloride Level 105 Carbon Dioxide Level 17 L Anion Gap 11 Blood Urea Nitrogen 61 H Creatinine 2.70 H Est Glomerular 18 L Filtrat Rate mL/min Glucose Level 132 Calcium Level 8.4 Total Bilirubin 0.7 Direct Bilirubin 0.00 Indirect Bilirubin 0.7 Aspartate Amino 48 H Transf (AST/SGOT) Alanine 52 Aminotransferase (AL T/SGPT) Alkaline Phosphatase 275 H Total Protein 7.2 Albumin 3.2 L Globulin 4.00 H Albumin/Globulin 0.80 Ratio Medications Medication Current Medications IV Flush (NS 3 ml) 3 ml PER PROTOCOL IV ; Start 10/26/18 at 04:30 Ondansetron HCl (Zofran Inj) 4 mg Q6H PRN IV NAUSEA/VOMITING Last administered on 11/03/18at 18:50; Admin Dose 4 MG; Start 10/26/18 at 04:30 Acetaminophen (Tylenol Tab) 650 mg Q6H PRN PO .PAIN 1-3 OR TEMP; Start 10/26/18 at 04:30 Pantoprazole (Protonix Tab) 40 mg DAILY@06 PO Last administered on 11/05/18 06:33; Admin Dose 40 MG; Start 10/26/18 at 06:00 Aspirin (Aspirin) 81 mg DAILY PO Last administered on 11/05/18 08:40; Admin Dose 81 MG; Start 10/26/18 at 09:00 Multivitamins/ Minerals (Theragran-M) 1 tab DAILY PO Last administered on 11/05/18 08:40; Admin Dose 1 TAB; Start 10/26/18 at 09:00 Tramadol HCl (Ultram) 50 mg Q6 PRN PO PAIN; Start 10/26/18 at 04:30 Polyethylene Glycol (Miralax) 17 gm DAILY PO Last administered on 11/04/18 09:25; Admin Dose 17 GM; Start 10/26/18 at 09:00 Apixaban (Eliquis) 2.5 mg BID PO Last administered on 10/31/18 20:02; Admin Dose 2.5 MG; Start 10/26/18 at 21:00; Status Hold Allopurinol (Zyloprim) 200 mg DAILY PO Last administered on 11/05/18 08:39; Admin Dose 200 MG; Start 10/27/18 at 09:00 Levothyroxine Sodium (Synthroid) 25 mcg DAILY@06 PO Last administered on 11/05/18 06:33; Admin Dose 25 MCG; Start 10/28/18 at 06:00 Hydralazine HCl (Apresoline) 10 mg Q4H PRN IV ELEVATED BLOOD PRESSURE Last administered on 11/02/18 17:35; Admin Dose 10 MG; Start 10/31/18 at 20:30 Hydralazine HCl (Apresoline) 25 mg TID PO Last administered on 11/05/18 08:40; Admin Dose 25 MG; Start 11/02/18 at 21:00 Dextrose/Sodium Chloride 1,000 ml @ 30 mls/hr Q24H IV Last administered on 11/04/18 21:31; Admin Dose 30 MLS/HR; Start 11/03/18 at 16:00 Metoclopramide HCl (Reglan) 10 mg Q6H PRN IV NAUSEA Last administered on 6/16/19at 20:22; Admin Dose 10 MG; Start 11/03/18 at 20:00 Dopamine HCl 800 mg/Dextrose 250 ml @ 2.37 mls/hr TITRATE IV Last administered on 11/04/18at 15:29; Admin Dose 5.92 MLS/HR; Start 11/04/18 at 12:00 Heparin Sodium (Porcine) (Heparin (1000 Units/ml)) 3,800 unit PER PROTOCOL PRN IV aPTT<47; Start 11/04/18 at 18:00 Heparin Sodium (Porcine) 250 ml @ 7.5 mls/hr PER PROTOCOL IV Last administered on 11/04/18at 18:02; Admin Dose 7.5 MLS/HR; Start 11/04/18 at 18:00 SHAKIRA GARCIA MD Nov 05, 2018 10:49
[2018-11-05] MEDS: DEXTROSE 5%-0.9% NACL 1,000 ML IV SCH (11:34)
[2018-11-05] MEDS: ONDANSETRON 4 MG INJ IV PRN (11:37)
[2018-11-05] MEDS ORDERED: SOD CHLORIDE 0.9% 500 ML IV ONE (13:30)
[2018-11-05] MEDS: DOPamine 800 MG in DEXTROSE 5% 230 ML IV SCH (20:21)
[2018-11-06] VITALS (34 sets, daily range): BP systolic 94–130; BP diastolic 56–70; PULSE 78–83; RESP 11–21
[2018-11-06] MEDS: DEXTROSE 5%-0.9% NACL 1,000 ML IV SCH (00:20)
[2018-11-06] MEDS: HEPARIN 25000 UNITS/250 ML 250 ML IV SCH (01:06)
[2018-11-06] MEDS: LEVOTHYROXINE 25 MCG TAB PO SCH (05:55)
[2018-11-06] MEDS: PANTOPRAZOLE (EC) 40 MG TAB PO SCH (05:55)
[2018-11-06] MEDS: ASPIRIN 81 MG TAB PO SCH (08:39)
[2018-11-06] MEDS: MULTIVITAMINS/MINERALS TAB PO SCH (08:39)
[2018-11-06] MEDS: ALLOPURINOL 100 MG TAB PO SCH (08:40)
[2018-11-06] MEDS: POLYETHYLENE GLYCOL 17 GM PACKET PO SCH (08:40)
--- NOTE | 2018-11-06 11:36 | CONS ---
Assessment/Plan Assessment/Plan Hospital Course (Demo Recall) IMPRESSION: 1. Bradycardia, in the setting of digoxin toxicity with sequelae of that digoxin toxicity and visual disturbances. -now improved overnight and off dopamine with HR 70-80's 2. Digoxin toxicity-Slowly improving status post Digibind. 3. Paroxysmal atrial fibrillation, currently in a likely junctional escape rhythm in the setting of digoxin toxicity, on Eliquis. 4. Hypertension, uncontrolled still 5. History of cardiomyopathy, decreased left ventricular ejection fraction. 6. History of coronary artery disease, status post coronary artery bypass graft surgery x4 in 2013. 7. Positive troponin in the setting of severe renal dysfunction and severe bradycardia- no sig uptrend 8. Dyslipidemia. 9. Acute on chronic renal failure, being followed by Dr. Driscoll/Kendy with ongo ing hydration.-making additional improvement 10. Hyperkalemia, improved. 11. Increased liver function tests, ongoing. 12. Hypothyroid-elevated TSH nand now started on synthroid, s/p endocrione cons ult Recc: -ok to transfer to [facility] -Now off dopamine with improved HR -will resume eliquis and c/ heparin as PPM not necessary -Follow renal function and volume status closely -Continue hydralazine but may need to be decreased as BP now decreased off of dopamine and follow BP clsoely -continue baby asa Consultation Date/Type/Reason Admit Date/Time Oct 25, 2018 at 23:41 Initial Consult Date 10/26/18 Type of Consult Cardiology Reason for Consultation bradycardia Requesting Provider: SHAKIRA GARCIA MD Date/Time of Note DATE: 11/06/18 TIME: 11:30 Exam/Review of Systems Vital Signs Vitals Vital Signs Date Temp Pulse Resp B/P (MAP) Pulse Ox O2 O2 Flow FiO2 Time Delivery Rate 11/06/18 82 08:00 11/06/18 97.4 20 106/63 98 Nasal 2.0 08:00 (77) Cannula Intake and Output 11/05/18 11/05/18 11/06/18 1515:00 23:00 07:00 IntakeIntake Total 842.37 ml 905.94 ml 257.91 ml OutputOutput Total 540 ml 290 ml 275 ml BalanceBalance 302.37 ml 615.94 ml -17.09 ml Exam Exam Review of Systems: CONSTITUTIONAL: No fevers, chills. PULMONARY: No sob CARDIOVASCULAR: No chest pain/palpitations GASTROINTESTINAL: No nausea/vomiting. GENITOURINARY: No hematuria/dysuria. MUSCULOSKELETAL: No myagias/arthalgias. PSYCHIATRIC: The patient denies depression. NEUROLOGIC: lethargic Constitutional: alert Psych: no complaints Head: normocephalic ENMT: mucosa pink and moist Neck: supple, jvd (9 cm water) Respiratory: diminished breath sounds (at bases/B) Cardiovascular: regular rate and rhythm Gastrointestinal: soft, non-tender Musculoskeletal: muscle tone (normal) Extremities: edema (trace/B) Neurological: lethargic (somewhat) Labs Result Diagram: 11/06/18 0455 11/06/18 0455 Results 24hrs Laboratory Tests Test 11/05/18 13:49 11/05/18 16:35 11/05/18 23:30 11/06/18 04:55 Activated > 180.0 *H 47.3 H 90.8 *H Partial Thromboplast Time White Blood Count 5.6 Red Blood Count 3.12 L Hemoglobin 9.6 L Hematocrit 29.8 L Mean Corpuscular 95.5 Volume Mean Corpuscular 30.8 Hemoglobin Mean Corpuscular 32.2 Hemoglobin Concent Red Cell 17.4 H Distribution Width Platelet Count 147 Mean Platelet Volume 11.1 H Immature 0.400 Granulocytes % Neutrophils % 77.9 H Lymphocytes % 9.9 L Monocytes % 7.3 Eosinophils % 4.1 Basophils % 0.4 Nucleated Red Blood 0.0 Cells % Immature 0.020 Granulocytes # Neutrophils # 4.4 Lymphocytes # 0.6 L Monocytes # 0.4 Eosinophils # 0.2 Basophils # 0.0 Nucleated Red Blood 0.0 Cells # Sodium Level 135 Potassium Level 4.6 Chloride Level 109 Carbon Dioxide Level 18 L Anion Gap 8 Blood Urea Nitrogen 52 H Creatinine 2.50 H Est Glomerular 19 L Filtrat Rate mL/min Glucose Level 83 # Calcium Level 8.0 L Phosphorus Level 4.1 Magnesium Level 2.2 Total Bilirubin 0.7 Direct Bilirubin 0.00 Indirect Bilirubin 0.7 Aspartate Amino 41 Transf (AST/SGOT) Alanine 43 Aminotransferase (AL T/SGPT) Alkaline Phosphatase 219 H Total Protein 5.5 #L Albumin 2.5 L Globulin 3.00 Albumin/Globulin 0.83 Ratio Test 11/06/18 06:55 Activated 75.7 *H Partial Thromboplast Time Medications Medications Current Medications IV Flush (NS 3 ml) 3 ml PER PROTOCOL IV ; Start 10/26/18 at 04:30 Ondansetron HCl (Zofran Inj) 4 mg Q6H PRN IV NAUSEA/VOMITING Last administered on 11/05/18at 11:37; Admin Dose 4 MG; Start 10/26/18 at 04:30 Acetaminophen (Tylenol Tab) 650 mg Q6H PRN PO .PAIN 1-3 OR TEMP; Start 10/26/18 at 04:30 Pantoprazole (Protonix Tab) 40 mg DAILY@06 PO Last administered on 11/06/18 05:55; Admin Dose 40 MG; Start 10/26/18 at 06:00 Aspirin (Aspirin) 81 mg DAILY PO Last administered on 11/06/18at 08:39; Admin Dose 81 MG; Start 10/26/18 at 09:00 Multivitamins/ Minerals (Theragran-M) 1 tab DAILY PO Last administered on 11/06/18at 08:39; Admin Dose 1 TAB; Start 10/26/18 at 09:00 Tramadol HCl (Ultram) 50 mg Q6 PRN PO PAIN; Start 10/26/18 at 04:30 Polyethylene Glycol (Miralax) 17 gm DAILY PO Last administered on 11/04/18at 09:25; Admin Dose 17 GM; Start 10/26/18 at 09:00 Apixaban (Eliquis) 2.5 mg BID PO Last administered on 10/31/18at 20:02; Admin Dose 2.5 MG; Start 10/26/18 at 21:00; Status Hold Allopurinol (Zyloprim) 200 mg DAILY PO Last administered on 11/06/18at 08:40; Admin Dose 200 MG; Start 10/27/18 at 09:00 Levothyroxine Sodium (Synthroid) 25 mcg DAILY@06 PO Last administered on 11/06/18at 05:55; Admin Dose 25 MCG; Start 10/28/18 at 06:00 Hydralazine HCl (Apresoline) 10 mg Q4H PRN IV ELEVATED BLOOD PRESSURE Last a dministered on 11/02/18at 17:35; Admin Dose 10 MG; Start 10/31/18 at 20:30 Hydralazine HCl (Apresoline) 25 mg TID PO Last administered on 11/06/18 08:39; Admin Dose 25 MG; Start 11/02/18 at 21:00 Metoclopramide HCl (Reglan) 10 mg Q6H PRN IV NAUSEA Last administered on 11/03/18 20:22; Admin Dose 10 MG; Start 11/03/18 at 20:00 Dopamine HCl 800 mg/Dextrose 250 ml @ 2.37 mls/hr TITRATE IV Last administered on 11/05/18 20:21; Admin Dose 1.18 MLS/HR; Start 11/04/18 at 12:00 Heparin Sodium (Porcine) (Heparin (1000 Units/ml)) 3,800 unit PER PROTOCOL PRN IV aPTT<47; Start 11/04/18 at 18:00 Heparin Sodium (Porcine) 250 ml @ 7.5 mls/hr PER PROTOCOL IV Last administered on 11/06/18at 01:06; Admin Dose 5.57 MLS/HR; Start 11/04/18 at 18:00 Dextrose/Sodium Chloride 1,000 ml @ 30 mls/hr Q24H IV Last administered on 11/06/18at 00:20; Admin Dose 30 MLS/HR; Start 11/05/18 at 11:00 ABDI SCHWARZ Nov 06, 2018 11:36
--- NOTE | 2018-11-06 11:57 | PN ---
Date/Time of Note Date/Time of Note DATE: 11/06/18 TIME: 11:53 Assessment/Plan VTE Prophylaxis Risk score (from [facility])>0 risk: 6 SCD applied (from [facility]): Yes Pharmacological prophylaxis: NA/contraindicated Pharm contraindication: low risk/ambulating Lines/Catheters IV C[facility]ter Type (from [facility] Central Line Central line still needed: Yes Urinary Cath still in place: Yes Reason Cath still needed: urinary retention Assessment/Plan Assessment/Plan asessment/Plan # Bradycardia, with of digoxin toxicity and visual disturbances.- slowly decreasing levels of digoxin with ongoing bradycardia s/p digibind? Sick sinus still has elevated dig levels to 3.5> 3.2 with poor clearnce , now on dopamine gtt > HR 70's on dopamine 5 > now improved off dopamine gtt since 11/05/18, digoxin levels decreasing # Paroxysmal atrial fibrillation, currently in a likely junctional escape rhythm in the setting of digoxin toxicity, on Eliquis> now on Heparin # DOUGLAS on CKD. Likely secondary to worsening renal failure due to digitalis t oxicity versus cardiorenal disease baseline creatinine is 1.6, . Had an abdominal ultrasound done that showed no high evidence of hydronephrosis, Cr SLOWLY IMPROVING WITH FORWARD FLOW # Hypertension # History of cardiomyopathy, decreased left ventricular ejection fraction. # History of coronary artery disease, status post coronary artery bypass graft surgery x4 in 2014. #. Positive troponin in the setting of severe renal dysfunction and severe bradycardia ?ACS #. Dyslipidemia. # hx of small transverse colon polyp, that was removed using the biopsy forceps. # Diverticulosis of the colon. #. Normocytic normochromic anemia more likely due to chronic kidney disease #. Transaminitis 2.2 dig. toxicity vs chronic. Base line is unknown #. Gout # hYpothyroidism # Mild hyponatremia # nausea.vommting likely sec to dig toxicity Plan - Off dopamine> HR spontaneously better> no pacemaker needed, digoxin levels better with improvement in renal fucntion and renal perfusion with dopamine - transfer out of ICU - advance diet - gentle iv fluids - left arm edema neg for DVT - cW heparin./ASA - cw ASA - monitor UOP - cw Levothyroxine 25 -Monitor kidney function currently no emergent indication of hemodialysis -Renally dose all meds - ? hydralzine Result Diagram: 11/06/18 0455 11/06/18 0455 Results 24hrs Laboratory Tests Test 11/05/18 13:49 11/05/18 16:35 11/05/18 23:30 11/06/18 04:55 Activated > 180.0 *H 47.3 H 90.8 *H Partial Thromboplast Time White Blood Count 5.6 Red Blood Count 3.12 L Hemoglobin 9.6 L Hematocrit 29.8 L Mean Corpuscular 95.5 Volume Mean Corpuscular 30.8 Hemoglobin Mean Corpuscular 32.2 Hemoglobin Concent Red Cell 17.4 H Distribution Width Platelet Count 147 Mean Platelet Volume 11.1 H Immature 0.400 Granulocytes % Neutrophils % 77.9 H Lymphocytes % 9.9 L Monocytes % 7.3 Eosinophils % 4.1 Basophils % 0.4 Nucleated Red Blood 0.0 Cells % Immature 0.020 Granulocytes # Neutrophils # 4.4 Lymphocytes # 0.6 L Monocytes # 0.4 Eosinophils # 0.2 Basophils # 0.0 Nucleated Red Blood 0.0 Cells # Sodium Level 135 Potassium Level 4.6 Chloride Level 109 Carbon Dioxide Level 18 L Anion Gap 8 Blood Urea Nitrogen 52 H Creatinine 2.50 H Est Glomerular 19 L Filtrat Rate mL/min Glucose Level 83 # Calcium Level 8.0 L Phosphorus Level 4.1 Magnesium Level 2.2 Total Bilirubin 0.7 Direct Bilirubin 0.00 Indirect Bilirubin 0.7 Aspartate Amino 41 Transf (AST/SGOT) Alanine 43 Aminotransferase (AL T/SGPT) Alkaline Phosphatase 219 H Total Protein 5.5 #L Albumin 2.5 L Globulin 3.00 Albumin/Globulin 0.83 Ratio Test 11/06/18 06:55 Activated 75.7 *H Partial Thromboplast Time Subjective 24 Hr Interval Summary Free Text/Dictation pt off dopamine since 8 pm u, HR 80'S now Exam/Review of Systems Exam Vitals Vital Signs Date Temp Pulse Resp B/P (MAP) Pulse Ox O2 O2 Flow FiO2 Time Delivery Rate 11/06/18 83 11 96/60 (72) 98 11:00 11/06/18 97.4 Nasal 2.0 08:00 Cannula Intake and Output 11/05/18 11/05/18 11/06/18 1515:00 23:00 07:00 IntakeIntake Total 842.37 ml 905.94 ml 257.91 ml OutputOutput Total 540 ml 290 ml 275 ml BalanceBalance 302.37 ml 615.94 ml -17.09 ml Exam Constitutional: alert, oriented Head: normocephalic Eyes: nl conjunctiva Cardiovascular: regular rate and rhythm Lungs: dec breath sounds bases Gastrointestinal: soft Musculoskeletal: muscle weakness left arm edema Results Results 24hrs Laboratory Tests Test 11/05/18 13:49 11/05/18 16:35 11/05/18 23:30 11/06/18 04:55 Activated > 180.0 *H 47.3 H 90.8 *H Partial Thromboplast Time White Blood Count 5.6 Red Blood Count 3.12 L Hemoglobin 9.6 L Hematocrit 29.8 L Mean Corpuscular 95.5 Volume Mean Corpuscular 30.8 Hemoglobin Mean Corpuscular 32.2 Hemoglobin Concent Red Cell 17.4 H Distribution Width Platelet Count 147 Mean Platelet Volume 11.1 H Immature 0.400 Granulocytes % Neutrophils % 77.9 H Lymphocytes % 9.9 L Monocytes % 7.3 Eosinophils % 4.1 Basophils % 0.4 Nucleated Red Blood 0.0 Cells % Immature 0.020 Granulocytes # Neutrophils # 4.4 Lymphocytes # 0.6 L Monocytes # 0.4 Eosinophils # 0.2 Basophils # 0.0 Nucleated Red Blood 0.0 Cells # Sodium Level 135 Potassium Level 4.6 Chloride Level 109 Carbon Dioxide Level 18 L Anion Gap 8 Blood Urea Nitrogen 52 H Creatinine 2.50 H Est Glomerular 19 L Filtrat Rate mL/min Glucose Level 83 # Calcium Level 8.0 L Phosphorus Level 4.1 Magnesium Level 2.2 Total Bilirubin 0.7 Direct Bilirubin 0.00 Indirect Bilirubin 0.7 Aspartate Amino 41 Transf (AST/SGOT) Alanine 43 Aminotransferase (AL T/SGPT) Alkaline Phosphatase 219 H Total Protein 5.5 #L Albumin 2.5 L Globulin 3.00 Albumin/Globulin 0.83 Ratio Test 11/06/18 06:55 Activated 75.7 *H Partial Thromboplast Time Medications Medication Current Medications IV Flush (NS 3 ml) 3 ml PER PROTOCOL IV ; Start 10/26/18 at 04:30 Ondansetron HCl (Zofran Inj) 4 mg Q6H PRN IV NAUSEA/VOMITING Last administered on 11/05/18at 11:37; Admin Dose 4 MG; Start 10/26/18 at 04:30 Acetaminophen (Tylenol Tab) 650 mg Q6H PRN PO .PAIN 1-3 OR TEMP; Start 10/26/18 at 04:30 Pantoprazole (Protonix Tab) 40 mg DAILY@06 PO Last administered on 11/06/18 05:55; Admin Dose 40 MG; Start 10/26/18 at 06:00 Aspirin (Aspirin) 81 mg DAILY PO Last administered on 11/06/18 08:39; Admin Dose 81 MG; Start 10/26/18 at 09:00 Multivitamins/ Minerals (Theragran-M) 1 tab DAILY PO Last administered on 11/06/18 08:39; Admin Dose 1 TAB; Start 10/26/18 at 09:00 Tramadol HCl (Ultram) 50 mg Q6 PRN PO PAIN; Start 10/26/18 at 04:30 Polyethylene Glycol (Miralax) 17 gm DAILY PO Last administered on 11/04/18 09:25; Admin Dose 17 GM; Start 10/26/18 at 09:00 Apixaban (Eliquis) 2.5 mg BID PO Last administered on 10/31/18 20:02; Admin Dose 2.5 MG; Start 10/26/18 at 21:00; Status Hold Allopurinol (Zyloprim) 200 mg DAILY PO Last administered on 11/06/18 08:40; Admin Dose 200 MG; Start 10/27/18 at 09:00 Levothyroxine Sodium (Synthroid) 25 mcg DAILY@06 PO Last administered on 11/06/18 05:55; Admin Dose 25 MCG; Start 10/28/18 at 06:00 Hydralazine HCl (Apresoline) 10 mg Q4H PRN IV ELEVATED BLOOD PRESSURE Last administered on 11/02/18 17:35; Admin Dose 10 MG; Start 10/31/18 at 20:30 Metoclopramide HCl (Reglan) 10 mg Q6H PRN IV NAUSEA Last administered on 11/03/18 20:22; Admin Dose 10 MG; Start 11/03/18 at 20:00 Dopamine HCl 800 mg/Dextrose 250 ml @ 2.37 mls/hr TITRATE IV Last administered on 11/05/18 20:21; Admin Dose 1.18 MLS/HR; Start 11/04/18 at 12:00 Dextrose/Sodium Chloride 1,000 ml @ 30 mls/hr Q24H IV Last administered on 6/19/19at 00:20; Admin Dose 30 MLS/HR; Start 11/05/18 at 11:00 Hydralazine HCl (Apresoline) 25 mg BID PO ; Start 11/06/18 at 21:00 SHAKIRA GARCIA MD Nov 06, 2018 11:57
[2018-11-06] MEDS ORDERED: LOPERAMIDE 2 MG CAP PO ONE (19:00)
[2018-11-06] MEDS: APIXABAN 5 MG TABLET PO SCH (21:25)
[2018-11-07] VITALS (59 sets, daily range): BP systolic 62–147; BP diastolic 42–106; PULSE 60–106; RESP 16–27
[2018-11-07] MEDS: ONDANSETRON 4 MG INJ IV PRN (00:53)
[2018-11-07] MEDS ORDERED: ALBUTEROL/IPRATROPIUM (NEB) 3 ML AMP HHN PRN (02:30)
[2018-11-07] MEDS: PANTOPRAZOLE (EC) 40 MG TAB PO SCH (05:48)
[2018-11-07] MEDS: LEVOTHYROXINE 25 MCG TAB PO SCH (05:48)
[2018-11-07] MEDS: APIXABAN 5 MG TABLET PO SCH (08:40)
[2018-11-07] MEDS: ASPIRIN 81 MG TAB PO SCH (08:41)
[2018-11-07] MEDS: ALLOPURINOL 100 MG TAB PO SCH (08:41)
[2018-11-07] MEDS: POLYETHYLENE GLYCOL 17 GM PACKET PO SCH (08:41)
[2018-11-07] MEDS: MULTIVITAMINS/MINERALS TAB PO SCH (08:41)
[2018-11-07] MEDS: DEXTROSE 5%-0.9% NACL 1,000 ML IV SCH (10:33)
--- NOTE | 2018-11-07 10:43 | CONS ---
Assessment/Plan Assessment/Plan Hospital Course (Demo Recall) IMPRESSION: 1. Bradycardia, in the setting of digoxin toxicity with sequelae of that digoxin toxicity and visual disturbances. -off dopamine with decreased digoxin levels but now with recurrent very long pause overnight and in AM as well as PAF with rvr c/w tachy-ezequiel 2. Digoxin toxicity-Slowly improving status post Digibind. 3. Paroxysmal atrial fibrillation, currently in a likely junctional escape rhythm in the setting of digoxin toxicity 4. Hypertension, uncontrolled still 5. History of cardiomyopathy, decreased left ventricular ejection fraction. 6. History of coronary artery disease, status post coronary artery bypass graft surgery x4 in 2013. 7. Positive troponin in the setting of severe renal dysfunction and severe bradycardia- no sig uptrend 8. Dyslipidemia. 9. Acute on chronic renal failure, being followed by Dr. Driscoll/Kendy with ongoing hydration.-making additional improvement 10. Hyperkalemia, improved. 11. Increased liver function tests, ongoing. 12. Hypothyroid-elevated TSH nand now started on synthroid, s/p endocrione consult Recc: -Tele -Now off dopamine with improved HR -Holding eliquis -pacer pads on patient and atropine at bedside -will schedule for PPM implant to take place likely tomorrow -Follow renal function and volume status closely -Continue hydralazineas tolerated Consultation Date/Type/Reason Admit Date/Time Oct 25, 2018 at 23:41 Initial Consult Date 10/26/18 Type of Consult Cardiology Reason for Consultation bradycardia/pause Requesting Provider: SHAKIRA GARCIA MD Date/Time of Note DATE: 11/07/18 TIME: 10:37 Exam/Review of Systems Vital Signs Vitals Vital Signs Date Temp Pulse Resp B/P (MAP) Pulse Ox O2 O2 Flow FiO2 Time Delivery Rate 11/07/18 62 08:21 11/07/18 Nasal 2.0 07:52 Cannula 11/07/18 98.4 20 126/59 95 07:43 (81) Intake and Output 11/06/18 11/06/18 11/07/18 1515:00 23:00 07:00 IntakeIntake Total 250 ml 30 ml 100 ml OutputOutput Total 180 ml 20 ml 150 ml BalanceBalance 70 ml 10 ml -50 ml Exam Exam Review of Systems: CONSTITUTIONAL: No fevers, chills. PULMONARY: No sob CARDIOVASCULAR: No chest pain/palpitations GASTROINTESTINAL: No nausea/vomiting. GENITOURINARY: No hematuria/dysuria. MUSCULOSKELETAL: No myagias/arthalgias. PSYCHIATRIC: The patient denies depression. NEUROLOGIC: No weakness Constitutional: alert, oriented Psych: no complaints ENMT: mucosa pink and moist Neck: supple, jvd (9 cm water) Respiratory: clear to auscultation Cardiovascular: regular rate and rhythm Gastrointestinal: soft, non-tender Musculoskeletal: muscle tone (no focal deficits) Extremities: edema (none) Neurological: other (No focal deficits) Labs Result Diagram: 11/07/18 0506 11/07/18 0506 Results 24hrs Laboratory Tests Test 11/07/18 05:06 White Blood Count 6.3 Red Blood Count 3.01 L Hemoglobin 9.6 L Hematocrit 29.3 L Mean Corpuscular Volume 97.3 Mean Corpuscular Hemoglobin 31.9 Mean Corpuscular Hemoglobin Concent 32.8 Red Cell Distribution Width 17.6 H Platelet Count 182 # Mean Platelet Volume 10.7 H Immature Granulocytes % 0.500 H Neutrophils % 85.0 H Lymphocytes % 5.8 L Monocytes % 7.0 Eosinophils % 1.4 Basophils % 0.3 Nucleated Red Blood Cells % 0.5 H Immature Granulocytes # 0.030 Neutrophils # 5.3 Lymphocytes # 0.4 L Monocytes # 0.4 Eosinophils # 0.1 Basophils # 0.0 Nucleated Red Blood Cells # 0.0 Sodium Level 135 Potassium Level 4.9 Chloride Level 107 Carbon Dioxide Level 19 L Anion Gap 9 Blood Urea Nitrogen 53 H Creatinine 2.67 H Est Glomerular Filtrat Rate mL/min 18 L Glucose Level 126 # Calcium Level 8.2 L Phosphorus Level 5.2 H Magnesium Level 2.3 Digoxin Level 1.6 Medications Medications Current Medications IV Flush (NS 3 ml) 3 ml PER PROTOCOL IV ; Start 10/26/18 at 04:30 Ondansetron HCl (Zofran Inj) 4 mg Q6H PRN IV NAUSEA/VOMITING Last administered on 11/07/18at 00:53; Admin Dose 4 MG; Start 10/26/18 at 04:30 Acetaminophen (Tylenol Tab) 650 mg Q6H PRN PO .PAIN 1-3 OR TEMP; Start 10/26/18 at 04:30 Pantoprazole (Protonix Tab) 40 mg DAILY@06 PO Last administered on 6/20/19at 05:48; Admin Dose 40 MG; Start 10/26/18 at 06:00 Aspirin (Aspirin) 81 mg DAILY PO Last administered on 11/07/18 08:41; Admin Dose 81 MG; Start 10/26/18 at 09:00 Multivitamins/ Minerals (Theragran-M) 1 tab DAILY PO Last administered on 11/07/18 08:41; Admin Dose 1 TAB; Start 10/26/18 at 09:00 Tramadol HCl (Ultram) 50 mg Q6 PRN PO PAIN; Start 10/26/18 at 04:30 Polyethylene Glycol (Miralax) 17 gm DAILY PO Last administered on 11/04/18 09:25; Admin Dose 17 GM; Start 10/26/18 at 09:00 Apixaban (Eliquis) 2.5 mg BID PO Last administered on 11/07/18 08:40; Admin Dose 2.5 MG; Start 10/26/18 at 21:00; Status Hold Allopurinol (Zyloprim) 200 mg DAILY PO Last administered on 11/07/18 08:41; Admin Dose 200 MG; Start 10/27/18 at 09:00 Levothyroxine Sodium (Synthroid) 25 mcg DAILY@06 PO Last administered on 11/07/18 05:48; Admin Dose 25 MCG; Start 10/28/18 at 06:00 Hydralazine HCl (Apresoline) 10 mg Q4H PRN IV ELEVATED BLOOD PRESSURE Last administered on 11/02/18 17:35; Admin Dose 10 MG; Start 10/31/18 at 20:30 Metoclopramide HCl (Reglan) 10 mg Q6H PRN IV NAUSEA Last administered on 11/03/18 20:22; Admin Dose 10 MG; Start 11/03/18 at 20:00 Dopamine HCl 800 mg/Dextrose 250 ml @ 2.37 mls/hr TITRATE IV Last administered on 11/05/18 20:21; Admin Dose 1.18 MLS/HR; Start 11/04/18 at 12:00 Dextrose/Sodium Chloride 1,000 ml @ 30 mls/hr Q24H IV Last administered on 11/07/18 10:33; Admin Dose 30 MLS/HR; Start 11/05/18 at 11:00 Hydralazine HCl (Apresoline) 25 mg BID PO Last administered on 11/07/18at 08:41; Admin Dose 25 MG; Start 11/06/18 at 21:00 Albuterol/ Ipratropium (Duoneb) 3 ml Q6H RESP THERAPY PRN HHN SHORTNESS OF BR EATH Last administered on 11/07/18at 03:09; Admin Dose 3 ML; Start 11/07/18 at 02:30 ABDI SCHWARZ Nov 07, 2018 10:43
[2018-11-07] MEDS ORDERED: ATROPINE 1 MG/10 ML SYRINGE IV SCH (11:00)
[2018-11-07] MEDS ORDERED: DOPamine-D5W 1.6 MG/ML 250 ML ONE (11:50)
--- NOTE | 2018-11-07 12:00 | QN ---
Documentation Comment Emergency medicine consultation note: CAMERON CARROLL was called on the patient as she lost pulses was bradycardic and stopped breathing. High-quality chest compressions were started and I was asked to intubate the patient. Endotracheal Intubation by me: Pre assessment performed. Patient was given etomidate 20 mg IV and succinylc holine 100 mg IV x1. Pre-oxygenation performed with 100% oxygen RSI: Performed w/o complication or hypoxic events. Medications as ordered. Blade: 4.0 ET Tube: 7.0 cm Depth: 21 cm at the lip Intubation confirmed by colorimetric CO2, equal breath sounds, quiet over the stomach. There was good rise and fall the chest. ET tube is in place resuscitation was also managed by her labview programmer Dr. Buchanan who was at the bedside. She did regain strong pulses and was on external pacing. Patient will be transported to the intensive care unit, further intervention and imaging will be deferred to admitting team and labview programmer. JENNY SALAZAR MD Nov 07, 2018 12:00
[2018-11-07] MEDS ORDERED: LIDOCAINE 1% (MDV) 20 ML INJ ONE (14:01)
[2018-11-07] MEDS ORDERED: LIDOCAINE 1% (MPF) 30 ML INJ INJ ONE (14:30)
[2018-11-07] MEDS ORDERED: PROPOFOL 200 MG INJ IV ONE (16:30)
--- NOTE | 2018-11-07 16:49 | PN ---
Date/Time of Note Date/Time of Note DATE: 11/07/18 TIME: 16:42 Assessment/Plan VTE Prophylaxis Risk score (from Ns)>0 risk: 5 SCD applied (from Ns): Yes Pharmacological prophylaxis: NA/contraindicated Pharm contraindication: low risk/ambulating Lines/Catheters IV Catheter Type (from [facility]): Central Line Central line still needed: Yes Urinary Cath still in place: Yes Reason Cath still needed: urinary retention Assessment/Plan Assessment/Plan 1 Bradycardia, with of digoxin toxicity and visual disturbances.- slowly decreasing levels of digoxin with ongoing bradycardia s/p digibind? Sick sinus still has elevated dig levels to 3.5> 3.2 with poor clearnce , now on dopamine gtt > HR 70's on dopamine 5 > now improved off dopamine gtt since 11/05/18, digoxin levels IMRPOVED however patient had long pauses and now and went into a cardiopulmonary arrest likely secondary to sick sinus syndrome status post transvenous pacemaker # Paroxysmal atrial fibrillation, currently in a likely junctional escape rhythm in the setting of digoxin toxicity, on Eliquis> now on Heparin # DOUGLAS on CKD. Likely secondary to worsening renal failure due to digitalis toxicity versus cardiorenal disease baseline creatinine is 1.6, . Had an abdominal ultrasound done that showed no high evidence of hydronephrosis, monitor kidney function now # Hypertension currently hypotensive # History of cardiomyopathy, decreased left ventricular ejection fraction. # History of coronary artery disease, status post coronary artery bypass graft surgery x4 in 2013. #. Positive troponin in the setting of severe renal dysfunction and severe bradycardia ?ACS #. Dyslipidemia. # hx of small transverse colon polyp, that was removed using the biopsy forceps. # Diverticulosis of the colon. #. Normocytic normochromic anemia more likely due to chronic kidney disease #. Transaminitis 2.2 dig. toxicity vs chronic. Base line is unknown #. Gout # hYpothyroidism # Mild hyponatremia # nausea.vommting likely sec to dig toxicity Plan - s/p Cardiopul arrest , on dopamine 4 , HR better sp temporary pacemaker, however digitalis levels had normalised - pacemaker tmw, temopray today - Monitor kidney function - vent mananegement per pulm - cw ASA - monitor UOP - cw Levothyroxine 25 -Monitor kidney function currently no emergent indication of hemodialysis -Renally dose all meds Result Diagram: 11/07/18 1237 11/07/18 1237 Results 24hrs Laboratory Tests Test 11/07/18 05:06 11/07/18 11:05 11/07/18 11:34 11/07/18 12:37 White Blood Count 6.3 6.8 Red Blood Count 3.01 L 3.12 L Hemoglobin 9.6 L 9.7 L Hematocrit 29.3 L 31.3 L Mean Corpuscular 97.3 100.3 Volume Mean Corpuscular 31.9 31.1 Hemoglobin Mean Corpuscular 32.8 31.0 L Hemoglobin Concent Red Cell 17.6 H 17.9 H Distribution Width Platelet Count 182 # 190 Mean Platelet Volume 10.7 H 10.5 H Immature 0.500 H 1.000 H Granulocytes % Neutrophils % 85.0 H 85.7 H Lymphocytes % 5.8 L 7.8 L Monocytes % 7.0 5.3 Eosinophils % 1.4 0.1 Basophils % 0.3 0.1 Nucleated Red Blood 0.5 H 2.1 H Cells % Immature 0.030 0.070 H Granulocytes # Neutrophils # 5.3 5.8 Lymphocytes # 0.4 L 0.5 L Monocytes # 0.4 0.4 Eosinophils # 0.1 0.0 Basophils # 0.0 0.0 Nucleated Red Blood 0.0 0.1 H Cells # Sodium Level 135 134 L Potassium Level 4.9 5.2 H Chloride Level 107 109 Carbon Dioxide Level 19 L 15 L Anion Gap 9 10 Blood Urea Nitrogen 53 H 53 H Creatinine 2.67 H 3.05 H Est Glomerular 18 L 15 L Filtrat Rate mL/min Glucose Level 126 # 190 Calcium Level 8.2 L 9.7 Phosphorus Level 5.2 H Magnesium Level 2.3 2.4 Digoxin Level 1.6 Bedside Glucose 150 201 Prothrombin Time 15.3 H Prothrombin Time 1.2 Ratio INR International 1.20 Normalized Ratio Activated 42.8 H Partial Thromboplast Time Test 11/07/18 12:39 Bedside Glucose 186 Subjective 24 Hr Interval Summary Free Text/Dictation Noted to have a 42nd Pause CODE BLUE was called as patient lost consciousness Patient intubated currently on propofol Patient also got transvenous pacemaker placed by Dr. Buchanan today Currently on dopamine 4 Exam/Review of Systems Exam Vitals Vital Signs Date Temp Pulse Resp B/P (MAP) Pulse Ox O2 O2 Flow FiO2 Time Delivery Rate 11/07/18 80 12:10 11/07/18 25 97 100 11:55 11/07/18 98.1 147/70 Nasal 11:12 (95) Cannula 11/07/18 2.0 07:52 Intake and Output 11/06/18 11/06/18 11/07/18 1515:00 23:00 07:00 IntakeIntake Total 250 ml 30 ml 100 ml OutputOutput Total 180 ml 20 ml 150 ml BalanceBalance 70 ml 10 ml -50 ml Exam Constitutional: INTUBATED however moving all extremities Head: normocephalic Eyes: nl conjunctiva Cardiovascular: regular rate and rhythm Lungs: dec breath sounds bases Gastrointestinal: soft Musculoskeletal: muscle weakness left arm edema Has a right transvenous pacemaker Results Results 24hrs Laboratory Tests Test 11/07/18 05:06 11/07/18 11:05 11/07/18 11:34 11/07/18 12:37 White Blood Count 6.3 6.8 Red Blood Count 3.01 L 3.12 L Hemoglobin 9.6 L 9.7 L Hematocrit 29.3 L 31.3 L Mean Corpuscular 97.3 100.3 Volume Mean Corpuscular 31.9 31.1 Hemoglobin Mean Corpuscular 32.8 31.0 L Hemoglobin Concent Red Cell 17.6 H 17.9 H Distribution Width Platelet Count 182 # 190 Mean Platelet Volume 10.7 H 10.5 H Immature 0.500 H 1.000 H Granulocytes % Neutrophils % 85.0 H 85.7 H Lymphocytes % 5.8 L 7.8 L Monocytes % 7.0 5.3 Eosinophils % 1.4 0.1 Basophils % 0.3 0.1 Nucleated Red Blood 0.5 H 2.1 H Cells % Immature 0.030 0.070 H Granulocytes # Neutrophils # 5.3 5.8 Lymphocytes # 0.4 L 0.5 L Monocytes # 0.4 0.4 Eosinophils # 0.1 0.0 Basophils # 0.0 0.0 Nucleated Red Blood 0.0 0.1 H Cells # Sodium Level 135 134 L Potassium Level 4.9 5.2 H Chloride Level 107 109 Carbon Dioxide Level 19 L 15 L Anion Gap 9 10 Blood Urea Nitrogen 53 H 53 H Creatinine 2.67 H 3.05 H Est Glomerular 18 L 15 L Filtrat Rate mL/min Glucose Level 126 # 190 Calcium Level 8.2 L 9.7 Phosphorus Level 5.2 H Magnesium Level 2.3 2.4 Digoxin Level 1.6 Bedside Glucose 150 201 Prothrombin Time 15.3 H Prothrombin Time 1.2 Ratio INR International 1.20 Normalized Ratio Activated 42.8 H Partial Thromboplast Time Test 11/07/18 12:39 Bedside Glucose 186 Medications Medication Current Medications IV Flush (NS 3 ml) 3 ml PER PROTOCOL IV ; Start 10/26/18 at 04:30 Ondansetron HCl (Zofran Inj) 4 mg Q6H PRN IV NAUSEA/VOMITING Last administered on 11/07/18at 00:53; Admin Dose 4 MG; Start 10/26/18 at 04:30 Acetaminophen (Tylenol Tab) 650 mg Q6H PRN PO .PAIN 1-3 OR TEMP; Start 10/26/18 at 04:30 Pantoprazole (Protonix Tab) 40 mg DAILY@06 PO Last administered on 11/07/18at 05:48; Admin Dose 40 MG; Start 10/26/18 at 06:00 Aspirin (Aspirin) 81 mg DAILY PO Last administered on 11/07/18at 08:41; Admin Dose 81 MG; Start 10/26/18 at 09:00 Multivitamins/ Minerals (Theragran-M) 1 tab DAILY PO Last administered on 11/07/18at 08:41; Admin Dose 1 TAB; Start 10/26/18 at 09:00 Tramadol HCl (Ultram) 50 mg Q6 PRN PO PAIN; Start 10/26/18 at 04:30 Polyethylene Glycol (Miralax) 17 gm DAILY PO Last administered on 11/04/18at 09:25; Admin Dose 17 GM; Start 10/26/18 at 09:00 Apixaban (Eliquis) 2.5 mg BID PO Last administered on 11/07/18 08:40; Admin Dose 2.5 MG; Start 10/26/18 at 21:00; Status Hold Allopurinol (Zyloprim) 200 mg DAILY PO Last administered on 11/07/18at 08:41; Admin Dose 200 MG; Start 10/27/18 at 09:00 Levothyroxine Sodium (Synthroid) 25 mcg DAILY@06 PO Last administered on 11/07/18at 05:48; Admin Dose 25 MCG; Start 10/28/18 at 06:00 Hydralazine HCl (Apresoline) 10 mg Q4H PRN IV ELEVATED BLOOD PRESSURE Last administered on 11/02/18 17:35; Admin Dose 10 MG; Start 10/31/18 at 20:30 Metoclopramide HCl (Reglan) 10 mg Q6H PRN IV NAUSEA Last administered on 11/03/18 20:22; Admin Dose 10 MG; Start 11/03/18 at 20:00 Dopamine HCl 800 mg/Dextrose 250 ml @ 2.37 mls/hr TITRATE IV Last administered on 11/05/18 20:21; Admin Dose 1.18 MLS/HR; Start 11/04/18 at 12:00 Dextrose/Sodium Chloride 1,000 ml @ 30 mls/hr Q24H IV Last administered on 11/07/18 10:33; Admin Dose 30 MLS/HR; Start 11/05/18 at 11:00 Hydralazine HCl (Apresoline) 25 mg BID PO Last administered on 11/07/18 08:41; Admin Dose 25 MG; Start 11/06/18 at 21:00 Albuterol/ Ipratropium (Duoneb) 3 ml Q6H RESP THERAPY PRN HHN SHORTNESS OF BREATH Last administered on 11/07/18 03:09; Admin Dose 3 ML; Start 11/07/18 at 02:30 Atropine Sulfate (Atropine (Syringe)) 0.4 mg PRN IV Last administered on 11/07/18 11:23; Admin Dose 0.4 MG; Start 11/07/18 at 11:00; Stop 11/07/18 at 23:00 Dopamine HCl/ Dextrose 250 ml @ 4.733 mls/ hr TITRATE IV ; Start 11/07/18 at 12:30 SHAKIRA GARCIA MD Nov 07, 2018 16:49
[2018-11-07] MEDS: DOPamine-D5W 1.6 MG/ML 250 ML IV SCH (16:50)
[2018-11-07] MEDS: PROPOFOL 100 ML IV SCH (16:58)
[2018-11-07] MEDS ORDERED: FENTAnyl (DRIP) 1000 mcg/100mL 100 ML IV SCH (20:30)
--- NOTE | 2018-11-07 21:29 | PN ---
DATE: 11/07/2018 Ms. Moncada is a 68-year-old female with a history of chronic kidney disease who had initially be en admitted with digoxin toxicity and bradycardia. The patient has had improvement in renal function , decreased digoxin level and is being transferred to telemetry floor. I was made aware that the pat ient having pause in the wirer helper and the patient had been written to have pacer pads placed in the patient and aspirin at bedside. The patient before this event happen had recurrent pause greater than 10 seconds, during which time she lost consciousness, stopped breathing and had asystole on her rhythm strip. The patient required epinephrine x2, aspirin x1 with return of spontaneous rhythm and good strong pulses and blood pressure. Dr. Mauro arrived in the emergency department and arcelia pat intubated the patient. Breath sounds were confirmed on both sides and the patient was taken to the ICU with pacer pads at this time on the patient. Subsequently prior to placing the ICU, the nurs e again became aware that the patient is having bradycardia and loss of pulse and subsequently was on again. The patient's pacer pads were connected to a new AED machine and therefore had adequate outp ut and capture was obtained. The patient required short term compressions she had during the first c ode, but quickly regained her pulse, had required 1 dose of atropine 1 mg. The patient thereafter co ntinued to have perfusing rhythm thereafter and was taken down to the intensive care unit intubated w ith stable blood pressure. Dictated By: ABDI JUÁREZ/NEREIDA Conf#: [id number] DID#: [id number] CC: RADHA DALE MD;*EndCC*
[2018-11-08] VITALS (63 sets, daily range): BP systolic 77–130; BP diastolic 48–69; PULSE 61–83; RESP 16–25
--- NOTE | 2018-11-08 05:46 | CARRPT ---
DATE OF PROCEDURE: 11/07/2018 ATTENDING PHYSICIAN: Abdi Buchanan MD TYPE OF PROCEDURE: Temporary transvenous wire placement through IJ approach. INDICATION: Recurrent symptomatic bradycardia as well as asystole. BRIEF HISTORY AND HOSPITAL COURSE: Ms. Moncada is a 68-year-old female with history of chronic k idney disease, hypertension, who initially presented with bradycardia and found to be digoxin toxic, required a Digibind and remained bradycardic. The patient transferred to ICU, placed on dopamine, leija d improvement in heart rates, renal function and decrease digoxin levels and returned to ____ of a sp ontaneous rhythm. The patient then subsequently had recurrent bradycardia and asystole, and had been retransferred back to the ICU where she remains on a transcutaneous pacing with dopamine, blood pres sure support. DESCRIPTION OF PROCEDURE: After informed consent was obtained, the patient remained in the intensive care unit. The patient had her IJ area prepped and draped in the usual sterile fashion and the C-ar m fluoroscopy unit was brought to the patient secure unit room. At this time, the patient had a prev ious internal jugular central line that had been placed. The patient underwent placement of a PICC l ine earlier in the day and the patient's dopamine, blood pressure support, was transferred to the PIC C line and at this time, the patient's internal jugular triple lumen central catheter was exchanged s terilely for a 7-[place] venous sheath, which was placed by myself, and subsequently through this a fl oated a balloon tipped temporary pacing wire into the inferior portion of the patient's ____ right ve ntricle and capture was confirmed down to 0.25 milliamps. At this time, the patient's temporary wire was then left in place with cover and the patient's sheath was sutured in place. A temporary pacing wire was placed following a demand setting at a rate of 60 with an output of 5 to remain there until placement of permanent pacemaker. This completed the procedure. There were no noted complications. IMPRESSION: Successful placement of a transvenous temporary pacing wire through internal jugular brody calvo through a sterilely placed 7-[place] venous sheath. RECOMMENDATIONS: The patient should remain with a temporary pacing wire and placed at output of leas t 5 times her threshold a minimum capture threshold and a rate of approximately 60% until placement o f permanent pacemaker can be undertaken. Dictated By: ABDI JUÁREZ/NTS Conf#: [id number] DID#: [id number] CC: RADHA DALE MD;*End*
[2018-11-08] MEDS: LEVOTHYROXINE 25 MCG TAB PO SCH (06:00)
[2018-11-08] MEDS: PANTOPRAZOLE (EC) 40 MG TAB PO SCH (06:00)
--- NOTE | 2018-11-08 07:46 | RADRPT ---
Vent Rate: 73 bpm RR Interval: 1016 msec DC Interval: [id number] msec QRS Duration: 90 msec QT Interval: 407 msec QTC Interval: 404 msec P-R-T [facility]: [id number] - -66 - 109 degrees Atrial fibrillation...? atrial activity Left anterior fascicular block...axis(240,-40), init forces inf Anterior infarct, old...Q >40mS, abnormal ST-T, V2-V5 Nonspecific T abnormalities, lateral leads...T <-0.10mV, I aVL V5 V6 Electronically Signed By: Gonzalez Jimenez
[2018-11-08] MEDS ORDERED: METOCLOPRAMIDE 10 MG INJ IV PRN (08:57)
[2018-11-08] MEDS: ALLOPURINOL 100 MG TAB PO SCH (09:00)
[2018-11-08] MEDS: MULTIVITAMINS/MINERALS TAB PO SCH (09:00)
[2018-11-08] MEDS: ASPIRIN 81 MG TAB PO SCH (09:00)
--- NOTE | 2018-11-08 09:50 | CONS ---
Assessment/Plan Assessment/Plan Assessment/Plan (Daily) Chest x-ray showing significant cardiomegaly without any overt CHF pattern. Ventilator setting; assist control of 20, tidal volume 450, PEEP of 5, 45% FiO2. Patient is currently on dopamine drip at 2.5 mics per kilogram per minute, propofol 10 mics per kilogram per minute. Assessment and recommendations; 1. Patient initially admitted with bradycardia arrhythmia due to digoxin toxicity was transferred to medical floor with the patient developed asystole requiring intubation and very brief CPR with stable clinical status now. 2. Underlying cardiomyopathy. 3. Chronic renal insufficiency, not requiring hemodialysis. 4. Anemia and thrombocytopenia. 5. History of hypothyroidism and gout. 6. Prior CABG. Continue current supportive care. Patient scheduled for permanent pacemaker placement today. Weaning from ventilator to be performed after pacemaker is placed. Meanwhile decrease FiO2 as tolerated. 40 minutes of critical care time was spent evaluating patient. Consultation Date/Type/Reason Admit Date/Time Oct 25, 2018 at 23:41 Date of Consultation: Nov 08, 2018 Type of Consult Pulmonary/critical care Patient is a 68-year-old lady who was admitted to the hospital with palpitations, patient was diagnosed with digoxin toxicity and was treated in ICU. Patient was transferred to medical floor where last evening patient had asystolic event requiring intubation. Apparently very brief CPR was done. Bob cota has not been transferred to ICU orally intubated. By the time I saw her, patient is orally intubated and despite on low-dose propofol is appropriately responsive. Patient did not appear to be in any distress. Past medical history; 1. History of chronic renal insufficiency, patient currently not on dialysis. 2. Underlying cardiomyopathy. 3. History of hypothyroidism and gout. 4. History of chronic atrial fibrillation. 5. Prior CABG. Medications; reviewed. Allergies; penicillin. Family history; noncontributory. Social history; patient has been a lifelong non-smoker. Occupational history; not available. Review of systems; currently unable to be obtained. General exam; elderly woman, orally intubated, mildly sedated but arousable. Currently in no distress. 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), other (A-fib, gout) Home Meds Reported Medications Tramadol HCl (Tramadol HCl) 50 Mg Tablet, 50 MG PO Q6H PRN for PAIN AND/OR INFLAMMATION, #120 TAB 10/26/18 Apixaban* (Eliquis*) 2.5 Mg Tablet, 2.5 MG PO BID, TAB 10/26/18 Pantoprazole* (Pantoprazole*) 40 Mg Tablet.dr, 40 MG PO AC BREAKFAST, TAB 10/26/18 Amiodarone Hcl* (Amiodarone Hcl*) 200 Mg Tablet, 200 MG PO DAILY, #30 TAB 10/26/18 Furosemide* (Furosemide*) 40 Mg Tablet, 40 MG PO DAILY, TAB 10/26/18 Losartan Potassium* (Losartan Potassium*) 50 Mg Tablet, 50 MG PO DAILY, TAB 10/26/18 Allopurinol* (Allopurinol*) 300 Mg Tablet, 300 MG PO DAILY, TAB 10/26/18 Amlodipine Besylate* (Amlodipine Besylate*) 5 Mg Tablet, 5 MG PO DAILY for 90 Days, #90 10/26/18 Lisinopril* (Lisinopril*) 2.5 Mg Tablet, 2.5 MG PO DAILY for 90 Days, #90 10/26/18 Metoprolol Tartrate* (Lopressor*) 50 Mg Tab, 50 MG PO BID for 90 Days, #180 10/26/18 Atorvastatin* (Atorvastatin*) 40 Mg Tablet, 40 MG PO QHS for 90 Days, #90 10/26/18 Rivaroxaban* (Xarelto*) 20 Mg Tablet, 20 MG PO DAILY for 90 Days, #90 10/26/18 Furosemide* (Furosemide*) 20 Mg Tablet, 20 MG PO DAILY for 90 Days, #90 10/26/18 Aspirin Delayed Release (Aspirin Delayed Release) 81 Mg Tablet.dr, 81 MG PO DAILY for 90 Days, #90 TAKE 1 TABLET BY MOUTH EVERY DAY 10/26/18 Medications Current Medications IV Flush (NS 3 ml) 3 ml PER PROTOCOL IV ; Start 10/26/18 at 04:30 Ondansetron HCl (Zofran Inj) 4 mg Q6H PRN IV NAUSEA/VOMITING Last administered on 11/07/18at 00:53; Admin Dose 4 MG; Start 10/26/18 at 04:30 Acetaminophen (Tylenol Tab) 650 mg Q6H PRN PO .PAIN 1-3 OR TEMP; Start 10/26/18 at 04:30 Pantoprazole (Protonix Tab) 40 mg DAILY@06 PO Last administered on 11/07/18 05:48; Admin Dose 40 MG; Start 10/26/18 at 06:00 Aspirin (Aspirin) 81 mg DAILY PO Last administered on 11/07/18 08:41; Admin Dose 81 MG; Start 10/26/18 at 09:00 Multivitamins/ Minerals (Theragran-M) 1 tab DAILY PO Last administered on 11/07/18 08:41; Admin Dose 1 TAB; Start 10/26/18 at 09:00 Tramadol HCl (Ultram) 50 mg Q6 PRN PO PAIN; Start 10/26/18 at 04:30 Polyethylene Glycol (Miralax) 17 gm DAILY PO Last administered on 11/04/18 09:25; Admin Dose 17 GM; Start 10/26/18 at 09:00 Apixaban (Eliquis) 2.5 mg BID PO Last administered on 11/07/18 08:40; Admin Dose 2.5 MG; Start 10/26/18 at 21:00; Status Hold Allopurinol (Zyloprim) 200 mg DAILY PO Last administered on 11/07/18 08:41; Admin Dose 200 MG; Start 10/27/18 at 09:00 Levothyroxine Sodium (Synthroid) 25 mcg DAILY@06 PO Last administered on 11/07/18 05:48; Admin Dose 25 MCG; Start 10/28/18 at 06:00 Hydralazine HCl (Apresoline) 10 mg Q4H PRN IV ELEVATED BLOOD PRESSURE Last administered on 11/02/18 17:35; Admin Dose 10 MG; Start 10/31/18 at 20:30 Dopamine HCl 800 mg/Dextrose 250 ml @ 2.37 mls/hr TITRATE IV Last administered on 11/05/18 20:21; Admin Dose 1.18 MLS/HR; Start 11/04/18 at 12:00 Dextrose/Sodium Chloride 1,000 ml @ 30 mls/hr Q24H IV Last administered on 11/07/18 10:33; Admin Dose 30 MLS/HR; Start 11/05/18 at 11:00 Hydralazine HCl (Apresoline) 25 mg BID PO Last administered on 6/20/19at 08:41; Admin Dose 25 MG; Start 11/06/18 at 21:00 Albuterol/ Ipratropium (Duoneb) 3 ml Q6H RESP THERAPY PRN HHN SHORTNESS OF BREATH Last administered on 11/07/18at 03:09; Admin Dose 3 ML; Start 11/07/18 at 02:30 Dopamine HCl/ Dextrose 250 ml @ 4.733 mls/ hr TITRATE IV Last administered on 11/07/18at 16:50; Admin Dose 23.663 MLS/HR; Start 11/07/18 at 12:30 Propofol 100 ml @ 1.893 mls/ hr Q12H IV Last administered on 11/07/18at 16:58; Admin Dose 1.893 MLS/HR; Start 11/07/18 at 17:00 Fentanyl 100 ml @ 2.5 mls/hr TITRATE IV ; Start 11/07/18 at 20:30 Metoclopramide HCl (Reglan) 5 mg Q6H PRN IV NAUSEA; Start 11/08/18 at 08:57 Allergies: Coded Allergies: Penicillins (Unverified Allergy, Mild, 11/23/13) RE-ENTERED UNCODED ALLERGY CODED Past Surgical History Past Surgical Hx: angioplasty, coronary bypass surgery Social History Alcohol Use: other (unknown) Smoking Status: Never smoker Drug Use: other (unknown) Exam/Review of Systems Exam Vitals Vital Signs Date Temp Pulse Resp B/P (MAP) Pulse Ox O2 O2 Flow FiO2 Time Delivery Rate 11/08/18 79 20 100 07:45 11/08/18 100/56 07:30 (71) 11/08/18 Mechanical 07:00 Ventilator 11/08/18 45 05:45 11/08/18 98.8 04:00 11/07/18 2.0 18:13 Intake and Output 11/07/18 11/07/18 11/08/18 1515:00 23:00 07:00 IntakeIntake Total 360 ml 396.892 ml 311.519 ml OutputOutput Total 145 ml 170 ml BalanceBalance 360 ml 251.892 ml 141.519 ml Exam H ENT exam; supple neck, positive JVD. No lymphadenopathy. Midline trachea. No thyromegaly. Orally intubated. Patient has fair dentition. Pupils are small bilaterally. Chest exam; diminished but clear breath sounds. S1-S2 audible, no murmurs. There is a well-healed sternal scar. Abdomen exam; soft, nondistended. No organomegaly. Bowel sounds are audible. Extremity exam; no peripheral edema. Pulses 1+. [employer] exam; patient awake and responsive. Results Result Diagram: 11/08/18 0400 11/08/18 0400 Results 24hrs Laboratory Tests Test 11/07/18 11:05 11/07/18 11:34 11/07/18 12:37 11/07/18 12:39 Bedside Glucose 150 201 186 White Blood Count 6.8 Red Blood Count 3.12 L Hemoglobin 9.7 L Hematocrit 31.3 L Mean Corpuscular 100.3 Volume Mean Corpuscular 31.1 Hemoglobin Mean Corpuscular 31.0 L Hemoglobin Concen t Red Cell 17.9 H Distribution Width Platelet Count 190 Mean Platelet 10.5 H Volume Immature 1.000 H Granulocytes % Neutrophils % 85.7 H Lymphocytes % 7.8 L Monocytes % 5.3 Eosinophils % 0.1 Basophils % 0.1 Nucleated Red 2.1 H Blood Cells % Immature 0.070 H Granulocytes # Neutrophils # 5.8 Lymphocytes # 0.5 L Monocytes # 0.4 Eosinophils # 0.0 Basophils # 0.0 Nucleated Red 0.1 H Blood Cells # Prothrombin Time 15.3 H Prothrombin Time 1.2 Ratio INR International 1.20 Normalized Ratio Activated 42.8 H Partial Thrombopl ast Time Sodium Level 134 L Potassium Level 5.2 H Chloride Level 109 Carbon Dioxide 15 L Level Anion Gap 10 Blood Urea 53 H Nitrogen Creatinine 3.05 H Est Glomerular 15 L Filtrat Rate mL/min Glucose Level 190 Calcium Level 9.7 Magnesium Level 2.4 Test 11/07/18 19:19 11/08/18 04:00 Blood Gas Blood arterial Specimen Source Arterial Blood 11/07/2018 7:50:2 Date Drawn 4 PM Arterial Blood pH 7.338 L (Temp corrected) Arterial Blood 28.5 L pCO2 (Temp correct) Arterial Blood 79.1 L pO2 (Temp corrected) Arterial Blood 15.0 L HCO3 Arterial Blood -9.6 L Base Excess Arterial Blood 95.0 Oxygen Saturation Edilson Test ACCEPTAB Arterial Blood Right Radial Gas Puncture Site Arterial 0.3 Blood Carboxyhemo globin Arterial Blood 0.2 Methemoglobin Blood Gas A-a O2 209.3 H Differential Oxyhemoglobin 94.5 Percent Blood Gas 37.0 Temperature Blood Gas 20.0 Respiration Rate Blood Gas Actual 23 Respiration Rate Blood Gas VENT - AC Modality FiO2 45.0 Blood Gas Tidal 450.0 Volume Blood Gas Low 5.0 PEEP Setting Blood Gas Notified Whom Blood Gas 11/07/2018 7:59:1 Notified Time 4 PM White Blood Count 7.6 Red Blood Count 2.83 L Hemoglobin 8.9 L Hematocrit 27.2 L Mean Corpuscular 96.1 Volume Mean Corpuscular 31.4 Hemoglobin Mean Corpuscular 32.7 Hemoglobin Concen t Red Cell 17.5 H Distribution Width Platelet Count 132 #L Mean Platelet 10.5 H Volume Immature 0.400 Granulocytes % Neutrophils % 80.4 H Lymphocytes % 8.6 L Monocytes % 8.2 Eosinophils % 2.0 Basophils % 0.4 Nucleated Red 0.7 H Blood Cells % Immature 0.030 Granulocytes # Neutrophils # 6.1 Lymphocytes # 0.7 L Monocytes # 0.6 Eosinophils # 0.2 Basophils # 0.0 Nucleated Red 0.1 H Blood Cells # Prothrombin Time 18.8 #H Prothrombin Time 1.5 Ratio INR International 1.56 Normalized Ratio Sodium Level 134 L Potassium Level 5.2 H Chloride Level 111 H Carbon Dioxide 16 L Level Anion Gap 7 Blood Urea 57 H Nitrogen Creatinine 3.05 H Est Glomerular 15 L Filtrat Rate mL/min Glucose Level 94 # Calcium Level 8.7 Phosphorus Level 4.5 Magnesium Level 2.3 Medications Medication Current Medications IV Flush (NS 3 ml) 3 ml PER PROTOCOL IV ; Start 10/26/18 at 04:30 Ondansetron HCl (Zofran Inj) 4 mg Q6H PRN IV NAUSEA/VOMITING Last administered on 11/07/18at 00:53; Admin Dose 4 MG; Start 10/26/18 at 04:30 Acetaminophen (Tylenol Tab) 650 mg Q6H PRN PO .PAIN 1-3 OR TEMP; Start 10/26/18 at 04:30 Pantoprazole (Protonix Tab) 40 mg DAILY@06 PO Last administered on 11/07/18at 05 :48; Admin Dose 40 MG; Start 10/26/18 at 06:00 Aspirin (Aspirin) 81 mg DAILY PO Last administered on 11/07/18at 08:41; Admin Dose 81 MG; Start 10/26/18 at 09:00 Multivitamins/ Minerals (Theragran-M) 1 tab DAILY PO Last administered on 11/07/18 08:41; Admin Dose 1 TAB; Start 10/26/18 at 09:00 Tramadol HCl (Ultram) 50 mg Q6 PRN PO PAIN; Start 10/26/18 at 04:30 Polyethylene Glycol (Miralax) 17 gm DAILY PO Last administered on 11/04/18 09:25; Admin Dose 17 GM; Start 10/26/18 at 09:00 Apixaban (Eliquis) 2.5 mg BID PO Last administered on 11/07/18 08:40; Admin Dose 2.5 MG; Start 10/26/18 at 21:00; Status Hold Allopurinol (Zyloprim) 200 mg DAILY PO Last administered on 11/07/18 08:41; Admin Dose 200 MG; Start 10/27/18 at 09:00 Levothyroxine Sodium (Synthroid) 25 mcg DAILY@06 PO Last administered on 11/07/18 05:48; Admin Dose 25 MCG; Start 10/28/18 at 06:00 Hydralazine HCl (Apresoline) 10 mg Q4H PRN IV ELEVATED BLOOD PRESSURE Last administered on 11/02/18 17:35; Admin Dose 10 MG; Start 10/31/18 at 20:30 Dopamine HCl 800 mg/Dextrose 250 ml @ 2.37 mls/hr TITRATE IV Last administered on 11/05/18 20:21; Admin Dose 1.18 MLS/HR; Start 11/04/18 at 12:00 Dextrose/Sodium Chloride 1,000 ml @ 30 mls/hr Q24H IV Last administered on 11/07/18 10:33; Admin Dose 30 MLS/HR; Start 11/05/18 at 11:00 Hydralazine HCl (Apresoline) 25 mg BID PO Last administered on 11/07/18 08:41; Admin Dose 25 MG; Start 11/06/18 at 21:00 Albuterol/ Ipratropium (Duoneb) 3 ml Q6H RESP THERAPY PRN HHN SHORTNESS OF BREATH Last administered on 11/07/18 03:09; Admin Dose 3 ML; Start 11/07/18 at 02:30 Dopamine HCl/ Dextrose 250 ml @ 4.733 mls/ hr TITRATE IV Last administered on 11/07/18at 16:50; Admin Dose 23.663 MLS/HR; Start 11/07/18 at 12:30 Propofol 100 ml @ 1.893 mls/ hr Q12H IV Last administered on 11/07/18at 16:58; Admin Dose 1.893 MLS/HR; Start 11/07/18 at 17:00 Fentanyl 100 ml @ 2.5 mls/hr TITRATE IV ; Start 11/07/18 at 20:30 Metoclopramide HCl (Reglan) 5 mg Q6H PRN IV NAUSEA; Start 11/08/18 at 08:57 PHILIPP CHISHOLM Nov 08, 2018 09:50
--- NOTE | 2018-11-08 10:15 | CONS ---
Assessment/Plan Assessment/Plan Hospital Course (Demo Recall) IMPRESSION: 1. Bradycardia, in the setting of digoxin toxicity with sequelae of that digoxin toxicity and visual disturbances. -off dopamine with decreased digoxin levels but now with recurrent very long pause overnight and in AM as well as PAF with rvr c/w tachy-ezequiel. now s/p temp wire placement yesterday for recurrent outs of asystole 2. Digoxin toxicity-Slowly improving levels but with recurrent asystole requiring temp wire placement 3. Paroxysmal atrial fibrillation-mainly paced at this time at 60 with intermittent intrinsic beats overriding pacer 4. Hypotension-on very low dose dopamine 5. History of cardiomyopathy, decreased left ventricular ejection fraction. 6. History of coronary artery disease, status post coronary artery bypass graft surgery x4 in 2014. 7. Positive troponin in the setting of severe renal dysfunction and severe bradycardia- no sig uptrend 8. Dyslipidemia. 9. Acute on chronic renal failure, being followed by Dr. Driscoll/Steff with ongoing hydration.-mild worsening but stable from yesterday to today 10. Hyperkalemia-borderline. 11. Increased liver function tests, ongoing. 12. Hypothyroid-elevated TSH nand now started on synthroid, s/p endocrine consult 14. coagulopathy-mild Recc: -IN ICU -on very low dose dopamine -Holding eliquis in anticipation of PPM implant tenatively scheduled for 3pm today -Maintain temp wire at current settings -Follow renal function and volume status closely and consider dose of lasix -Holding hydralazine in the setting of patient being on low dose dopamine and aspirin today -? low grade fever consider abx's ? aspiration. Will check cxr/blood cultures Consultation Date/Type/Reason Admit Date/Time Oct 25, 2018 at 23:41 Initial Consult Date 10/26/18 Type of Consult Cardiology Reason for Consultation bradycardia/asystole Requesting Provider: SHAKIRA GARCIA MD Date/Time of Note DATE: 11/08/18 TIME: 10:02 Exam/Review of Systems Vital Signs Vitals Vital Signs Date Temp Pulse Resp B/P (MAP) Pulse Ox O2 O2 Flow FiO2 Time Delivery Rate 11/08/18 79 20 100 07:45 11/08/18 100/56 07:30 (71) 11/08/18 Mechanical 07:00 Ventilator 11/08/18 45 05:45 11/08/18 98.8 04:00 11/07/18 2.0 18:13 Intake and Output 11/07/18 11/07/18 11/08/18 1515:00 23:00 07:00 IntakeIntake Total 360 ml 396.892 ml 311.519 ml OutputOutput Total 145 ml 170 ml BalanceBalance 360 ml 251.892 ml 141.519 ml Exam Exam Review of Systems: CONSTITUTIONAL: low grade PULMONARY: intubated CARDIOVASCULAR: No chest pain/palpitations GASTROINTESTINAL: No nausea/vomiting. GENITOURINARY: No hematuria/dysuria. MUSCULOSKELETAL: No myagias/arthalgias. PSYCHIATRIC: The patient denies depression. NEUROLOGIC: sedated but easily arousable Constitutional: other (sleeping, arouasble) ENMT: mucosa pink and moist, intubated Neck: supple, jvd, other (IJ line in place with temp wire in p/mey) Respiratory: diminished breath sounds Cardiovascular: irregular rhythm Gastrointestinal: soft, non-tender Musculoskeletal: muscle tone (normal) Extremities: edema (mild LE and upper extremity) Labs Result Diagram: 11/08/18 0400 11/08/18 0400 Results 24hrs Laboratory Tests Test 11/07/18 11:05 11/07/18 11:34 11/07/18 12:37 11/07/18 12:39 Bedside Glucose 150 201 186 White Blood Count 6.8 Red Blood Count 3.12 L Hemoglobin 9.7 L Hematocrit 31.3 L Mean Corpuscular 100.3 Volume Mean Corpuscular 31.1 Hemoglobin Mean Corpuscular 31.0 L Hemoglobin Concen t Red Cell 17.9 H Distribution Width Platelet Count 190 Mean Platelet 10.5 H Volume Immature 1.000 H Granulocytes % Neutrophils % 85.7 H Lymphocytes % 7.8 L Monocytes % 5.3 Eosinophils % 0.1 Basophils % 0.1 Nucleated Red 2.1 H Blood Cells % Immature 0.070 H Granulocytes # Neutrophils # 5.8 Lymphocytes # 0.5 L Monocytes # 0.4 Eosinophils # 0.0 Basophils # 0.0 Nucleated Red 0.1 H Blood Cells # Prothrombin Time 15.3 H Prothrombin Time 1.2 Ratio INR International 1.20 Normalized Ratio Activated 42.8 H Partial Thrombopl ast Time Sodium Level 134 L Potassium Level 5.2 H Chloride Level 109 Carbon Dioxide 15 L Level Anion Gap 10 Blood Urea 53 H Nitrogen Creatinine 3.05 H Est Glomerular 15 L Filtrat Rate mL/min Glucose Level 190 Calcium Level 9.7 Magnesium Level 2.4 Test 11/07/18 19:19 11/08/18 04:00 Blood Gas Blood arterial Specimen Source Arterial Blood 11/07/2018 7:50:2 Date Drawn 4 PM Arterial Blood pH 7.338 L (Temp corrected) Arterial Blood 28.5 L pCO2 (Temp correct) Arterial Blood 79.1 L pO2 (Temp corrected) Arterial Blood 15.0 L HCO3 Arterial Blood -9.6 L Base Excess Arterial Blood 95.0 Oxygen Saturation Edilson Test ACCEPTAB Arterial Blood Right Radial Gas Puncture Site Arterial 0.3 Blood Carboxyhemo globin Arterial Blood 0.2 Methemoglobin Blood Gas A-a O2 209.3 H Differential Oxyhemoglobin 94.5 Percent Blood Gas 37.0 Temperature Blood Gas 20.0 Respiration Rate Blood Gas Actual 23 Respiration Rate Blood Gas VENT - AC Modality FiO2 45.0 Blood Gas Tidal 450.0 Volume Blood Gas Low 5.0 PEEP Setting Blood Gas Notified Whom Blood Gas 11/07/2018 7:59:1 Notified Time 4 PM White Blood Count 7.6 Red Blood Count 2.83 L Hemoglobin 8.9 L Hematocrit 27.2 L Mean Corpuscular 96.1 Volume Mean Corpuscular 31.4 Hemoglobin Mean Corpuscular 32.7 Hemoglobin Concen t Red Cell 17.5 H Distribution Width Platelet Count 132 #L Mean Platelet 10.5 H Volume Immature 0.400 Granulocytes % Neutrophils % 80.4 H Lymphocytes % 8.6 L Monocytes % 8.2 Eosinophils % 2.0 Basophils % 0.4 Nucleated Red 0.7 H Blood Cells % Immature 0.030 Granulocytes # Neutrophils # 6.1 Lymphocytes # 0.7 L Monocytes # 0.6 Eosinophils # 0.2 Basophils # 0.0 Nucleated Red 0.1 H Blood Cells # Prothrombin Time 18.8 #H Prothrombin Time 1.5 Ratio INR International 1.56 Normalized Ratio Sodium Level 134 L Potassium Level 5.2 H Chloride Level 111 H Carbon Dioxide 16 L Level Anion Gap 7 Blood Urea 57 H Nitrogen Creatinine 3.05 H Est Glomerular 15 L Filtrat Rate mL/min Glucose Level 94 # Calcium Level 8.7 Phosphorus Level 4.5 Magnesium Level 2.3 Medications Medications Current Medications IV Flush (NS 3 ml) 3 ml PER PROTOCOL IV ; Start 10/26/18 at 04:30 Ondansetron HCl (Zofran Inj) 4 mg Q6H PRN IV NAUSEA/VOMITING Last administered on 11/07/18at 00:53; Admin Dose 4 MG; Start 10/26/18 at 04:30 Acetaminophen (Tylenol Tab) 650 mg Q6H PRN PO .PAIN 1-3 OR TEMP; Start 10/26/18 at 04:30 Pantoprazole (Protonix Tab) 40 mg DAILY@06 PO Last administered on 11/07/18 05:48; Admin Dose 40 MG; Start 10/26/18 at 06:00 Aspirin (Aspirin) 81 mg DAILY PO Last administered on 11/07/18 08:41; Admin Dose 81 MG; Start 10/26/18 at 09:00 Multivitamins/ Minerals (Theragran-M) 1 tab DAILY PO Last administered on 11/07/18 08:41; Admin Dose 1 TAB; Start 10/26/18 at 09:00 Tramadol HCl (Ultram) 50 mg Q6 PRN PO PAIN; Start 10/26/18 at 04:30 Polyethylene Glycol (Miralax) 17 gm DAILY PO Last administered on 11/04/18 09:25; Admin Dose 17 GM; Start 10/26/18 at 09:00 Apixaban (Eliquis) 2.5 mg BID PO Last administered on 11/07/18 08:40; Admin Dose 2.5 MG; Start 10/26/18 at 21:00; Status Hold Allopurinol (Zyloprim) 200 mg DAILY PO Last administered on 11/07/18 08:41; Admin Dose 200 MG; Start 10/27/18 at 09:00 Levothyroxine Sodium (Synthroid) 25 mcg DAILY@06 PO Last administered on 11/07/18 05:48; Admin Dose 25 MCG; Start 10/28/18 at 06:00 Hydralazine HCl (Apresoline) 10 mg Q4H PRN IV ELEVATED BLOOD PRESSURE Last administered on 11/02/18 17:35; Admin Dose 10 MG; Start 10/31/18 at 20:30 Dopamine HCl 800 mg/Dextrose 250 ml @ 2.37 mls/hr TITRATE IV Last administered on 11/05/18 20:21; Admin Dose 1.18 MLS/HR; Start 11/04/18 at 12:00 Dextrose/Sodium Chloride 1,000 ml @ 30 mls/hr Q24H IV Last administered on 11/07/18at 10:33; Admin Dose 30 MLS/HR; Start 11/05/18 at 11:00 Hydralazine HCl (Apresoline) 25 mg BID PO Last administered on 11/07/18at 08:41; Admin Dose 25 MG; Start 11/06/18 at 21:00 Albuterol/ Ipratropium (Duoneb) 3 ml Q6H RESP THERAPY PRN HHN SHORTNESS OF BREATH Last administered on 11/07/18at 03:09; Admin Dose 3 ML; Start 11/07/18 at 02:30 Dopamine HCl/ Dextrose 250 ml @ 4.733 mls/ hr TITRATE IV Last administered on 11/07/18at 16:50; Admin Dose 23.663 MLS/HR; Start 11/07/18 at 12:30 Propofol 100 ml @ 1.893 mls/ hr Q12H IV Last administered on 11/07/18at 16:58; Admin Dose 1.893 MLS/HR; Start 11/07/18 at 17:00 Fentanyl 100 ml @ 2.5 mls/hr TITRATE IV ; Start 11/07/18 at 20:30 Metoclopramide HCl (Reglan) 5 mg Q6H PRN IV NAUSEA; Start 11/08/18 at 08:57 ABDI SCHWARZ Nov 08, 2018 10:14
[2018-11-08] MEDS ORDERED: FUROSEMIDE 40 MG INJ IV ONE (10:30)
--- NOTE | 2018-11-08 11:46 | PN ---
ARSALAN MAJANO 11/08/18 1146: Date/Time of Note Date/Time of Note DATE: 11/08/18 TIME: 11:45 Assessment/Plan VTE Prophylaxis Risk score (from [facility] [place])>0 risk: 8 SCD applied (from [facility] [place]): Yes Pharmacological prophylaxis: NA/contraindicated Pharm contraindication: surgical contra Lines/Catheters IV C[facility]ter Type (from [facility] Mid Line Central line still needed: Yes Urinary Cath still in place: Yes Reason Cath still needed: urinary retention Assessment/Plan Hospital Course 1. Digoxin toxicity. Bradycardia. Status post transvenous pacemaker. S/p cardiopulmonary arrest 11/08/2018 2. CHF with elevated BNP. Trop. is also elevated. 3. Hypertension 4. CAD 5. S/p CORONARY ARTERY BYPASS 6. Hyperkalemia, resolved. It might be related to prerenal reasons, bradycardia. 7. DOUGLAS on CKD. Creatinine is improved 8. hx of small transverse colon polyp, that was removed using the biopsy forceps. 9. Diverticulosis of the colon. 10. Normocytic normochromic anemia more likely due to chronic kidney disease 11. Transaminitis 2.2 dig. toxicity vs chronic. Base line is unknown. Improved 12. Gout 13. Hypothyroidism 14. Prediabetic Assessment/Plan - s/p Cardiopulmonary arrest -INSERT NG tube -dietary consult -on dopamine 4 -sp temporary pacemaker, - pacemaker today - vent management per pulmonary dr Levy - ASA - monitor UOP -Monitor kidney function currently no emergent indication of hemodialysis -Renally dose all meds Result Diagram: 11/08/18 0400 11/08/18 0400 Results 24hrs Laboratory Tests Test 11/07/18 12:37 11/07/18 12:39 11/07/18 19:19 11/08/18 04:00 White Blood Count 6.8 7.6 Red Blood Count 3.12 L 2.83 L Hemoglobin 9.7 L 8.9 L Hematocrit 31.3 L 27.2 L Mean Corpuscular 100.3 96.1 Volume Mean Corpuscular 31.1 31.4 Hemoglobin Mean Corpuscular 31.0 L 32.7 Hemoglobin Concen t Red Cell 17.9 H 17.5 H Distribution Width Platelet Count 190 132 #L Mean Platelet 10.5 H 10.5 H Volume Immature 1.000 H 0.400 Granulocytes % Neutrophils % 85.7 H 80.4 H Lymphocytes % 7.8 L 8.6 L Monocytes % 5.3 8.2 Eosinophils % 0.1 2.0 Basophils % 0.1 0.4 Nucleated Red 2.1 H 0.7 H Blood Cells % Immature 0.070 H 0.030 Granulocytes # Neutrophils # 5.8 6.1 Lymphocytes # 0.5 L 0.7 L Monocytes # 0.4 0.6 Eosinophils # 0.0 0.2 Basophils # 0.0 0.0 Nucleated Red 0.1 H 0.1 H Blood Cells # Prothrombin Time 15.3 H 18.8 #H Prothrombin Time 1.2 1.5 Ratio INR International 1.20 1.56 Normalized Ratio Activated 42.8 H Partial Thrombopl ast Time Sodium Level 134 L 134 L Potassium Level 5.2 H 5.2 H Chloride Level 109 111 H Carbon Dioxide 15 L 16 L Level Anion Gap 10 7 Blood Urea 53 H 57 H Nitrogen Creatinine 3.05 H 3.05 H Est Glomerular 15 L 15 L Filtrat Rate mL/min Glucose Level 190 94 # Calcium Level 9.7 8.7 Magnesium Level 2.4 2.3 Bedside Glucose 186 Blood Gas Blood arterial Specimen Source Arterial Blood 11/07/2018 7:50:2 Date Drawn 4 PM Arterial Blood pH 7.338 L (Temp corrected) Arterial Blood 28.5 L pCO2 (Temp correct) Arterial Blood 79.1 L pO2 (Temp corrected) Arterial Blood 15.0 L HCO3 Arterial Blood -9.6 L Base Excess Arterial Blood 95.0 Oxygen Saturation Edilson Test ACCEPTAB Arterial Blood Right Radial Gas Puncture Site Arterial 0.3 Blood Carboxyhemo globin Arterial Blood 0.2 Methemoglobin Blood Gas A-a O2 209.3 H Differential Oxyhemoglobin 94.5 Percent Blood Gas 37.0 Temperature Blood Gas 20.0 Respiration Rate Blood Gas Actual 23 Respiration Rate Blood Gas VENT - AC Modality FiO2 45.0 Blood Gas Tidal 450.0 Volume Blood Gas Low 5.0 PEEP Setting Blood Gas Notified Whom Blood Gas 11/07/2018 7:59:1 Notified Time 4 PM Phosphorus Level 4.5 Test 11/08/18 11:02 Creatine Kinase 80 Creatine Kinase Pending Index Creatinine Kinase Pending MB (Mass) Troponin I Pending Subjective 24 Hr Interval Summary Subjective hx not possible: pt non-verbal Exam/Review of Systems Exam Vitals Vital Signs Date Temp Pulse Resp B/P (MAP) Pulse Ox O2 O2 Flow FiO2 Time Delivery Rate 11/08/18 79 20 100 07:45 11/08/18 100/56 07:30 (71) 11/08/18 Mechanical 07:00 Ventilator 11/08/18 45 05:45 11/08/18 98.8 04:00 11/07/18 2.0 18:13 Intake and Output 11/07/18 11/07/18 11/08/18 1515:00 23:00 07:00 IntakeIntake Total 360 ml 396.892 ml 311.519 ml OutputOutput Total 145 ml 170 ml BalanceBalance 360 ml 251.892 ml 141.519 ml Exam orally intubated Constitutional: frail, other (sedated with propofol) Head: normocephalic Neck: supple Respiratory: diminished breath sounds Cardiovascular: regular rate and rhythm, other (temp pacemaker) Gastrointestinal: soft Musculoskeletal: muscle weakness Additional Comments orally intubated Results Result Diagram: 11/08/18 0400 11/08/18 0400 Results 24hrs Laboratory Tests Test 11/07/18 12:37 11/07/18 12:39 11/07/18 19:19 11/08/18 04:00 White Blood Count 6.8 7.6 Red Blood Count 3.12 L 2.83 L Hemoglobin 9.7 L 8.9 L Hematocrit 31.3 L 27.2 L Mean Corpuscular 100.3 96.1 Volume Mean Corpuscular 31.1 31.4 Hemoglobin Mean Corpuscular 31.0 L 32.7 Hemoglobin Concen t Red Cell 17.9 H 17.5 H Distribution Width Platelet Count 190 132 #L Mean Platelet 10.5 H 10.5 H Volume Immature 1.000 H 0.400 Granulocytes % Neutrophils % 85.7 H 80.4 H Lymphocytes % 7.8 L 8.6 L Monocytes % 5.3 8.2 Eosinophils % 0.1 2.0 Basophils % 0.1 0.4 Nucleated Red 2.1 H 0.7 H Blood Cells % Immature 0.070 H 0.030 Granulocytes # Neutrophils # 5.8 6.1 Lymphocytes # 0.5 L 0.7 L Monocytes # 0.4 0.6 Eosinophils # 0.0 0.2 Basophils # 0.0 0.0 Nucleated Red 0.1 H 0.1 H Blood Cells # Prothrombin Time 15.3 H 18.8 #H Prothrombin Time 1.2 1.5 Ratio INR International 1.20 1.56 Normalized Ratio Activated 42.8 H Partial Thrombopl ast Time Sodium Level 134 L 134 L Potassium Level 5.2 H 5.2 H Chloride Level 109 111 H Carbon Dioxide 15 L 16 L Level Anion Gap 10 7 Blood Urea 53 H 57 H Nitrogen Creatinine 3.05 H 3.05 H Est Glomerular 15 L 15 L Filtrat Rate mL/min Glucose Level 190 94 # Calcium Level 9.7 8.7 Magnesium Level 2.4 2.3 Bedside Glucose 186 Blood Gas Blood arterial Specimen Source Arterial Blood 11/07/2018 7:50:2 Date Drawn 4 PM Arterial Blood pH 7.338 L (Temp corrected) Arterial Blood 28.5 L pCO2 (Temp correct) Arterial Blood 79.1 L pO2 (Temp corrected) Arterial Blood 15.0 L HCO3 Arterial Blood -9.6 L Base Excess Arterial Blood 95.0 Oxygen Saturation Edilson Test ACCEPTAB Arterial Blood Right Radial Gas Puncture Site Arterial 0.3 Blood Carboxyhemo globin Arterial Blood 0.2 Methemoglobin Blood Gas A-a O2 209.3 H Differential Oxyhemoglobin 94.5 Percent Blood Gas 37.0 Temperature Blood Gas 20.0 Respiration Rate Blood Gas Actual 23 Respiration Rate Blood Gas VENT - AC Modality FiO2 45.0 Blood Gas Tidal 450.0 Volume Blood Gas Low 5.0 PEEP Setting Blood Gas Notified Whom Blood Gas 11/07/2018 7:59:1 Notified Time 4 PM Phosphorus Level 4.5 Test 11/08/18 11:02 Creatine Kinase 80 Creatine Kinase Pending Index Creatinine Kinase Pending MB (Mass) Troponin I Pending Medications Medication Current Medications IV Flush (NS 3 ml) 3 ml PER PROTOCOL IV ; Start 10/26/18 at 04:30 Ondansetron HCl (Zofran Inj) 4 mg Q6H PRN IV NAUSEA/VOMITING Last administered on 11/07/18at 00:53; Admin Dose 4 MG; Start 10/26/18 at 04:30 Acetaminophen (Tylenol Tab) 650 mg Q6H PRN PO .PAIN 1-3 OR TEMP; Start 10/26/18 at 04:30 Pantoprazole (Protonix Tab) 40 mg DAILY@06 PO Last administered on 11/07/18at 05:48; Admin Dose 40 MG; Start 10/26/18 at 06:00 Aspirin (Aspirin) 81 mg DAILY PO Last administered on 11/07/18 08:41; Admin Dose 81 MG; Start 10/26/18 at 09:00 Multivitamins/ Minerals (Theragran-M) 1 tab DAILY PO Last administered on 11/07/18 08:41; Admin Dose 1 TAB; Start 10/26/18 at 09:00 Tramadol HCl (Ultram) 50 mg Q6 PRN PO PAIN; Start 10/26/18 at 04:30 Polyethylene Glycol (Miralax) 17 gm DAILY PO Last administered on 11/04/18 09:25; Admin Dose 17 GM; Start 10/26/18 at 09:00 Apixaban (Eliquis) 2.5 mg BID PO Last administered on 11/07/18 08:40; Admin Dose 2.5 MG; Start 10/26/18 at 21:00; Status Hold Allopurinol (Zyloprim) 200 mg DAILY PO Last administered on 11/07/18 08:41; Admin Dose 200 MG; Start 10/27/18 at 09:00 Levothyroxine Sodium (Synthroid) 25 mcg DAILY@06 PO Last administered on 11/07/18 05:48; Admin Dose 25 MCG; Start 10/28/18 at 06:00 Hydralazine HCl (Apresoline) 10 mg Q4H PRN IV ELEVATED BLOOD PRESSURE Last administered on 11/02/18 17:35; Admin Dose 10 MG; Start 10/31/18 at 20:30 Dopamine HCl 800 mg/Dextrose 250 ml @ 2.37 mls/hr TITRATE IV Last administered on 11/05/18 20:21; Admin Dose 1.18 MLS/HR; Start 11/04/18 at 12:00 Hydralazine HCl (Apresoline) 25 mg BID PO Last administered on 11/07/18 08:41; Admin Dose 25 MG; Start 11/06/18 at 21:00 Albuterol/ Ipratropium (Duoneb) 3 ml Q6H RESP THERAPY PRN HHN SHORTNESS OF BREATH Last administered on 11/07/18 03:09; Admin Dose 3 ML; Start 11/07/18 at 02:30 Dopamine HCl/ Dextrose 250 ml @ 4.733 mls/ hr TITRATE IV Last administered on 11/07/18at 16:50; Admin Dose 23.663 MLS/HR; Start 11/07/18 at 12:30 Propofol 100 ml @ 1.893 mls/ hr Q12H IV Last administered on 11/07/18at 16:58; Admin Dose 1.893 MLS/HR; Start 11/07/18 at 17:00 Fentanyl 100 ml @ 2.5 mls/hr TITRATE IV ; Start 11/07/18 at 20:30 Metoclopramide HCl (Reglan) 5 mg Q6H PRN IV NAUSEA; Start 11/08/18 at 08:57 SHAKIRA GARCIA MD 11/11/18 1040: Assessment/Plan Assessment/Plan Assessment/Plan seen and exmained with [employer] sp Lasix 40 today with good response on low dose dopamine pacemaker today montior for fevers, panculture and iv abx Result Diagram: 11/08/18 0400 11/08/18 0400 ARSALAN MAJANO Nov 08, 2018 11:46 SHAKIRA GARCIA MD Nov 11, 2018 10:40
[2018-11-08] MEDS: DOPamine-D5W 1.6 MG/ML 250 ML IV SCH (12:00)
[2018-11-08] MEDS ORDERED: morphine 2 MG INJ IV PRN (12:30)
[2018-11-08] MEDS: POLYETHYLENE GLYCOL 17 GM PACKET PO SCH (13:06)
--- NOTE | 2018-11-08 14:24 | PREAC ---
Date/Time of Note Date/Time of Note DATE: 11/08/18 TIME: 14:22 Anesthesia Eval and Record Evaluation Time Pre-Procedure Interview DATE: 11/08/18 TIME: 14:22 Age 68 Sex female NPO: 8 hrs Preoperative diagnosis ezequiel/tachy, asystol his Planned procedure pace maker placement Past Medical History Past Medical History: Includes Cardio: HTN, CAD, Other (cardiomyopathy) Pulm: Other (intubated) Surgery & Anesthesia Issues No known issue Meds Anticoagulation: Yes Beta Mary Jo within 24 hr: Yes Reported Medications Tramadol HCl (Tramadol HCl) 50 Mg Tablet, 50 MG PO Q6H PRN for PAIN AND/OR INFLAMMATION, #120 TAB 10/26/18 Apixaban* (Eliquis*) 2.5 Mg Tablet, 2.5 MG PO BID, TAB 10/26/18 Pantoprazole* (Pantoprazole*) 40 Mg Tablet.dr, 40 MG PO AC BREAKFAST, TAB 10/26/18 Amiodarone Hcl* (Amiodarone Hcl*) 200 Mg Tablet, 200 MG PO DAILY, #30 TAB 10/26/18 Furosemide* (Furosemide*) 40 Mg Tablet, 40 MG PO DAILY, TAB 10/26/18 Losartan Potassium* (Losartan Potassium*) 50 Mg Tablet, 50 MG PO DAILY, TAB 10/26/18 Allopurinol* (Allopurinol*) 300 Mg Tablet, 300 MG PO DAILY, TAB 10/26/18 Amlodipine Besylate* (Amlodipine Besylate*) 5 Mg Tablet, 5 MG PO DAILY for 90 Days, #90 10/26/18 Lisinopril* (Lisinopril*) 2.5 Mg Tablet, 2.5 MG PO DAILY for 90 Days, #90 10/26/18 Metoprolol Tartrate* (Lopressor*) 50 Mg Tab, 50 MG PO BID for 90 Days, #180 10/26/18 Atorvastatin* (Atorvastatin*) 40 Mg Tablet, 40 MG PO QHS for 90 Days, #90 10/26/18 Rivaroxaban* (Xarelto*) 20 Mg Tablet, 20 MG PO DAILY for 90 Days, #90 10/26/18 Furosemide* (Furosemide*) 20 Mg Tablet, 20 MG PO DAILY for 90 Days, #90 10/26/18 Aspirin Delayed Release (Aspirin Delayed Release) 81 Mg Tablet.dr, 81 MG PO DAILY for 90 Days, #90 TAKE 1 TABLET BY MOUTH EVERY DAY 10/26/18 Current Medications IV Flush (NS 3 ml) 3 ml PER PROTOCOL IV ; Start 10/26/18 at 04:30 Ondansetron HCl (Zofran Inj) 4 mg Q6H PRN IV NAUSEA/VOMITING Last administered on 11/07/18at 00:53; Admin Dose 4 MG; Start 10/26/18 at 04:30 Acetaminophen (Tylenol Tab) 650 mg Q6H PRN PO .PAIN 1-3 OR TEMP; Start 10/26/18 at 04:30 Pantoprazole (Protonix Tab) 40 mg DAILY@06 PO Last administered on 11/07/18 05:48; Admin Dose 40 MG; Start 10/26/18 at 06:00 Aspirin (Aspirin) 81 mg DAILY PO Last administered on 11/07/18 08:41; Admin Dose 81 MG; Start 10/26/18 at 09:00 Multivitamins/ Minerals (Theragran-M) 1 tab DAILY PO Last administered on 11/07/18 08:41; Admin Dose 1 TAB; Start 10/26/18 at 09:00 Tramadol HCl (Ultram) 50 mg Q6 PRN PO PAIN; Start 10/26/18 at 04:30 Polyethylene Glycol (Miralax) 17 gm DAILY PO Last administered on 11/04/18 09:25; Admin Dose 17 GM; Start 10/26/18 at 09:00 Apixaban (Eliquis) 2.5 mg BID PO Last administered on 11/07/18 08:40; Admin Dose 2.5 MG; Start 10/26/18 at 21:00; Status Hold Allopurinol (Zyloprim) 200 mg DAILY PO Last administered on 11/07/18 08:41; Admin Dose 200 MG; Start 10/27/18 at 09:00 Levothyroxine Sodium (Synthroid) 25 mcg DAILY@06 PO Last administered on 11/07/18 05:48; Admin Dose 25 MCG; Start 10/28/18 at 06:00 Hydralazine HCl (Apresoline) 10 mg Q4H PRN IV ELEVATED BLOOD PRESSURE Last administered on 11/02/18at 17:35; Admin Dose 10 MG; Start 10/31/18 at 20:30 Dopamine HCl 800 mg/Dextrose 250 ml @ 2.37 mls/hr TITRATE IV Last administered on 11/05/18at 20:21; Admin Dose 1.18 MLS/HR; Start 11/04/18 at 12:00 Hydralazine HCl (Apresoline) 25 mg BID PO Last administered on 11/07/18at 08:41; Admin Dose 25 MG; Start 11/06/18 at 21:00 Albuterol/ Ipratropium (Duoneb) 3 ml Q6H RESP THERAPY PRN HHN SHORTNESS OF BREATH Last administered on 11/07/18at 03:09; Admin Dose 3 ML; Start 11/07/18 at 02:30 Dopamine HCl/ Dextrose 250 ml @ 4.733 mls/ hr TITRATE IV Last administered on 11/08/18at 12:00; Admin Dose 4.733 MLS/HR; Start 11/07/18 at 12:30 Propofol 100 ml @ 1.893 mls/ hr Q12H IV Last administered on 11/07/18at 16:58; Admin Dose 1.893 MLS/HR; Start 11/07/18 at 17:00 Fentanyl 100 ml @ 2.5 mls/hr TITRATE IV ; Start 11/07/18 at 20:30 Metoclopramide HCl (Reglan) 5 mg Q6H PRN IV NAUSEA; Start 11/08/18 at 08:57 Morphine Sulfate (morphine) 1 mg Q4H PRN IV SEVERE PAIN LEVEL 7-10; Start 11/08/18 at 12:30 Meds reviewed: Yes Allergies Coded Allergies: Penicillins (Unverified Allergy, Mild, 11/23/13) RE-ENTERED UNCODED ALLERGY CODED Allergies Reviewed: Yes Labs/Studies Labs Reviewed: Reviewed by anesthesiologist Result Diagram: 11/08/18 0400 11/08/18 0400 Laboratory Tests 11/08/18 04:00 test: N/A Studies: ECG (a fib), CXR (cardiomegalyy, se the report) Pre-procedure Exam Last vitals Vital Signs Date Temp Pulse Resp B/P (MAP) Pulse Ox O2 O2 Flow FiO2 Time Delivery Rate 11/08/18 78 20 100 45 11:10 11/08/18 100/56 07:30 (71) 11/08/18 Mechanical 07:00 Ventilator 11/08/18 98.8 04:00 11/07/18 2.0 18:13 Airway: Adequate mouth opening Mallampati: Mallampati I (intubated) Teeth: Normal Lung: Normal Heart: Normal ASA Physical Status ASA physical status: 3 Emergency: None Planned Anesthetic General/MAC: MAC, TIVA Planned Pain Management Parenteral pain med Pre-operative Attestations Prior to commencing anesthesia and surgery, the patient was re-evaluated, there was verification of: *The patient's identity *The results of appropriate recent lab work and preoperative vital signs *The above evaluation not changing prior to induction *Anesthetic plan, risk benefits, alternative and complications discussed with patient/family; questions answered; patient/family understands, accepts and wishes to proceed. REJI QUINTEROS MD Nov 08, 2018 14:24
[2018-11-08] MEDS: PROPOFOL 100 ML IV SCH (15:16)
[2018-11-08] MEDS ORDERED: LEVOFLOXACIN 250MG/D5W (PMX) 50 ML IVPB SCH (15:30)
[2018-11-08] MEDS ORDERED: SODIUM CHLORIDE 0.9% IRR SCH ×2 (16:00)
[2018-11-08] MEDS ORDERED: VANCOMYCIN 1 GM IRR SCH ×2 (16:00)
[2018-11-08] MEDS ORDERED: VANCOMYCIN IV PER PHARMACY XX SCH (16:00)
[2018-11-08] MEDS ORDERED: EPHEDrine 25 MG/5 ML SYG ONE ×2 (16:02→17:47)
[2018-11-08] MEDS ORDERED: POLYMYXIN/BACITRACIN 1L IRRIG ONE (16:07)
[2018-11-08] MEDS ORDERED: LIDOCAINE 1%/EPI 30 ML INJ ONE (16:07)
[2018-11-08] MEDS ORDERED: VANCOMYCIN 1 GM INJ ONE (16:09)
[2018-11-08] MEDS ORDERED: FENTAnyl 50 MCG/ML VIAL ONE (16:38)
[2018-11-08] MEDS ORDERED: IOHEXOL 300MG/ML 30 ML BTL ONE (16:42)
[2018-11-08] MEDS ORDERED: ROCURONIUM 50 MG INJ ONE ×2 (16:52→18:28)
[2018-11-08] MEDS ORDERED: AMIODARONE 150 MG INJ ONE (16:54)
[2018-11-08] MEDS ORDERED: PHENYLephrine 10 MG INJ ONE ×2 (17:18→17:35)
[2018-11-08] MEDS ORDERED: NA BICARBONATE 8.4% 50 ML SYG ONE ×2 (17:35→18:07)
[2018-11-08] MEDS ORDERED: FUROSEMIDE 20 MG INJ ONE (17:39)
[2018-11-08] MEDS ORDERED: EPINEPHrine 0.1 MG/ML SYG ONE ×2 (17:46→18:07)
[2018-11-08] MEDS ORDERED: VANCOMYCIN 1 GM 250 ML IVPB SCH (18:00)
[2018-11-08] MEDS ORDERED: CA CHLORIDE 10% 10 ML SYRINGE ONE (18:07)
[2018-11-08] MEDS ORDERED: VANCOMYCIN 750 MG (PMX) 250 ML IVPB SCH (19:00)
--- NOTE | 2018-11-08 19:10 | SIPON ---
Date/Time of Note Date/Time of Note DATE: 11/08/18 TIME: 18:58 Operative Report Preoperative Diagnosis Sick sinus syndrome Bradycardiac with pauses >6 seconds without any reversible causes 11/08/18 Asystole s/p code blue x2 11/08/18 Temporary pacemaker 11/08/18 Atrial fibrillation Postoperative Diagnosis Sick sinus syndrome Bradycardiac with pauses >6 seconds without any reversible causes 11/08/18 Asystole s/p code blue x2 11/08/18 Temporary pacemaker 11/08/18 Atrial fibrillation Operation/Procedure Performed Attempted single chamber permanent pacemaker placement, complicated by VT/VF arrest, see discussion below. Surgeon see signature line physician assistant none Anesthesia: MAC Estimated blood loss: 0 - 10 ml's Transfusion Required none Specimen none Grafts/Implants none Complications After initial attempt at access, the patient became hypoxic. The anesthesiol ogist was having difficulty ventilating the patient. Immediately afterwords the patient went into VT cardiac arrest with no pulse. CPR was initiated and a code blue was called. There were 3 anesthesiologists at bedside and ER physician as well. Attempts were made to look for reversible causes including pneumothorax and cardiac tamponade which were eventually ruled out by fluoroscopy and bedside echo. ACLS protocol for resuscitation for hindu of circulation was done for approximately 45-50 minutes but no sustainable perfusion was achieved. I spoke with the patient's family during the code and they agreed with cessation of code. Time of was called at 18:14. The patient will be transferred back to the ICU for family to see her and I will call the neurology teacher per OR protocol. Please see full procedure dictation for more details. BLANCA ALBERT DO Nov 08, 2018 19:09
--- NOTE | 2018-11-08 20:52 | PN ---
DATE: 11/08/2018 HISTORY OF PRESENT ILLNESS: The patient was seen and examined prior to permanent pacemaker placement. Unable to obtain review of systems as the patient is currently intubated and sedated. The patient's 2 daughters are at bedside. I discussed the risks, benefits and alternatives of permanent pacemaker placement with the patient's daughters. I explained to them that it is a high risk procedure given that she coded yesterday for cardiac arrest and has severe renal failure. I discussed with them the risks of infection, major bleeding potentially requiring surgical repair, pneumothorax potentially requiring a chest tube, pericardial tamponade potentially needing pericardiocentesis, ventricular arrhythmias including VT, VF and cardiac arrest. After discussion with the patient's daughters, they agreed to proceed with the pacemaker implantation. The risks of anesthesia will be explained to the patient's family by the anesthesiologist. PHYSICAL EXAMINATION: VITAL SIGNS: Blood pressure 107/59, heart rate 75, O2 sat 100% on FiO2 of 45% on the ventilator, temperature 98.7. GENERAL: The patient was intubated and sedated on mechanical ventilation. HEART: She had an irregular rhythm, grade I/ systolic ejection murmur, telemetry showed underlying afib with ventricular placing from the temporary pacemaker wires EXTREMITIES: Warm, dry, 2+ pulses bilateral radial, dorsalis pedis and posterior tibial pulses, no clubbing, cyanosis or edema. LUNGS: Clear to auscultation bilaterally. No wheezes, crackles or rhonchi. Intubated on mechanical ventilation. GASTROINTESTINAL: Abdomen is soft, nontender, nondistended and had normoactive bowel sounds. LABORATORY DATA: Labs this morning at 4:00 a.m. showed hemoglobin of 8.9 (which was trending down over the past several days), platelets 132, INR 1.56. Sodium 134, potassium 5.2, creatinine 3.05, estimated GFR of 15. Troponin 1.430 (note this was done after cardiopulmonary resuscitation twice the day prior in the setting of severe acute kidney injury on chronic kidney disease with estimated GFR of 15). DIAGNOSTIC DATA: There was no chest x-ray done this morning. The chest x-ray done the day prior showed endotracheal intubation, cardiomegaly with calcified atherosclerosis of the aorta. A right central line placed with no visualized pneumothorax, central pulmonary vascular congestion with interstitial prominence in both lungs and possible left lower lobe atelectasis or infiltrate with a small pleural effusion, small right pleural effusion with basilar atelectasis and possible infiltrate. Echocardiogram 10/26/2018: Mild left ventricular systolic dysfunction, left ventricular ejection fraction 40-45%, grade 2 diastolic dysfunction, mild concentric left ventricular hypertrophy, akinetic inferolateral basal segment and inferoseptum basal segments of the left ventricle, mild right ventricular systolic dysfunction, severe enlargement of right ventricle, flattened septum in systole and diastole consistent with increased RV pressure and volume overload, mild enlargement of left atrium, severe enlargement of right atrium, trace mitral regurgitation, trace aortic valve regurgitation, moderate to severe tricuspid regurgitation and trace to mild pulmonic regurgitation. ASSESSMENT: 1. Atrial fibrillation with tachybrady syndrome with multiple long pauses and sinus arrest/asystole 2. Sinus arrest/asystole requiring temporary transvenous pacer placement on 11/08/2018 3. Cardiac arrest, secondary to asystole, successful return of spontaneous circulation after CPR 4. Hypotension, on low dose dopamine 5. Ventilator dependent respiratory failure status post intubation and mechanical ventilation after cardiac arrest 6. Digoxin toxicity, resolved, digoxin level 3.5 on 11/01/18 down to 1.6 on 11/07/18 7. Elevated troponin, troponin 1.430 (note this was done after cardiopulmonary resuscitation twice the day prior in the setting of severe acute kidney injury on chronic kidney disease with estimated GFR of 15) 8. Acute on chronic kidney disease 9. Hyperkalemia 10. Hyponatremia 11. Anemia of chronic disease 12. Thrombocytopenia 13. Coronary artery disease, status post 4 vessel coronary artery bypass graft surgery in 2013 14. Chronic systolic and diastolic heart failure, EF 40-45%, grade 2 diastolic dysfunction 15. Ischemic cardiomyopathy 16. Hyperlipidemia 17. Hypothyroidism 18. Coagulopathy, mild PLAN: Recommend permanent pacemaker placement. This is a class I indication for permanent pacemaker implantation. The risks and benefits and clinical indications were discussed, again as mentioned above with the patient's daughters who agreed to proceed with this high risk procedure in the setting of critical illness. Dictated By: BLANCA MORA/NEREIDA Conf#: [id number] DID#: [id number] CC: ABDI SCHWARZ MD; RADHA DALE MD;*EndCC* MTDD
--- NOTE | 2018-11-08 22:48 | SP ---
DATE OF PROCEDURE: 11/08/2018 EXEC. CREATIVE DIRECTOR: Sophia Hicks DO, F.A.C.C. PROCEDURES: 1. Attempted single chamber ventricular pacemaker placement. 2. Left subclavian venogram. TOTAL CONTRAST USED: 10 mL. INDICATION FOR PROCEDURE: This is a 68 year old female with a past medical history of atrial fibrillation, coronary artery disease status post myocardiac infarction and coronary artery bypass graft surgery in 2013, chronic systolic heart failure due to ischemic cardiomyopathy, hypertension, hyperlipidemia, chronic kidney disease and hypothyroidism who was admitted for Digoxin toxicity (digoxin level up to 14.2) and acute on chronic kidney disease. She had severe bradycardia with a ventricular escape rhythm in the 30s on admission. She was treated with Digibind and Atropine. Over the course of her hospitalization her digoxin levels slowly returned to normal, however she continued to have multiple long pauses and on 11/08/2018 she had an episode of Afib with sinus arrest/asystole which did not improve with dopamine. She had a cardiac arrest, was intubated and placed on mechanical ventilation and a temporary pacemaker was placed. She therefore has a class I indication for permanent pacemaker implantation. PROCEDURE DESCRIPTION: The patient was sedated and intubated on mechanical ventilation therefore informed consent was obtained from the patient's daughters. I discussed the risks, benefits and alternatives of permanent pacemaker placement with the patient's daughters. I explained to them that it is a high risk procedure given that she coded yesterday for cardiac arrest and has severe renal failure. I discussed with them the risks of infection, major bleeding potentially requiring surgical repair, pneumothorax potentially requiring a chest tube, pericardial tamponade potentially needing pericardiocentesis, and ventricular arrhythmias including VT, VF and cardiac arrest. After discussion with the patient's daughters, they agreed to proceed with the pacemaker implantation and informed consent was obtained in writing. The risks of anesthesia will be explained to the patient's family by the anesthesiologist. The patient was then brought to the OR in a fasting state and prepped and draped in the usual sterile fashion. Anesthesiology was present for managing deep sedation anesthesia and mechanical ventilation. The patient's oxygen saturation, continuous EKG and blood pressure were monitored throughout the procedure. A preprocedural timeout was performed per protocol to confirm the patient identity and the procedure to be performed. Local anesthesia with 2% lidocaine with epinephrine was infiltrated into the left infraclavicular region. Under fluoroscopic guidance, several attempts to access the left subclavian vein were unsuccessful. Initially a vein was accessed with a needle, however the guidewire was unable to be advanced. A left subclavian venogram with 10cc of contrast was done to better visualize the anatomy. The initial vein accessed was a very small branch off of the subclavian vein. Her left subclavian and axillary veins had a very deep course close to the ribs and the subclavian vein was very far below the clavicle as compared with typical anatomy. Extreme precaution was made to avoid puncturing the lung with the needle under fluoroscopic guidance. About 15 minutes into the case, the anesthesiologist reported that she was having difficulty ventilating the patient. The patient's blood pressure started to drop and almost immediately afterwards, the patient went into pulseless ventricular tachycardia cardiac arrest. CPR with high quality chest compressions was immediately started and a code blue was called. Initial defibrillator shock was administered with no return of pulse or rhythm. An attempt to overdrive pace her rhythm with the temporary pacemaker was unsuccessful. When the code team arrived, 2 additional anesthesiologists and a ER physician were at the bedside helping run the code. ACLS guidelines were followed and she was given multiple rounds of defibrillation and resuscitation medications including amiodarone, epinephrine, bicarbonate, magnesium and lidocaine. An exhaustive effort to look for any reversible causes of cardiac arrest was unavailing. A pneumothorax and cardiac tamponade were ruled out by fluoroscopy and bedside echo. Stat labs were obtained and showed that her hemoglobin remained stable at 9.1 from 8.9 and platelets remained stable at 121 from 132 earlier this morning. I found out after the code that the BMP and PT/INR tests were for some reason cancelled by the lab. The anesthesiologist said that she was not able to oxygenate the patient adequately throughout the entire code. ACLS protocol was continued for approximately 1 hour and 15 minutes, but sadly no sustainable perfusion was achieved. At that time I spoke with the patient's family and they agreed to stop resuscitation. Time of was called at 18:14. The patient will be transferred back to the ICU for family to see her. COMPLICATIONS: VT/VF cardiac arrest with unsuccessful attempt to resuscitate the patient as detailed above. CONCLUSION: 1. Attempted implantation of a single chamber ventricular pacemaker. 2. VT/VF cardiac arrest with unsuccessful attempt to resuscitate the patient. Dictated By: SOPHIA MORA/NEREIDA Conf#: [id number] DID#: [id number] CC: RADHA DALE MD;*EndCC* MTDD
--- NOTE | 2018-11-09 00:16 | PAC ---
Date/Time of Note Date/Time of Note DATE: 11/09/18 TIME: 00:12 Post-Anesthesia Notes Post-Anesthesia Note Last documented vital signs Vital Signs Date Temp Pulse Resp B/P (MAP) Pulse Ox O2 O2 Flow FiO2 Time Delivery Rate 11/08/18 75 16:00 11/08/18 18 107/59 100 15:30 (75) 11/08/18 45 15:20 11/08/18 98.7 15:00 11/08/18 Mechanical 07:00 Ventilator 11/07/18 2.0 18:13 Activity: Other Respiratory function: Other Cardiovascular function: Other Mental status: Other Pain reasonably controlled: No Hydration appropriate: No Nausea/Vomiting absent: No Comments pt was coded in the OR, CPR was done for more than one hour without success. after talking to family, decided to stop the code. all details and med in CPR records. REJI QUINTEROS MD Nov 09, 2018 00:16
[2018-11-09] MEDS ORDERED: FUROSEMIDE 20 MG INJ IV ONE (09:00)
== END 2018-11-08 18:14 | disposition expired | DRG 917 ==
LOC: E/R 19:56 → TEL 23:41 → ICU 10-31 17:17 → 6WM 11-06 16:28 → ICU 11-07 11:47 → 6WM 11-07 11:51 → ICU 11-07 11:57
PROVIDERS: ADMIT Internal Medicine Nephrology; ATTEND Internal Medicine Nephrology
PROC: 02HV33Z Insertion of Infusion Device into Superior Vena Cava, Percutaneous Approach (ICD-10-PCS; 2018-10-31)
PROC: B548ZZA Ultrasonography of Superior Vena Cava, Guidance (ICD-10-PCS; 2018-10-31)
PROC: 05HM33Z Insertion of Infusion Device into Right Internal Jugular Vein, Percutaneous Approach (ICD-10-PCS; principal; 2018-11-07)
PROC: 0BH17EZ Insertion of Endotracheal Airway into Trachea, Via Natural or Artificial Opening (ICD-10-PCS; 2018-11-07)
PROC: 5A1945Z Respiratory Ventilation, 24-96 Consecutive Hours (ICD-10-PCS; 2018-11-07)
PROC: B517YZA Fluoroscopy of Left Subclavian Vein using Other Contrast, Guidance (ICD-10-PCS; 2018-11-08)
PROC: 5A12012 Performance of Cardiac Output, Single, Manual (ICD-10-PCS; 2018-11-08)
DX: T46.0X1A Poisoning by cardiac-stimulant glycosides and drugs of similar action, accidental (unintentional), initial encounter (principal); I50.43 Acute on chronic combined systolic (congestive) and diastolic (congestive) heart failure; N17.9 Acute kidney failure, unspecified; I13.0 Hypertensive heart and chronic kidney disease with heart failure and stage 1 through stage 4 chronic kidney disease, or unspecified chronic kidney disease; I42.9 Cardiomyopathy, unspecified; I47.2 Ventricular tachycardia; I97.710 Intraoperative cardiac arrest during cardiac surgery; R00.1 Bradycardia, unspecified; I25.10 Atherosclerotic heart disease of native coronary artery without angina pectoris; M10.9 Gout, unspecified; D63.1 Anemia in chronic kidney disease; N18.9 Chronic kidney disease, unspecified; K57.90 Diverticulosis of intestine, part unspecified, without perforation or abscess without bleeding; E87.5 Hyperkalemia; I50.9 Heart failure, unspecified; E78.5 Hyperlipidemia, unspecified; I48.0 Paroxysmal atrial fibrillation; E03.9 Hypothyroidism, unspecified; Y65.8 Other specified misadventures during surgical and medical care; Y92.234 Operating room of hospital as the place of occurrence of the external cause; I49.01 Ventricular fibrillation; I25.2 Old myocardial infarction; Z95.1 Presence of aortocoronary bypass graft; Z86.73 Personal history of transient ischemic attack (TIA), and cerebral infarction without residual deficits
CPT/HCPCS: 31500; 36415; 36600; 71045; 76700; 80048; 80053; 80076; 80162; 81001; 82550; 82553; 82803; 82962; 83036; 83735; 83880; 84100; 84439; 84443; 84480; 84484; 85025; 85610; 85730; 86920; 87081; 92950; 93005; 93306; 93971; 94002; 94003; 94664; 94770; 96374; 96375; 96376; 97162; 97530; J0171; J0282; J0360; J0461; J1265; J1644; J1940; J2370; J2405; J2765; J3010; J3370; J7030; J7040; J7042; J7070; Q9967